=== PATIENT | female | born 1935 | race Caucasian/White ===

== ENCOUNTER 2016-08-24 08:45 | Inpatient (IN) | payer MEDICARE, OTHER ==
[2016-08-24 09:53] LABS: Hematocrit 36.5 % (37.0-47.0); Hemoglobin 11.6 gm/dL (12.5-16.0); Mean Cell Volume 88.4 fl (78-100); Mean Corpuscular Hemoglobin 28.1 pg (27-31); Mean Corpuscular Hgb Conc 31.8 g/dl (32-36); Mean Platelet Volume 9.6 fl (6.0-9.5); Platelet Count 313 K/mm3 (150-450); Red Blood Count 4.13 M/mm3 (4.2-5.4); Red Cell Distribution Width 12.7 % (11.5-14.0); White Blood Count 6.9 K/mm3 (4.0-10.5)
[2016-08-24 10:25] LABS: Albumin * 3.6 gm/dl (3.4-5.0); Anion Gap 13.8 mmol/L (6.8-13.8); Bilirubin, Total 0.6 mg/dL (0.0-1.1); Ca. Corrected For Albumin 8.9 mg/dL (8.4-10.2); Calcium * 8.9 mg/dL (7.9-10.9); Carbon Dioxide 26.3 mmol/L (24-32.6); Potassium 4.1 mmol/L (3.4-4.6); T4 Free * 1.07 ng/dL (0.76-1.46); TSH * 2.315 uIU/mL (0.358-3.74); Total Protein 7.6 gm/dL (6.2-8.2)
[2016-08-24] MEDS ORDERED: ACETAMINOPHEN 325 MG TABLET PO PRN (10:29)
[2016-08-24] MEDS: POTASSIUM CHLORIDE 40 MEQ in NORMAL SALINE 1,000 ML IV SCH (11:25)
[2016-08-24] MEDS: ENOXAPARIN SODIUM 40 MG/0.4 ML SYRG SC SCH (11:26)
--- NOTE | 2016-08-24 16:30 | HP ---
Chief Complaint - Chief Complaint Date of Service: 08/24/16 Time of Service: 00:45 Chief Complaint: Lightheadedness and passing out History of Present Illness: The patient complains of being lightheaded and passing out that has progressively gotten worse to the point that the patient states she is having multiple episodes daily. I originally saw the patient in the office for this issue on 05.09.2016. At that time, the patient reported that she had been lightheaded and dizzy since 2006 and that she has already had multiple tests done and was wondering if there was anything else we could do. She has gone through vestibular rehab without change in symptoms. She has seen ENT and ophthalmology without identification of etiology or improvement in symptoms. When describing these episodes, she states that approximately 20 seconds after she gets up from sitting she will have dizziness that will only last a few seconds before going away. She admits that it does not happen every time she stands and it was previously very intermittent but is now much more often and when she has an "epidose", she states it is quite bothersome. She denies any shortness of breath or chest pain. She admits to recently worsening vision that is blurry, fatigue, headaches, tremors and forgetfullness. She also admits to unintentional weight loss and her records show that she weighed 83.8kg less than one year ago on 08.31.2015 and she now weighs 74.8kg. Of note, patient has a history of ovarian cancer diagnosed around 2005 and she underwent surgery and states everything was taken care of with surgery and she has not followed with anyone regarding her cancer since she had surgery. Her most recent mammogram in April 2016 was fine. Her most recent colonoscopy in 2010 was also fine. She had a cardiac stress test in March 2012 which showed no signs of ischemia or infarct. Her recent 2D echo on 05.17.2016 was essentially unremarkable and showed EF 65-70%, mild LVH, LA mildly dilated, negative for septal defect. - Patient's Past Medical History Patient History - Medical: Diabetes Type 2, Depression, GERD, Osteoarthritis Patient History - Cardiac/Respiratory: No pertinent hx Patient History - Cancer: Chemotherapy history, Ovarian Patient History - Surgical Procedures: Cataracts, Colonoscopy, Hysterectomy, Other - oophorectomy LMP (females 10-50): Menopausal - Family History Brother Family History - Medical: Family History - Cardiac/Respiratory: Myocardial Infarction Father Family History - Medical: Mother Family History - Medical: , Diabetes Type 2 Insulin Dependent Sister Family History - Cardiac/Respiratory: Myocardial Infarction - Social History Living Situations: alone Does anyone smoke in the home?: No Smoking Status: Never smoker Have you smoked in the past 12 months: No Do you dip or chew tobacco: No Patient requests Smoking Cessation Consult: No Initiate information on Smoking Cessation: No Alcohol Use: none Drug Use: none Review Of Systems (GEN) - Review of Systems Generalized/Overall Review: Present: Fatigue, Weight loss. Absent: Chills, Fever EENTM: Present: Blurred Vision Respiratory: Present: No Symptoms Reported. Absent: Cough, Shortness of Breath Cardiac: Present: No Symptoms Reported, Syncope. Absent: Chest Pain, Edema, Palpitations Abdominal: Absent: Nausea, Vomiting, Constipation, Diarrhea, Melena, Bright blood from rectum Genitourinary: Present: No Symptoms Reported Musculoskeletal: Present: No Symptoms Reported Neurological: Present: Headache, Tremors, Other - Forgetful Skin: Present: No Symptoms Reported Endocrine: Present: No Symptoms Reported Allergies/Adverse Reactions: Allergies Allergy/AdvReac Type Severity Reaction Status Date / Time azithromycin [From Zithromax] Allergy Mild Hives Verified 08/24/16 10:43 erythromycin base AdvReac Mild NAUSEA, Verified 08/24/16 10:43 [Erythromycin Base] VOMITING Home Medications: HOME MEDICATIONS Aspirin [Aspirin Chewable] 81 mg PO DAILY 03/18/15 [Last Taken Unknown] Cyanocobalamin [Vitamin B-12] 1,000 mcg PO DAILY 03/18/15 [Last Taken Unknown] Docusate Sodium [Doc-Q-Lace] 100 mg PO DAILY 03/18/15 [Last Taken Unknown] Ibuprofen [Motrin] 200 mg PO Q6H PRN 08/24/16 [Last Taken Unknown] Multivitamin [One Daily Essential] 1 each PO DAILY 08/24/16 [Last Taken Unknown] Omeprazole [Prilosec] 20 mg PO DAILY 08/24/16 [Last Taken Unknown] Exam - Exam Vital Signs: Vital Signs - Last Taken Temp 36.4 C L 08/24/16 09:30 Pulse 72 08/24/16 14:06 Resp 20 08/24/16 09:30 BP 103/39 08/24/16 14:05 Pulse Ox 96 01/25/17 09:30 Constitutional: Present: Alert, Oriented x3, Cooperative, Well developed, Well nourished, No distress, Elderly ENT Exam: Present: normal ENT inspection, hearing grossly normal, pharynx normal , TMs normal, moist mucous membranes Eye Exam: bilateral eye: normal inspection, PERRL, EOMI, other - No nystagmus appreciated Neck: Present: non-tender, normal inspection Respiratory: Present: lungs clear, normal breath sounds, no respiratory distress , no accessory muscle use Cardiovascular/Chest: Present: regular rate, rhythm, no JVD, no murmur, other - Trace lower extremity edema bilaterally Peripheral Pulses: carotid (R): 2+, carotid (L): 2+ Abdomen: Present: Normal bowel sounds, soft, nontender, nondistended, no rebound tenderness Extremity: Present: normal inspection, pedal edema - trace Skin Exam: Present: normal color, warm/dry. Absent: skin rash Neurologic: Present: no motor/sensory deficits, alert, normal mood/affect, oriented x 3 Appearance: Present: appropriate appearance, appropriate insight, neat, no memory impairment Eye contact: Present: cooperative, good eye contact, normal speech Thoughts: Present: normal thought pattern, no apparent hallucination Diagnostic Studies: Abnormal Lab Results 08/24/16 08/24/16 Range/Units 09:51 09:51 RBC 4.13 L (4.2-5.4) M/mm3 Hgb 11.6 L (12.5-16.0) gm/dL Hct 36.5 L (37.0-47.0) % MCHC 31.8 L (32-36) g/dl MPV 9.6 H (6.0-9.5) fl Est GFR (Non-Af Amer) 52 L (60-130) mL/min Random Glucose 149 H (70-110) mg/dL ALT 18 L (19-67) U/L Laboratory Results WBC 6.9 K/mm3 (4.0-10.5) 08/24/16 09:51 RBC 4.13 M/mm3 (4.2-5.4) L 08/24/16 09:51 Hgb 11.6 gm/dL (12.5-16.0) L 08/24/16 09:51 Hct 36.5 % (37.0-47.0) L 08/24/16 09:51 MCV 88.4 fl (78-100) 08/24/16 09:51 MCH 28.1 pg (27-31) 08/24/16 09:51 MCHC 31.8 g/dl (32-36) L 08/24/16 09:51 RDW 12.7 % (11.5-14.0) 08/24/16 09:51 Plt Count 313 K/mm3 (150-450) 08/24/16 09:51 MPV 9.6 fl (6.0-9.5) H 08/24/16 09:51 Sodium 139 mmol/L (132-142) 08/24/16 09:51 Plasma Sodium 140 mmol/L (130-142) 08/24/16 09:51 Potassium 4.1 mmol/L (3.4-4.6) D 08/24/16 09:51 Chloride 103 mmol/L (97-106) 08/24/16 09:51 Carbon Dioxide 26.3 mmol/L (24-32.6) 08/24/16 09:51 Anion Gap 13.8 mmol/L (6.8-13.8) 08/24/16 09:51 BUN 13 mg/dL (3-23) 08/24/16 09:51 Creatinine 1.08 mg/dL (0.4-1.4) 08/24/16 09:51 Est GFR (Non-Af Amer) 52 mL/min (60-130) L 08/24/16 09:51 BUN/Creatinine Ratio 12.0 (9.0-21.6) 08/24/16 09:51 Random Glucose 149 mg/dL (70-110) H 08/24/16 09:51 Calcium 8.9 mg/dL (7.9-10.9) 08/24/16 09:51 Calcium Adj for Albumin 8.9 mg/dL (8.4-10.2) 08/24/16 09:51 Total Bilirubin 0.6 mg/dL (0.0-1.1) 08/24/16 09:51 AST 15 U/L (0-48) 08/24/16 09:51 ALT 18 U/L (19-67) L 08/24/16 09:51 Alkaline Phosphatase 52 U/L (50-170) 08/24/16 09:51 Total Protein 7.6 gm/dL (6.2-8.2) 08/24/16 09:51 Albumin 3.6 gm/dl (3.4-5.0) 08/24/16 09:51 TSH 2.315 uIU/mL (0.358-3.74) 08/24/16 09:51 Free T4 1.07 ng/dL (0.76-1.46) 08/24/16 09:51 Assessment/Plan - Narrative Narrative: IMPRESSION AND PLAN: Syncope -Monitor on telemetry -Orthostatic vitals q8h -IVF hydration with NS + 40mEq KCL @ 75cc/hr -Check cortisol level, TSH -Check MRI brain and carotid ultrasound -Given history of ovarian cancer and weight loss in combination with progressively worsening syncope and near syncope, order placed for CT chest, abdomen and pelvis both with and without contrast -PT evaluation and treatment -If work-up unrevealing, consider tilt table testing and/or cardiology consult Unintentional Weight Loss -Await CT results CHRONIC, STABLE MEDICAL CONDITIONS: Type 2 DM: Diet controlled. Recent A1c 6.6%. HLD: Diet controlled. GERD: Continue home PPI VTE Prophylaxis: Lovenox, SCDs Code Status: Full Code - Assessment/Plan (1) Syncopal episodes Problem: Acute (2) Syncope Problem: Acute (3) Orthostasis Problem: Acute (4) Orthostatic hypotension Problem: Acute (5) Weight loss Problem: Acute
[2016-08-25] MEDS ORDERED: DIATRIZOATE MEGLU/DIATRIZO SOD 30 ML BTL PO ONE (05:30)
[2016-08-25 06:33] LABS: Anion Gap 13.3 mmol/L (6.8-13.8); BUN/Creatinine Ratio 13.2 (9.0-21.6); Calcium * 8.2 mg/dL (7.9-10.9); Carbon Dioxide 26.2 mmol/L (24-32.6); Estimated Creat Clear 29.3; Magnesium 1.7 mg/dL (1.2-2.8); Potassium 4.5 mmol/L (3.4-4.6)
[2016-08-25] MEDS: PANTOPRAZOLE SODIUM 20 MG TABLET.DR PO SCH (07:01)
[2016-08-25] MEDS: DOCUSATE SODIUM 100 MG CAPSULE PO SCH (09:33)
[2016-08-25] MEDS: CYANOCOBALAMIN 1,000 MCG TABLET PO SCH (09:33)
[2016-08-25] MEDS: ASPIRIN 81 MG TAB.CHEW PO SCH (09:33)
[2016-08-25] MEDS: MULTIVITAMINS 1 CAP CAPSULE PO SCH (09:33)
[2016-08-25] MEDS: FLUDROCORTISONE ACETATE 0.1 MG TABLET PO SCH (11:09)
[2016-08-25] MEDS: ENOXAPARIN SODIUM 40 MG/0.4 ML SYRG SC SCH (11:09)
--- NOTE | 2016-08-25 15:11 | PN ---
Subjective - Date and Time Seen Date: 08/25/16 Time: 08:30 Subjective Narrative: Patient seen and examined this AM shortly after completing her CT scans. No acute issues overnight and she denies any new issues or concerns. Continues to have intermittent lightheadedness with standing. Objective - Review of Systems Generalized/Overall Review: Reports: Fatigue, Weight loss. Denies: Chills, Fever EENTM: Reports: Blurred Vision Respiratory: Reports: No Symptoms Reported. Denies: Shortness of Breath Cardiac: Reports: Syncope, Other - Lightheaded, orthostatic symptoms. Denies: Chest Pain, Edema, Palpitations Abdominal: Reports: No Symptoms Reported Genitourinary Symptoms: Reports: No Symptoms Reported Musculoskeletal Complaints: Reports: No Symptoms Reported Neurological: Reports: Headache, Tremors Skin: Reports: No Symptoms Reported Endocrine: Reports: No Symptoms Reported - Vitals Vitals: Last Vital Signs Temp 36.7 C 08/25/16 10:16 Pulse 78 08/25/16 10:16 Resp 20 08/25/16 10:16 BP 154/53 08/25/16 10:16 Pulse Ox 99 08/25/16 10:16 - Abnormal Lab Findings Abnormal Lab Findings: Abnormal Lab Results 08/25/16 Range/Units 06:05 Plasma Sodium 143 H (130-142) mmol/L Est GFR (Non-Af Amer) 53 L (60-130) mL/min Random Glucose 246 H D (70-110) mg/dL - Exam Constitutional: Present: Alert, Oriented x3, Cooperative, Well developed, Well nourished, No distress, Elderly ENT Exam: Present: normal ENT inspection, hearing grossly normal Respiratory: Present: lungs clear, normal breath sounds, no respiratory distress , no accessory muscle use Cardiovascular/Chest: Present: regular rate, rhythm, no JVD Abdomen: Present: Normal bowel sounds, soft, nontender, nondistended, no rebound tenderness Extremity: Present: normal inspection Skin Exam: Present: warm/dry. Absent: skin rash Neurologic: Present: no motor/sensory deficits, alert, normal mood/affect, oriented x 3 Appearance: Present: appropriate appearance, appropriate insight, neat, no memory impairment Eye contact: Present: cooperative, good eye contact, normal speech Thoughts: Present: normal thought pattern, no apparent hallucination Assessment/Plan Plan Narrative: IMPRESSION AND PLAN: Syncope -Orthostatic Hypotension. Work-up unrevealing thus far. Start fludrocortisone daily. Continue to monitor orthostatic vitals. -Admit Inpatient. Despite IVFs, patient remains orthostatic. -No events on telemetry. Discontinue tele today. -Continue Orthostatic vitals q8h -Continue IVF hydration with NS + 40mEq KCL @ 75cc/hr -Thyroid studies unremarkable -Cortisol level pending -CT chest/abdomen/pelvis, MRI brain and carotid ultrasound unremarkable -PT evaluation and treatment CHRONIC, STABLE MEDICAL CONDITIONS: Type 2 DM: Diet controlled. Recent A1c 6.6%. HLD: Diet controlled. GERD: Continue home PPI VTE Prophylaxis: Lovenox, SCDs Code Status: Full Code Disposition: Fludrocortisone started today. Continue to monitor orthostatic vitals. Possible discharge tomorrow (.) but most likely discharge home on Monday (08.27). - Problems/Diagnosis (1) Syncopal episodes Problem: Acute (2) Syncope Problem: Acute (3) Orthostasis Problem: Acute (4) Orthostatic hypotension Problem: Acute (5) Weight loss Problem: Acute
[2016-08-25] MEDS: POTASSIUM CHLORIDE 40 MEQ in NORMAL SALINE 1,000 ML IV SCH ×3 (16:44)
[2016-08-26] MEDS: POTASSIUM CHLORIDE 40 MEQ in NORMAL SALINE 1,000 ML IV SCH (05:56)
[2016-08-26] MEDS: PANTOPRAZOLE SODIUM 20 MG TABLET.DR PO SCH (07:12)
[2016-08-26] MEDS: DOCUSATE SODIUM 100 MG CAPSULE PO SCH (09:44)
[2016-08-26] MEDS: CYANOCOBALAMIN 1,000 MCG TABLET PO SCH (09:44)
[2016-08-26] MEDS: ASPIRIN 81 MG TAB.CHEW PO SCH (09:44)
[2016-08-26] MEDS: MULTIVITAMINS 1 CAP CAPSULE PO SCH (09:44)
[2016-08-26] MEDS: FLUDROCORTISONE ACETATE 0.1 MG TABLET PO SCH (09:44)
[2016-08-26] MEDS: ENOXAPARIN SODIUM 40 MG/0.4 ML SYRG SC SCH (12:53)
--- NOTE | 2016-08-26 13:19 | PN ---
Subjective - Date and Time Seen Date: 08/26/16 Time: 08:30 Subjective Narrative: Patient seen and examined this AM. No acute issues overnight and she denies any new issues or concerns. She was up this AM and had orthostatic vitals completed and she did not experience any lightheadedness. Objective - Review of Systems Generalized/Overall Review: Reports: Fatigue, Weight loss. Denies: Chills, Fever EENTM: Reports: Blurred Vision Respiratory: Reports: No Symptoms Reported. Denies: Shortness of Breath Cardiac: Reports: No Symptoms Reported. Denies: Chest Pain, Edema, Palpitations , Syncope Abdominal: Reports: No Symptoms Reported Genitourinary Symptoms: Reports: No Symptoms Reported Musculoskeletal Complaints: Reports: No Symptoms Reported Neurological: Reports: No Symptoms Reported Skin: Reports: No Symptoms Reported Endocrine: Reports: No Symptoms Reported - Vitals Vitals: Last Vital Signs Temp 36.8 C 08/26/16 10:26 Pulse 63 08/26/16 10:26 Resp 16 08/26/16 10:26 BP 160/90 08/26/16 10:26 Pulse Ox 99 08/26/16 10:26 - Exam Constitutional: Present: Alert, Oriented x3, Cooperative, Well developed, Well nourished, No distress, Elderly ENT Exam: Present: normal ENT inspection, moist mucous membranes Respiratory: Present: lungs clear, normal breath sounds, no respiratory distress , no accessory muscle use Cardiovascular/Chest: Present: regular rate, rhythm, no edema, no JVD Abdomen: Present: soft, nontender, nondistended, no rebound tenderness, other - Hypoactive BS Extremity: Present: normal inspection Skin Exam: Present: warm/dry. Absent: skin rash Neurologic: Present: no motor/sensory deficits, alert, normal mood/affect, oriented x 3 Appearance: Present: appropriate appearance, appropriate insight Eye contact: Present: cooperative, good eye contact, normal speech Thoughts: Present: normal thought pattern, no apparent hallucination Assessment/Plan Plan Narrative: IMPRESSION AND PLAN: Syncope -Orthostatic Hypotension. Work-up unrevealing thus far. Fludrocortisone 0.1mg daily started on 08/25/2016. Orthostatic vitals signs improved. Patient denies any episodes of lightheadedness since starting medication. Continue to monitor orthostatic vitals. -No events on telemetry -Continue Orthostatic vitals q8h -Discontinue IVFs today -Thyroid studies unremarkable -Cortisol level pending -CT chest/abdomen/pelvis, MRI brain and carotid ultrasound unremarkable -PT evaluation and treatment CHRONIC, STABLE MEDICAL CONDITIONS: Type 2 DM: Diet controlled. Recent A1c 6.6%. HLD: Diet controlled. GERD: Continue home PPI VTE Prophylaxis: Lovenox, SCDs Code Status: Full Code Disposition: Continue to monitor orthostatic vitals. Plan to discharge home tomorrow, 08/27/2016. Patient instructed to monitor BP at home while supine, sitting and standing and bring a log a BP readings to her follow-up appointment with me. I will plan to have the patient follow-up with me in clinic in 1 week after discharge. - Problems/Diagnosis (1) Syncopal episodes Problem: Acute (2) Syncope Problem: Acute (3) Orthostasis Problem: Acute (4) Orthostatic hypotension Problem: Acute (5) Weight loss Problem: Acute
--- NOTE | 2016-08-26 16:48 | PN ---
Progess Note - Interim Narrative: 08/26/16 16:47 Patient with multiple episodes this afternoon. Hold off on discharge plans for now. EEG ordered. Continue fludrocortisone. Patient likely will be here through the weekend with possible discharge home on Monday (08/29/2016).
[2016-08-27 05:55] LABS: Anion Gap 9.4 mmol/L (6.8-13.8); BUN/Creatinine Ratio 12.6 (9.0-21.6); Calcium * 8.6 mg/dL (7.9-10.9); Carbon Dioxide 27.6 mmol/L (24-32.6); Estimated Creat Clear 35.8
--- NOTE | 2016-08-27 06:12 | PN ---
<Stefany Norman - Last Filed: 08/27/16 06:21> Subjective - Date and Time Seen Date: 08/27/16 Time: 06:09 Subjective Narrative: Ms Nguyen had an uneventful night. Denies feeling dizzy with ambulation or whenever changing positions. No issues according to nursing. Objective - Vitals Vitals: Last Vital Signs Temp 35.8 C L 08/27/16 02:55 Pulse 75 08/27/16 02:55 Resp 20 08/27/16 02:55 BP 133/46 08/27/16 02:55 Pulse Ox 97 08/27/16 02:55 - Exam Constitutional: Present: Alert, Oriented x3, No distress, Elderly ENT Exam: Present: normal ENT inspection, hearing grossly normal. Absent: nasal congestion, nasal drainage Neck: Present: full range of motion, supple, normal inspection, trachea midline Breasts: Present: Exam deferred Respiratory: Present: lungs clear, no accessory muscle use Cardiovascular/Chest: Present: normal peripheral pulses, regular rate, rhythm, no murmur Abdomen: Present: Normal bowel sounds, soft, nontender /Rectal: Present: Exam deferred Extremity: Present: non-tender, normal inspection, no pedal edema Skin Exam: Present: warm/dry, no cyanosis Lymphatic: Present: no adenopathy Neurologic: Present: no motor/sensory deficits, alert, oriented x 3 Appearance: Present: appropriate appearance, appropriate insight Eye contact: Present: cooperative, good eye contact, normal speech Thoughts: Present: normal thought pattern, no apparent hallucination Assessment/Plan - Problems/Diagnosis (1) Syncopal episodes Problem: Acute Narrative: -Orthostatic Hypotension. Work-up unrevealing thus far. Fludrocortisone 0.1mg daily started on 08/25/2016. Orthostatic vitals signs improved. Patient denies any episodes of lightheadedness since starting medication. Continue to monitor orthostatic vitals. -No events on telemetry -Continue Orthostatic vitals q8h -Thyroid studies unremarkable -Cortisol level pending -CT chest/abdomen/pelvis, MRI brain and carotid ultrasound unremarkable - Continue PT evaluation and treatment (2) Orthostatic hypotension Problem: Acute Narrative: Continue fludrocortisone. Patient likely will be here through the weekend with possible discharge home on Monday (08/29/2016). (3) Diabetes Problem: Chronic QualifierTitle: Diabetes mellitus type: type 2 (4) GERD (gastroesophageal reflux disease) Problem: Chronic (5) HLD (hyperlipidemia) Problem: Chronic <Sukhwinder Mcmillan - Last Filed: 08/27/16 11:40> Objective - Vitals Vitals: Last Vital Signs Temp 36.7 C 08/27/16 11:20 Pulse 67 08/27/16 11:20 Resp 20 08/27/16 11:20 BP 140/80 08/27/16 11:20 Pulse Ox 98 08/27/16 11:20 - Abnormal Lab Findings Abnormal Lab Findings: Abnormal Lab Results 08/27/16 Range/Units 04:25 Random Glucose 121 H D (70-110) mg/dL Assessment/Plan Plan Narrative: I reviewed the chart and examined the patient. I personally directed [facility] of [facility] care for this patient. The patient feels perikier and somewhat better today. We will add salt tablets, lower extremity compression, and increase the florineg dose. We will follow labs. We will continue with seizure eval, but nurses report a 40-50 mm Hg drop in orthostatic BPs.
[2016-08-27] MEDS: PANTOPRAZOLE SODIUM 20 MG TABLET.DR PO SCH (07:00)
[2016-08-27] MEDS: ASPIRIN 81 MG TAB.CHEW PO SCH (08:00)
[2016-08-27] MEDS: MULTIVITAMINS 1 CAP CAPSULE PO SCH (08:01)
[2016-08-27] MEDS: CYANOCOBALAMIN 1,000 MCG TABLET PO SCH (08:01)
[2016-08-27] MEDS: DOCUSATE SODIUM 100 MG CAPSULE PO SCH (08:01)
[2016-08-27] MEDS: SODIUM CHLORIDE 1 GM TABLET PO SCH ×4 (08:19→20:27)
[2016-08-27] MEDS: FLUDROCORTISONE ACETATE 0.1 MG TABLET PO SCH (08:20)
[2016-08-27] MEDS: ENOXAPARIN SODIUM 40 MG/0.4 ML SYRG SC SCH (10:28)
[2016-08-28 05:57] LABS: Hemoglobin 10.3 gm/dL (12.5-16.0); Mean Cell Volume 88.6 fl (78-100); Mean Corpuscular Hemoglobin 28.5 pg (27-31); Mean Corpuscular Hgb Conc 32.2 g/dl (32-36); Mean Platelet Volume 9.9 fl (6.0-9.5); Neutrophil # 3.8 K/mm3 (1.3-6.0); Neutrophil % 55.2 % (42-75.0); Platelet Count 248 K/mm3 (150-450); Red Blood Count 3.61 M/mm3 (4.2-5.4); Red Cell Distribution Width 12.8 % (11.5-14.0)
[2016-08-28 06:36] LABS: Anion Gap 9.4 mmol/L (6.8-13.8); BUN/Creatinine Ratio 14.9 (9.0-21.6); Calcium * 8.2 mg/dL (7.9-10.9); Carbon Dioxide 28.5 mmol/L (24-32.6); Estimated Creat Clear 33.1; Magnesium 1.5 mg/dL (1.2-2.8); Potassium 3.9 mmol/L (3.4-4.6)
--- NOTE | 2016-08-28 07:06 | PN ---
<Stefany Norman - Last Filed: 08/28/16 07:15> Subjective - Date and Time Seen Date: 08/28/16 Time: 07:03 Subjective Narrative: Ms Nguyen is resting comfortably this morning. Denies feeling dizzy or lightheaded with ambulation. No acute events overnight according to nursing. Objective - Vitals Vitals: Last Vital Signs Temp 36.4 C L 08/28/16 04:19 Pulse 65 08/28/16 04:19 Resp 20 08/28/16 04:19 BP 164/80 08/28/16 04:19 Pulse Ox 97 08/28/16 04:19 - Abnormal Lab Findings Abnormal Lab Findings: Abnormal Lab Results 08/28/16 08/28/16 Range/Units 05:48 05:48 RBC 3.61 L (4.2-5.4) M/mm3 Hgb 10.3 L (12.5-16.0) gm/dL Hct 32.0 L (37.0-47.0) % MPV 9.9 H (6.0-9.5) fl Eosinophils % 3.7 H (0.0-3.0) % Chloride 107 H (97-106) mmol/L Random Glucose 127 H (70-110) mg/dL - Exam Constitutional: Present: Alert, Oriented x3, No distress ENT Exam: Present: normal ENT inspection, hearing grossly normal Neck: Present: full range of motion, supple, normal inspection Breasts: Present: Exam deferred Respiratory: Present: lungs clear, no accessory muscle use, No wheezing Cardiovascular/Chest: Present: regular rate, rhythm, no murmur Abdomen: Present: Normal bowel sounds, soft, nontender /Rectal: Present: Exam deferred Extremity: Present: normal inspection, no pedal edema Skin Exam: Present: warm/dry, no cyanosis Lymphatic: Present: no adenopathy Neurologic: Present: no motor/sensory deficits, alert, normal mood/affect, oriented x 3 Appearance: Present: appropriate appearance, appropriate insight Eye contact: Present: cooperative, good eye contact, normal speech Thoughts: Present: normal thought pattern, no apparent hallucination Assessment/Plan - Problems/Diagnosis (1) Syncopal episodes Problem: Acute Narrative: -Orthostatic Hypotension. Work-up unrevealing thus far. Fludrocortisone 0.1mg daily started on 08/25/2016. Still having significant changes in Orthostatic VS but no sycope or dizziness spells. Patient denies any episodes of lightheadedness since starting medication. Continue to monitor orthostatic vitals. -No events on telemetry -Continue Orthostatic vitals q8h -Thyroid studies unremarkable -Cortisol level pending -CT chest/abdomen/pelvis, MRI brain and carotid ultrasound unremarkable - Continue PT evaluation and treatment (2) Orthostatic hypotension Problem: Acute Narrative: Continue fludrocortisone. Patient likely will be here through the weekend with possible discharge home on Monday (08/29/2016). (3) Diabetes Problem: Chronic QualifierTitle: Diabetes mellitus type: type 2 (4) GERD (gastroesophageal reflux disease) Problem: Chronic (5) HLD (hyperlipidemia) Problem: Chronic <Sukhwinder Mcmillan - Last Filed: 08/28/16 12:11> Objective - Vitals Vitals: Last Vital Signs Temp 36.6 C 08/28/16 10:28 Pulse 67 08/28/16 10:28 Resp 20 08/28/16 10:28 BP 117/62 08/28/16 10:28 Pulse Ox 95 08/28/16 10:28 - Abnormal Lab Findings Abnormal Lab Findings: Abnormal Lab Results 08/28/16 08/28/16 Range/Units 05:48 05:48 RBC 3.61 L (4.2-5.4) M/mm3 Hgb 10.3 L (12.5-16.0) gm/dL Hct 32.0 L (37.0-47.0) % MPV 9.9 H (6.0-9.5) fl Eosinophils % 3.7 H (0.0-3.0) % Chloride 107 H (97-106) mmol/L Random Glucose 127 H (70-110) mg/dL Assessment/Plan Plan Narrative: Record reviewed and patient examined. I personally directed all of Stefany Norman' s treatment of this patient. Symptoms gone and BP improved, in fact, now on the high side. Will follow labs and adjust meds. EEG is yet to be completed.
[2016-08-28] MEDS: PANTOPRAZOLE SODIUM 20 MG TABLET.DR PO SCH (07:17)
[2016-08-28] MEDS: SODIUM CHLORIDE 1 GM TABLET PO SCH ×3 (08:34→16:06)
[2016-08-28] MEDS: DOCUSATE SODIUM 100 MG CAPSULE PO SCH (08:35)
[2016-08-28] MEDS: CYANOCOBALAMIN 1,000 MCG TABLET PO SCH (08:35)
[2016-08-28] MEDS: MULTIVITAMINS 1 CAP CAPSULE PO SCH (08:35)
[2016-08-28] MEDS: FLUDROCORTISONE ACETATE 0.1 MG TABLET PO SCH (08:35)
[2016-08-28] MEDS: ASPIRIN 81 MG TAB.CHEW PO SCH (08:35)
[2016-08-28] MEDS: ENOXAPARIN SODIUM 40 MG/0.4 ML SYRG SC SCH (12:10)
[2016-08-29 06:29] LABS: Hematocrit 31.7 % (37.0-47.0); Mean Cell Volume 88.8 fl (78-100); Mean Corpuscular Hgb Conc 31.5 g/dl (32-36); Mean Platelet Volume 10.2 fl (6.0-9.5); Neutrophil # 3.6 K/mm3 (1.3-6.0); Neutrophil % 50.8 % (42-75.0); Platelet Count 248 K/mm3 (150-450); Red Blood Count 3.57 M/mm3 (4.2-5.4); Red Cell Distribution Width 12.8 % (11.5-14.0); White Blood Count 7.2 K/mm3 (4.0-10.5)
[2016-08-29 06:40] LABS: Anion Gap 9.3 mmol/L (6.8-13.8); BUN/Creatinine Ratio 19.1 (9.0-21.6); Calcium * 8.1 mg/dL (7.9-10.9); Carbon Dioxide 29.3 mmol/L (24-32.6); Potassium 3.6 mmol/L (3.4-4.6)
[2016-08-29] MEDS: PANTOPRAZOLE SODIUM 20 MG TABLET.DR PO SCH (06:44)
[2016-08-29] MEDS: MULTIVITAMINS 1 CAP CAPSULE PO SCH (08:31)
[2016-08-29] MEDS: SODIUM CHLORIDE 1 GM TABLET PO SCH ×3 (08:31→16:23)
[2016-08-29] MEDS: CYANOCOBALAMIN 1,000 MCG TABLET PO SCH (08:31)
[2016-08-29] MEDS: ASPIRIN 81 MG TAB.CHEW PO SCH (08:31)
[2016-08-29] MEDS: FLUDROCORTISONE ACETATE 0.1 MG TABLET PO SCH (08:31)
[2016-08-29] MEDS: DOCUSATE SODIUM 100 MG CAPSULE PO SCH (08:31)
[2016-08-29] MEDS: ENOXAPARIN SODIUM 40 MG/0.4 ML SYRG SC SCH (10:27)
[2016-08-30] MEDS: PANTOPRAZOLE SODIUM 20 MG TABLET.DR PO SCH (06:20)
[2016-08-30] MEDS: MULTIVITAMINS 1 CAP CAPSULE PO SCH (09:15)
[2016-08-30] MEDS: DOCUSATE SODIUM 100 MG CAPSULE PO SCH (09:15)
[2016-08-30] MEDS: FLUDROCORTISONE ACETATE 0.1 MG TABLET PO SCH (09:15)
[2016-08-30] MEDS: SODIUM CHLORIDE 1 GM TABLET PO SCH ×3 (09:15→16:04)
[2016-08-30] MEDS: ASPIRIN 81 MG TAB.CHEW PO SCH (09:15)
[2016-08-30] MEDS: CYANOCOBALAMIN 1,000 MCG TABLET PO SCH (09:15)
[2016-08-30] MEDS: ENOXAPARIN SODIUM 40 MG/0.4 ML SYRG SC SCH (10:28)
--- NOTE | 2016-08-30 11:14 | PN ---
Subjective - Date and Time Seen Date: 08/29/16 Time: 09:00 Subjective Narrative: Patient seen and examined this AM. No acute issues overnight and she denies any new issues or concerns. She is scheduled to have her EEG completed today. Objective - Review of Systems Generalized/Overall Review: Reports: No Symptoms Reported EENTM: Reports: No Symptoms Reported Respiratory: Reports: No Symptoms Reported Cardiac: Reports: No Symptoms Reported Abdominal: Reports: No Symptoms Reported Genitourinary Symptoms: Reports: No Symptoms Reported Musculoskeletal Complaints: Reports: No Symptoms Reported Neurological: Reports: No Symptoms Reported Skin: Reports: No Symptoms Reported Endocrine: Reports: No Symptoms Reported - Vitals Vitals: Last Vital Signs Temp 36.4 C L 08/30/16 07:01 Pulse 75 08/30/16 07:01 Resp 18 08/30/16 07:01 BP 190/69 08/30/16 07:01 Pulse Ox 96 08/30/16 07:01 - Exam Constitutional: Present: Alert, Oriented x3, Cooperative, No distress, Elderly ENT Exam: Present: normal ENT inspection, moist mucous membranes Respiratory: Present: lungs clear, normal breath sounds, no respiratory distress , no accessory muscle use Cardiovascular/Chest: Present: regular rate, rhythm, no edema Abdomen: Present: Normal bowel sounds, soft, nontender, nondistended, no rebound tenderness Extremity: Present: normal inspection, no pedal edema Skin Exam: Present: normal color, warm/dry. Absent: skin rash Neurologic: Present: no motor/sensory deficits, alert, normal mood/affect, oriented x 3 Appearance: Present: appropriate appearance, appropriate insight Eye contact: Present: cooperative, good eye contact, normal speech Thoughts: Present: normal thought pattern, no apparent hallucination Assessment/Plan Plan Narrative: IMPRESSION AND PLAN: Syncope -Secondary to orthostatic hypotension. Fludrocortisone 0.1mg daily started on 08/25/2016. -No events on telemetry -Continue Orthostatic vitals q8h -Thyroid studies unremarkable -Cortisol level pending -CT chest/abdomen/pelvis, MRI brain and carotid ultrasound unremarkable -PT evaluation and treatment -EEG today -Compression stockings to bilateral LE CHRONIC, STABLE MEDICAL CONDITIONS: Type 2 DM: Diet controlled. Recent A1c 6.6%. HLD: Diet controlled. GERD: Continue home PPI VTE Prophylaxis: Lovenox Code Status: Full Code Disposition: EEG today. Await results. Continue current cares. - Problems/Diagnosis (1) Syncopal episodes Problem: Acute (2) Syncope Problem: Acute (3) Orthostasis Problem: Acute (4) Orthostatic hypotension Problem: Acute (5) Weight loss Problem: Acute
--- NOTE | 2016-08-30 11:23 | PN ---
Subjective - Date and Time Seen Date: 08/30/16 Time: 08:45 Subjective Narrative: Patient seen and examined this AM. No acute issues overnight and she denies any new issues or concerns. She has not had any pre-syncopal episodes in the past 24 hours. Objective - Review of Systems Generalized/Overall Review: Reports: No Symptoms Reported EENTM: Reports: No Symptoms Reported Respiratory: Reports: No Symptoms Reported Cardiac: Reports: No Symptoms Reported Abdominal: Reports: No Symptoms Reported Genitourinary Symptoms: Reports: No Symptoms Reported Musculoskeletal Complaints: Reports: No Symptoms Reported Neurological: Reports: No Symptoms Reported Skin: Reports: No Symptoms Reported Endocrine: Reports: No Symptoms Reported - Vitals Vitals: Last Vital Signs Temp 36.4 C L 08/30/16 07:01 Pulse 75 08/30/16 07:01 Resp 18 08/30/16 07:01 BP 190/69 08/30/16 07:01 Pulse Ox 96 08/30/16 07:01 - Exam Constitutional: Present: Alert, Oriented x3, Cooperative, No distress, Elderly ENT Exam: Present: normal ENT inspection, hearing grossly normal, moist mucous membranes Respiratory: Present: lungs clear, normal breath sounds, no respiratory distress , no accessory muscle use Cardiovascular/Chest: Present: regular rate, rhythm, no edema Abdomen: Present: Normal bowel sounds, soft, nontender, nondistended, no rebound tenderness Extremity: Present: normal inspection, no pedal edema Skin Exam: Present: normal color, warm/dry. Absent: skin rash Neurologic: Present: no motor/sensory deficits, alert, normal mood/affect, oriented x 3 Appearance: Present: appropriate appearance, appropriate insight Eye contact: Present: cooperative, good eye contact, normal speech Thoughts: Present: normal thought pattern, no apparent hallucination Assessment/Plan Plan Narrative: IMPRESSION AND PLAN: Syncope -Secondary to orthostatic hypotension. Fludrocortisone 0.1mg daily started on 08/25/2016. -Continue Orthostatic vitals q8h -Thyroid studies unremarkable -Cortisol level pending -CT chest/abdomen/pelvis, MRI brain and carotid ultrasound unremarkable -PT evaluation and treatment -EEG completed on 08.29.2016 unremarkable without evidence of seizure focus -Compression stockings to bilateral LE CHRONIC, STABLE MEDICAL CONDITIONS: Type 2 DM: Diet controlled. Recent A1c 6.6%. HLD: Diet controlled. GERD: Continue home PPI VTE Prophylaxis: Lovenox Code Status: Full Code Disposition: Plan to discharge home tomorrow if patient remains symptom and episode free today. - Problems/Diagnosis (1) Syncopal episodes Problem: Acute (2) Syncope Problem: Acute (3) Orthostasis Problem: Acute (4) Orthostatic hypotension Problem: Acute (5) Weight loss Problem: Acute
[2016-08-31] MEDS: PANTOPRAZOLE SODIUM 20 MG TABLET.DR PO SCH (06:21)
[2016-08-31 08:31] VITALS: BP 122/44
[2016-08-31] MEDS: ASPIRIN 81 MG TAB.CHEW PO SCH (08:59)
[2016-08-31] MEDS: DOCUSATE SODIUM 100 MG CAPSULE PO SCH (08:59)
[2016-08-31] MEDS: SODIUM CHLORIDE 1 GM TABLET PO SCH ×2 (08:59→12:25)
[2016-08-31] MEDS: FLUDROCORTISONE ACETATE 0.1 MG TABLET PO SCH (08:59)
[2016-08-31] MEDS: MULTIVITAMINS 1 CAP CAPSULE PO SCH (08:59)
[2016-08-31] MEDS: CYANOCOBALAMIN 1,000 MCG TABLET PO SCH (09:00)
--- NOTE | 2016-08-31 10:04 | DS ---
(1) Syncopal episodes Problem: Acute (2) Syncope Problem: Acute (3) Orthostasis Problem: Acute (4) Orthostatic hypotension Problem: Acute (5) Weight loss Problem: Acute Description of Stay: ADMISSION DATE: 08.24.2016 DISCHARGE DATE: 08.31.2016 ADMISSION HPI: The patient complains of being lightheaded and passing out that has progressively gotten worse to the point that the patient states she is having multiple episodes daily. I originally saw the patient in the office for this issue on 05.09.2016. At that time, the patient reported that she had been lightheaded and dizzy since 2006 and that she has already had multiple tests done and was wondering if there was anything else we could do. She has gone through vestibular rehab without change in symptoms. She has seen ENT and ophthalmology without identification of etiology or improvement in symptoms. When describing these episodes, she states that approximately 20 seconds after she gets up from sitting she will have dizziness that will only last a few seconds before going away. She admits that it does not happen every time she stands and it was previously very intermittent but is now much more often and when she has an "epidose", she states it is quite bothersome. She denies any shortness of breath or chest pain. She admits to recently worsening vision that is blurry, fatigue, headaches, tremors and forgetfullness. She also admits to unintentional weight loss and her records show that she weighed 83.8kg less than one year ago on 08.31.2015 and she now weighs 74.8kg. Of note, patient has a history of ovarian cancer diagnosed around 2005 and she underwent surgery and states everything was taken care of with surgery and she has not followed with anyone regarding her cancer since she had surgery. Her most recent mammogram in April 2016 was fine. Her most recent colonoscopy in 2010 was also fine. She had a cardiac stress test in March 2012 which showed no signs of ischemia or infarct. Her recent 2D echo on 05.17.2016 was essentially unremarkable and showed EF 65-70%, mild LVH, LA mildly dilated, negative for septal defect. PROBLEM BASED HOSPITAL COURSE: Syncope -Secondary to orthostatic hypotension. Fludrocortisone 0.1mg daily started on 08/25/2016. -Thyroid studies unremarkable -Cortisol level pending -CT chest/abdomen/pelvis, MRI brain and carotid ultrasound unremarkable -Patient was evaluated and treated by PT during her admission -EEG completed on 08.29.2016 unremarkable without evidence of seizure focus -Compression stockings to bilateral LE CHRONIC, STABLE MEDICAL CONDITIONS: Type 2 DM: Diet controlled. Recent A1c 6.6%. HLD: Diet controlled. GERD: Continue home PPI FOLLOW-UP APPOINTMENTS: PCP within 1 week NEW OR CHANGED MEDICATIONS: Florinef 0.1mg PO daily Sodium Chloride 1gm PO TID DISCONTINUED MEDICATIONS: None Procedures Performed: none Results and Findings: Laboratory Tests 08/24/16 08/24/16 08/24/16 09:51 09:51 09:51 WBC 6.9 Hgb 11.6 L MCV 88.4 Plt Count 313 Sodium Plasma Sodium Potassium Chloride Carbon Dioxide Anion Gap BUN Creatinine Est GFR (Non-Af Amer) BUN/Creatinine Ratio Random Glucose Calcium Magnesium Total Bilirubin 0.6 AST 15 ALT 18 L Alkaline Phosphatase 52 Total Protein 7.6 Albumin 3.6 TSH 2.315 Free T4 1.07 Free T3 2.9 Free Cortisol 1.00 H 08/25/16 08/28/16 08/28/16 06:05 05:48 05:48 WBC 7.0 Hgb 10.3 L MCV 88.6 Plt Count 248 Sodium Plasma Sodium Potassium Chloride Carbon Dioxide Anion Gap BUN Creatinine Est GFR (Non-Af Amer) BUN/Creatinine Ratio Random Glucose Calcium Magnesium 1.7 1.5 Total Bilirubin AST ALT Alkaline Phosphatase Total Protein Albumin TSH Free T4 Free T3 Free Cortisol 08/29/16 08/29/16 06:22 06:22 WBC 7.2 Hgb 10.0 L MCV 88.8 Plt Count 248 Sodium 142 Plasma Sodium 142 Potassium 3.6 Chloride 107 H Carbon Dioxide 29.3 Anion Gap 9.3 BUN 17 Creatinine 0.89 Est GFR (Non-Af Amer) 65 BUN/Creatinine Ratio 19.1 Random Glucose 116 H Calcium 8.1 Magnesium Total Bilirubin AST ALT Alkaline Phosphatase Total Protein Albumin TSH Free T4 Free T3 Free Cortisol Discharge Disposition: Home self care Disposition: Home self-care Condition: Stable Discharge Activity: Activity as tolerated Discharge Diet: General/regular food Referrals: Kathi Carlosn DO [Primary Care Provider] - Problem Oriented Discharge Instructions to Patient/Family: Hypotension, Easy-to -Read Additional Patient Instructions (free text): Follow-up with PCP, Dr. Carlson, on Monday or Goldie next week. follow up on 09-06 @ 2:30 pm. Prescriptions (Any new or edited meds): Fludrocortisone Acetate [Florinef] 0.1 mg PO DAILY #30 tablet Sodium Chloride 1 gm PO TID #90 tablet Complete Home Medications List: Complete Home Medication List: Aspirin [Aspirin Chewable] 81 mg PO DAILY 03/18/15 Cyanocobalamin [Vitamin B-12] 1,000 mcg PO DAILY 03/18/15 Docusate Sodium [Doc-Q-Lace] 100 mg PO DAILY 03/18/15 Ibuprofen [Motrin] 200 mg PO Q6H PRN 08/24/16 Multivitamin [One Daily Essential] 1 each PO DAILY 08/24/16 Omeprazole [Prilosec] 20 mg PO DAILY 08/24/16 Fludrocortisone Acetate [Florinef] 0.1 mg PO DAILY #30 tablet 08/31/16 Sodium Chloride 1 gm PO TID #90 tablet 08/31/16
[2016-08-31] MEDS: ENOXAPARIN SODIUM 40 MG/0.4 ML SYRG SC SCH (10:27)
== END 2016-08-31 13:00 | disposition home or self-care (01) | DRG 312 ==
LOC: MS 08:45 → OBSVTOIN 08-25 08:45
PROVIDERS: ADMIT Internal Medicine; ATTEND Internal Medicine
DX: I95.1 Orthostatic hypotension (principal); R63.4 Abnormal weight loss; Z68.33 Body mass index [BMI] 33.0-33.9, adult; E11.9 Type 2 diabetes mellitus without complications; K21.9 Gastro-esophageal reflux disease without esophagitis; Z79.82 Long term (current) use of aspirin; Z85.43 Personal history of malignant neoplasm of ovary
CPT/HCPCS: 36415; 70553; 71260; 74178; 80048; 80053; 82530; 83735; 84439; 84443; 84481; 85025; 85027; 93880; 95812; 97110; 97112; 97116; 97162; 97530; G0378; G0379

== ENCOUNTER 2016-10-12 08:51 | Inpatient (IN) | payer MEDICARE, OTHER ==
--- OUTSIDE RECORDS SUMMARY | 2016-10-12 09:24 | XMS REPORT | Continuity of Care Document ---
:1935 Author Organization [facility] ([facility]) Address [address] [place] [address] Phone [phone] Care Team Providers Name Role Phone Harry Andrew Primary Care Provider Unavailable Source Comments This disclosure is being made pursuant to the Care Everywhere program, applicable federal and state laws, and may not contain all informaitonavailable regarding this patient.[facility] ([facility]) Active Allergies and Adverse Reactions Allergen Noted Date Severity Reactions Comments Azithromycin 02/06/2013 Urticaria (Hives),Rash Erythromycin 02/06/2013 Nausea & Vomiting Current Medications Prescription Sig. Disp. Refills Start Date End Date Status aspirin 81 mg tablet take 81 mg by Active mouth daily. docusate (STOOL SOFTENER) take 100 mg by Active 100 mg capsule mouth 2 times daily. OMEPRAZOLE MAGNESIUM take by mouth. Active (PRILOSEC OTC PO) glimepiride (AMARYL) 1 mg Take 1 mg by mouth Active tablet Every morning. atorvastatin (LIPITOR) 10 Take 10 mg by Active mg tablet mouth every evening. ACETAMINOPHEN (TYLENOL Take 650 mg by Active PO) mouth 2 times daily. TRAMADOL 50 mg tablet 08/14/2013 Active oxyCODONE-acetaminophen Take 1 Tab by 30 Tab 0 08/29/2013 Active 5-325 mg per tablet mouth every 6 hours as needed for Pain. Indications: PAIN nabumetone 750 mg tablet Take 750 mg by Active mouth 2 times daily. ALPRAZolam 0.25 mg tablet Take 0.25 mg by Active mouth at bedtime as needed. estrogens, conjugated Insert 3 times a 30 g 11 10/29/2015 Active (PREMARIN) 0.625 mg/gram week for one week, vaginal cream then 2 times a week for one week, then once weekly for a month. 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 Tumor Board recommendations were for six cycles of Taxol and carboplatin. Six cycles were completed on 05/05/06. 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 Weight 81.8 kg (180 lb 5.4 oz) 10/29/2015 3:09 PM CDT Body Mass Index 36.4 10/29/2015 3:09 PM CDT Oxygen Saturation 97% 10/29/2015 3:09 PM CDT Plan of Care Date Type Specialty Providers Description 10/27/2016 Appointment Heart and Vascular Carolyne Solis MD Chief Comp: Patient [address] [place] [address] Visit [phone] (Fax) Health Maintenance Due Date Last Done Comments Hepatitis B Vaccine (1 of 3 - Primary 1935 Series) Tdap Vaccine 1948 Lipid Disorder Screening 1953 Td Vaccine 1953 Zoster Vaccine 1997 Osteoporosis Screening (DXA Bone Density) 2002 Pneumococcal Vaccine (1 of 2 - PCV13) 2002 Mammogram 01/13/2011 01/13/2010, 05/07/1998 Influenza Vaccine: Seasonal (#1) 02/29/2016 05/05/2006 Colonoscopy 01/14/2020 01/13/2010 Results from Last 3 Months Not on file
[2016-10-12] MEDS: LISINOPRIL 10 MG TABLET PO SCH (10:59)
[2016-10-12] MEDS: hydrALAZINE HCL 20 MG/ML VIAL IV PRN (12:13)
[2016-10-12] MEDS: ENOXAPARIN SODIUM 40 MG/0.4 ML SYRG SC SCH (14:48)
--- NOTE | 2016-10-12 15:25 | HP ---
Chief Complaint - Chief Complaint Date of Service: 10/12/16 Time of Service: 15:28 Chief Complaint: Lightheaded, elevated BP History of Present Illness: Patient was here at [facility] for physical therapy and when she walked in to the rehab area and went up to the check-in counter, she felt lightheaded, dizzy and like she was going to pass out. Patient'ss BP was checked in physical therapy and was 214/100 1st reading, 184/94 2nd reading, and 184/97 3rd reading. My RN, Racheal, went down to physical therapy and transferred patient by wheelchair up to the Internal Medicine clinic to be evaluated. My RN rechecked patient's BP in office which was 192/106mmHg with a pulse of 80bpm. Patient reports she hasn' t taken her meds this morning but admits she hasn't been feeling well for a couple of days. She has been lightheaded, unable to focus, vertigo, and headache. Patient admitted from clinic for observation for hypertensive urgency and near syncope. Patient does have a long standing history of similar episodes. Please see previous hospital notes for details. - Patient's Past Medical History Patient History - Medical: Diabetes Type 2, Depression, GERD, Osteoarthritis Patient History - Cardiac/Respiratory: Hyperlipidemia Patient History - Cancer: Chemotherapy history, Ovarian Patient History - Surgical Procedures: Cataracts, Colonoscopy, Hysterectomy, Other Patient History - Other: Immunosuppresive Tx >3mo - Family History Brother Family History - Medical: Family History - Cardiac/Respiratory: Myocardial Infarction Father Family History - Medical: Mother Family History - Medical: , Diabetes Type 2 Insulin Dependent Sister Family History - Cardiac/Respiratory: Myocardial Infarction - Social History Living Situations: alone Abuse History: No History of abuse Psych History: Hx of Depression Does anyone smoke in the home?: No Smoking Status: Never smoker Have you smoked in the past 12 months: No Do you dip or chew tobacco: No Alcohol Use: none Drug Use: none Review Of Systems (GEN) - Review of Systems Generalized/Overall Review: Present: Weakness, Fatigue EENTM: Present: No Symptoms Reported Respiratory: Present: No Symptoms Reported Cardiac: Present: Syncope - Near syncope, Other - Lightheaded, dizzy, orthostatic symptoms. Absent: Chest Pain Abdominal: Present: No Symptoms Reported Genitourinary: Present: No Symptoms Reported Musculoskeletal: Present: No Symptoms Reported Neurological: Present: Headache, Anxiety, Depressed, Tremors, Other - Forgetful , lack of focus/decreased concentration. Absent: Seizure Skin: Present: No Symptoms Reported Endocrine: Present: No Symptoms Reported Misc: All systems neg except as marked Allergies/Adverse Reactions: Allergies Allergy/AdvReac Type Severity Reaction Status Date / Time azithromycin [From Zithromax] Allergy Mild Hives Verified 08/24/16 10:43 erythromycin base AdvReac Mild NAUSEA, Verified 08/24/16 10:43 [Erythromycin Base] VOMITING Home Medications: HOME MEDICATIONS Aspirin [Aspirin Chewable] 81 mg PO DAILY 03/18/15 [Last Taken Unknown] Cyanocobalamin [Vitamin B-12] 1,000 mcg PO DAILY 03/18/15 [Last Taken Unknown] Docusate Sodium [Doc-Q-Lace] 100 mg PO DAILY 03/18/15 [Last Taken Unknown] Ibuprofen [Motrin] 200 mg PO Q6H PRN 08/24/16 [Last Taken Unknown] Multivitamin [One Daily Essential] 1 each PO DAILY 08/24/16 [Last Taken Unknown] Omeprazole [Prilosec] 20 mg PO DAILY 08/24/16 [Last Taken Unknown] Fludrocortisone Acetate [Florinef] 0.2 mg PO DAILY 10/12/16 [Last Taken Unknown] Sodium Chloride 1 gm PO BID 10/12/16 [Last Taken Unknown] Exam - Exam Vital Signs: Vital Signs - Last Taken Temp 36.8 C 10/12/16 09:30 Pulse 64 10/12/16 12:13 Resp 18 10/12/16 09:30 BP 236/74 10/12/16 12:13 Pulse Ox 96 10/12/16 09:30 Constitutional: Present: Alert, Oriented x3, Cooperative, No distress, Elderly ENT Exam: Present: hearing grossly normal, moist mucous membranes Eye Exam: bilateral eye: normal inspection, PERRL, EOMI Neck: Present: non-tender, normal inspection Respiratory: Present: lungs clear, normal breath sounds, no respiratory distress , no accessory muscle use Cardiovascular/Chest: Present: regular rate, rhythm, no JVD, no murmur, edema - Trace Abdomen: Present: Normal bowel sounds, soft, nontender, nondistended, no rebound tenderness Extremity: Present: normal inspection, no calf tenderness, pedal edema - trace Skin Exam: Present: warm/dry Neurologic: Present: no motor/sensory deficits, alert, normal mood/affect, oriented x 3 Appearance: Present: appropriate appearance, appropriate insight, neat Eye contact: Present: cooperative, good eye contact, normal speech Thoughts: Present: normal thought pattern, no apparent hallucination Assessment/Plan - Narrative Narrative: IMPRESSION AND PLAN: Hypertensive Urgency -Decrease fludrocortisone to 0.1mg daily -Discontinue sodium chloride -Start Lisinopril 10mg daily -Hydralazine IV PRN SBP>180 or DBP>100mmHg Pre-Syncope -Orthostatic vitals q8h while awake -Patient scheduled to see cardiology as an outpatient CHRONIC, STABLE MEDICAL CONDITIONS: Type 2 DM: Diet controlled. Recent A1c 6.6%. HLD: Diet controlled. GERD: Continue home PPI VTE Prophylaxis: Lovenox, compression stockings Code Status: Full Code Disposition: Monitor BP closely over the next 24 hours with tentative plan to discharge patient home tomorrow if BP is improved. - Assessment/Plan (1) Hypertensive urgency Problem: Acute (2) Pre-syncope Problem: Acute
[2016-10-12 15:43] LABS: Hematocrit 35.4 % (37.0-47.0); Hemoglobin 11.1 gm/dL (12.5-16.0); Mean Cell Volume 85.3 fl (78-100); Mean Corpuscular Hemoglobin 26.7 pg (27-31); Mean Corpuscular Hgb Conc 31.4 g/dl (32-36); Mean Platelet Volume 9.8 fl (6.0-9.5); Platelet Count 293 K/mm3 (150-450); Red Blood Count 4.15 M/mm3 (4.2-5.4); Red Cell Distribution Width 13.3 % (11.5-14.0); White Blood Count 10.1 K/mm3 (4.0-10.5)
[2016-10-12 15:48] LABS: Anion Gap 12.8 mmol/L (6.8-13.8); BUN/Creatinine Ratio 13.3 (9.0-21.6); Calcium * 7.7 mg/dL (7.9-10.9); Carbon Dioxide 28.6 mmol/L (24-32.6); Estimated Creat Clear 34.6
[2016-10-12 16:02] LABS: Potassium 2.4 mmol/L (3.4-4.6)
[2016-10-12] MEDS ORDERED: POTASSIUM CHLORIDE 20 MEQ TABLET.SA PO STA (16:15)
--- NOTE | 2016-10-12 16:42 | PN ---
Progess Note - Interim Narrative: 10/12/16 16:41 Severe hypokalemia noted on bloodwork. Potassium replacement ordered. Recheck potassium level at 2100 tonight and recheck BMP in AM.
[2016-10-12] MEDS: ACETAMINOPHEN 325 MG TABLET PO PRN ×2 (16:52→20:29)
[2016-10-12] MEDS: ASPIRIN 81 MG TAB.CHEW PO SCH (16:53)
[2016-10-12] MEDS: ESCITALOPRAM OXALATE 10 MG TAB PO SCH (17:02)
[2016-10-12] MEDS: POTASSIUM CHLORIDE 20 MEQ TABLET.SA PO SCH (20:25)
[2016-10-13 06:31] LABS: Anion Gap 12.3 mmol/L (6.8-13.8); BUN/Creatinine Ratio 16.3 (9.0-21.6); Calcium * 7.8 mg/dL (7.9-10.9); Carbon Dioxide 28.7 mmol/L (24-32.6); Estimated Creat Clear 33.8
[2016-10-13] MEDS: PANTOPRAZOLE SODIUM 20 MG TABLET.DR PO SCH (06:42)
[2016-10-13] MEDS: DOCUSATE SODIUM 100 MG CAPSULE PO SCH (08:21)
[2016-10-13] MEDS: ASPIRIN 81 MG TAB.CHEW PO SCH (08:21)
[2016-10-13] MEDS: FLUDROCORTISONE ACETATE 0.1 MG TABLET PO SCH (08:21)
[2016-10-13] MEDS: POTASSIUM CHLORIDE 20 MEQ TABLET.SA PO SCH ×2 (08:22→17:36)
[2016-10-13] MEDS: CYANOCOBALAMIN 1,000 MCG TABLET PO SCH (08:22)
[2016-10-13] MEDS: ESCITALOPRAM OXALATE 10 MG TAB PO SCH (08:22)
[2016-10-13] MEDS: MULTIVITAMINS 1 CAP CAPSULE PO SCH (08:22)
[2016-10-13] MEDS: LISINOPRIL 10 MG TABLET PO SCH (08:22)
[2016-10-13] MEDS: ENOXAPARIN SODIUM 40 MG/0.4 ML SYRG SC SCH (13:50)
--- NOTE | 2016-10-13 16:39 | PN ---
Subjective - Date and Time Seen Date: 10/13/16 Time: 16:36 Subjective Narrative: Patient seen and examined multiple times today. She denies any pre-syncopal episodes yet today. No new issues or concerns. Does not want to take anti- depressant. Objective - Review of Systems Generalized/Overall Review: Reports: Weakness, Fatigue EENTM: Reports: No Symptoms Reported Respiratory: Reports: No Symptoms Reported Cardiac: Reports: No Symptoms Reported Abdominal: Reports: No Symptoms Reported Genitourinary Symptoms: Reports: No Symptoms Reported Musculoskeletal Complaints: Reports: No Symptoms Reported Neurological: Reports: No Symptoms Reported Skin: Reports: No Symptoms Reported Endocrine: Reports: No Symptoms Reported Misc: All systems neg except as marked - Vitals Vitals: Last Vital Signs Temp 36.3 C L 10/13/16 15:10 Pulse 83 10/13/16 15:10 Resp 20 10/13/16 15:10 BP 156/56 10/13/16 15:10 Pulse Ox 95 10/13/16 15:10 - Abnormal Lab Findings Abnormal Lab Findings: Abnormal Lab Results 10/12/16 10/13/16 Range/Units 21:10 06:17 Sodium 143 H (132-142) mmol/L Plasma Sodium 144 H (130-142) mmol/L Potassium 2.6 L 3.0 L (3.4-4.6) mmol/L Random Glucose 133 H (70-110) mg/dL Calcium 7.8 L (7.9-10.9) mg/dL - Exam Constitutional: Present: Alert, Oriented x3, Cooperative, No distress, Elderly ENT Exam: Present: normal ENT inspection, moist mucous membranes Respiratory: Present: lungs clear, normal breath sounds, no respiratory distress , no accessory muscle use Cardiovascular/Chest: Present: regular rate, rhythm, no JVD, no murmur, edema - Trace Abdomen: Present: Normal bowel sounds, soft, nontender, nondistended Extremity: Present: normal inspection, no calf tenderness Skin Exam: Present: normal color, warm/dry Neurologic: Present: no motor/sensory deficits, alert, normal mood/affect, oriented x 3 Appearance: Present: appropriate appearance, appropriate insight, neat Eye contact: Present: cooperative, good eye contact, normal speech Thoughts: Present: normal thought pattern, no apparent hallucination Assessment/Plan Plan Narrative: IMPRESSION AND PLAN: Hypertensive Urgency -Decrease fludrocortisone to 0.1mg daily -Discontinue sodium chloride -Start Lisinopril 10mg daily -Hydralazine IV PRN SBP>180 or DBP>100mmHg -BP as well as orthostatic vitals improved on current medication regimen. Continue current meds and monitor overnight and if vitals remain stable, I will plan to discharge the patient home tomorrow. Pre-Syncope -Orthostatic vitals q8h while awake -Patient scheduled to see cardiology as an outpatient CHRONIC, STABLE MEDICAL CONDITIONS: Type 2 DM: Diet controlled. Recent A1c 6.6%. HLD: Diet controlled. GERD: Continue home PPI VTE Prophylaxis: Lovenox, compression stockings Code Status: Full Code Disposition: Continue to monitor BP closely over the next 24 hours with tentative plan to discharge patient home tomorrow (10.14) if BP is improved. - Problems/Diagnosis (1) Hypertensive urgency Problem: Acute (2) Pre-syncope Problem: Acute
[2016-10-13] MEDS: ACETAMINOPHEN 325 MG TABLET PO PRN (18:33)
[2016-10-14 06:20] LABS: Anion Gap 14.3 mmol/L (6.8-13.8); BUN/Creatinine Ratio 17.5 (9.0-21.6); Calcium * 7.9 mg/dL (7.9-10.9); Carbon Dioxide 26.5 mmol/L (24-32.6); Estimated Creat Clear 32.1; Potassium 3.8 mmol/L (3.4-4.6)
[2016-10-14] MEDS: PANTOPRAZOLE SODIUM 20 MG TABLET.DR PO SCH (06:35)
[2016-10-14] MEDS: ACETAMINOPHEN 325 MG TABLET PO PRN (08:47)
[2016-10-14] MEDS: ASPIRIN 81 MG TAB.CHEW PO SCH (08:48)
[2016-10-14] MEDS: FLUDROCORTISONE ACETATE 0.1 MG TABLET PO SCH (08:48)
[2016-10-14] MEDS: MULTIVITAMINS 1 CAP CAPSULE PO SCH (08:48)
[2016-10-14] MEDS: POTASSIUM CHLORIDE 20 MEQ TABLET.SA PO SCH ×2 (08:48→09:00)
[2016-10-14] MEDS: LISINOPRIL 10 MG TABLET PO SCH ×2 (08:48→20:46)
[2016-10-14] MEDS: CYANOCOBALAMIN 1,000 MCG TABLET PO SCH (08:48)
[2016-10-14] MEDS: DOCUSATE SODIUM 100 MG CAPSULE PO SCH (08:50)
--- NOTE | 2016-10-14 10:08 | PN ---
Subjective - Date and Time Seen Date: 10/14/16 Time: 09:53 Subjective Narrative: Mrs. Nguyen continues to have labile BP. This morning, SBP was >200 mHg on exam. She becomes severely orthostatic. She complains of bitemporal headaches and impaired vision. She is lightheaded. No N/V. Appetite is good. No chest pain or shortness of breath today. Objective Objective Narrative: Mrs. Nguyen complains of lightheadedness, "unfocused" vision, and bitemporal headaches. - Vitals Vitals: Last Vital Signs Temp 36.6 C 10/14/16 06:58 Pulse 75 10/14/16 08:48 Resp 18 10/14/16 06:58 BP 132/66 10/14/16 08:48 Pulse Ox 96 10/14/16 06:58 - Abnormal Lab Findings Abnormal Lab Findings: Abnormal Lab Results 10/14/16 Range/Units 05:50 Sodium 144 H (132-142) mmol/L Plasma Sodium 144 H (130-142) mmol/L Chloride 107 H (97-106) mmol/L Anion Gap 14.3 H (6.8-13.8) mmol/L Est GFR (Non-Af Amer) 59 L (60-130) mL/min Random Glucose 125 H (70-110) mg/dL - EKG/Xray Findings EKG: NSR - Exam Constitutional: Present: Alert, Oriented x3, Cooperative, No distress ENT Exam: Present: hearing grossly normal Neck: Present: non-tender, full range of motion, normal inspection Respiratory: Present: chest non-tender, lungs clear, normal breath sounds Cardiovascular/Chest: Present: normal peripheral pulses, regular rate, rhythm, no chest tenderness, no edema Abdomen: Present: Normal bowel sounds, soft, nontender Extremity: Present: normal range of motion, non-tender, normal inspection, no pedal edema Skin Exam: Present: normal color, warm/dry Lymphatic: Present: no adenopathy Appearance: Present: appropriate appearance, appropriate insight, neat Eye contact: Present: cooperative, good eye contact Thoughts: Present: normal thought pattern Assessment/Plan - Problems/Diagnosis (1) Hypertensive urgency Problem: Acute Narrative: Blood pressure continues to be labile, and Mrs. Nguyen is symptomatic with lightheadedness, visual disturbance and headache. Continue lisinopril 10 mg po daily. Differential diagnoses include renal artery stenosis. Consider pheochromocytoma although she is not tachycardic. Check 24 hour urine for metanephrines and normetanephrines. (2) Orthostatic hypotension Problem: Acute
[2016-10-14] MEDS: ENOXAPARIN SODIUM 40 MG/0.4 ML SYRG SC SCH (14:59)
[2016-10-15 07:15] LABS: Anion Gap 12.6 mmol/L (6.8-13.8); BUN/Creatinine Ratio 16.3 (9.0-21.6); Calcium * 7.8 mg/dL (7.9-10.9); Carbon Dioxide 28.1 mmol/L (24-32.6); Estimated Creat Clear 36.2; Potassium 3.7 mmol/L (3.4-4.6)
[2016-10-15] MEDS: PANTOPRAZOLE SODIUM 20 MG TABLET.DR PO SCH (08:22)
[2016-10-15] MEDS: DOCUSATE SODIUM 100 MG CAPSULE PO SCH (08:23)
[2016-10-15] MEDS: CYANOCOBALAMIN 1,000 MCG TABLET PO SCH (08:23)
[2016-10-15] MEDS: LISINOPRIL 10 MG TABLET PO SCH ×2 (08:23→20:58)
[2016-10-15] MEDS: FLUDROCORTISONE ACETATE 0.1 MG TABLET PO SCH (08:23)
[2016-10-15] MEDS: ASPIRIN 81 MG TAB.CHEW PO SCH (08:23)
[2016-10-15] MEDS: MULTIVITAMINS 1 CAP CAPSULE PO SCH (08:23)
[2016-10-15] MEDS: POTASSIUM CHLORIDE 20 MEQ TABLET.SA PO SCH (08:23)
[2016-10-15] MEDS: ENOXAPARIN SODIUM 40 MG/0.4 ML SYRG SC SCH (14:02)
[2016-10-15] MEDS: ACETAMINOPHEN 325 MG TABLET PO PRN (15:13)
[2016-10-16 06:32] LABS: Anion Gap 13.8 mmol/L (6.8-13.8); BUN/Creatinine Ratio 17.8 (9.0-21.6); Carbon Dioxide 27.7 mmol/L (24-32.6); Estimated Creat Clear 34.6; Potassium 3.5 mmol/L (3.4-4.6)
[2016-10-16] MEDS: PANTOPRAZOLE SODIUM 20 MG TABLET.DR PO SCH (09:37)
[2016-10-16] MEDS: FLUDROCORTISONE ACETATE 0.1 MG TABLET PO SCH (09:37)
[2016-10-16] MEDS: MULTIVITAMINS 1 CAP CAPSULE PO SCH (09:37)
[2016-10-16] MEDS: LISINOPRIL 10 MG TABLET PO SCH ×2 (09:38→20:34)
[2016-10-16] MEDS: ASPIRIN 81 MG TAB.CHEW PO SCH (09:39)
[2016-10-16] MEDS: CYANOCOBALAMIN 1,000 MCG TABLET PO SCH (09:39)
[2016-10-16] MEDS: POTASSIUM CHLORIDE 20 MEQ TABLET.SA PO SCH (09:39)
[2016-10-16] MEDS: DOCUSATE SODIUM 100 MG CAPSULE PO SCH (09:39)
[2016-10-16] MEDS: ENOXAPARIN SODIUM 40 MG/0.4 ML SYRG SC SCH (14:37)
[2016-10-16] MEDS: hydrALAZINE HCL 20 MG/ML VIAL IV PRN (15:10)
[2016-10-17 06:09] LABS: Anion Gap 13.6 mmol/L (6.8-13.8); BUN/Creatinine Ratio 17.9 (9.0-21.6); Calcium * 7.9 mg/dL (7.9-10.9); Carbon Dioxide 26.1 mmol/L (24-32.6); Estimated Creat Clear 32.7; Potassium 3.7 mmol/L (3.4-4.6)
[2016-10-17] MEDS: PANTOPRAZOLE SODIUM 20 MG TABLET.DR PO SCH (07:27)
[2016-10-17] MEDS: FLUDROCORTISONE ACETATE 0.1 MG TABLET PO SCH ×2 (08:52→20:07)
[2016-10-17] MEDS: ASPIRIN 81 MG TAB.CHEW PO SCH (08:53)
[2016-10-17] MEDS: DOCUSATE SODIUM 100 MG CAPSULE PO SCH (08:53)
[2016-10-17] MEDS: CYANOCOBALAMIN 1,000 MCG TABLET PO SCH (08:53)
[2016-10-17] MEDS: LISINOPRIL 10 MG TABLET PO SCH ×2 (08:53→20:21)
[2016-10-17] MEDS: MULTIVITAMINS 1 CAP CAPSULE PO SCH (08:53)
[2016-10-17] MEDS: POTASSIUM CHLORIDE 20 MEQ TABLET.SA PO SCH (08:53)
[2016-10-17] MEDS: hydrALAZINE HCL 20 MG/ML VIAL IV PRN (10:12)
--- NOTE | 2016-10-17 10:28 | PN ---
Subjective - Date and Time Seen Date: 10/15/16 Time: 11:45 Subjective Narrative: Patient seen and examined at beside. She denies any new issues or concerns. She had an episode of lightheadedness which occurred shortly after getting out of bed. She did not fall and there was no LOC. Objective - Review of Systems Generalized/Overall Review: Reports: Weakness, Fatigue EENTM: Reports: No Symptoms Reported Respiratory: Reports: No Symptoms Reported Cardiac: Reports: Other - Orthostatic symptoms Abdominal: Reports: No Symptoms Reported Genitourinary Symptoms: Reports: No Symptoms Reported Musculoskeletal Complaints: Reports: No Symptoms Reported Neurological: Reports: No Symptoms Reported Skin: Reports: No Symptoms Reported Endocrine: Reports: No Symptoms Reported Misc: All systems neg except as marked - Vitals Vitals: Last Vital Signs Temp 36.6 C 10/17/16 08:23 Pulse 74 10/17/16 08:53 Resp 18 10/17/16 08:23 BP 182/94 10/17/16 08:53 Pulse Ox 98 10/17/16 08:23 - Abnormal Lab Findings Abnormal Lab Findings: Abnormal Lab Results 10/17/16 Range/Units 05:45 Sodium 143 H (132-142) mmol/L Plasma Sodium 143 H (130-142) mmol/L Chloride 107 H (97-106) mmol/L Random Glucose 128 H (70-110) mg/dL - Exam Constitutional: Present: Alert, Oriented x3, Cooperative, No distress, Elderly ENT Exam: Present: hearing grossly normal, moist mucous membranes Respiratory: Present: lungs clear, normal breath sounds, no respiratory distress , no accessory muscle use Cardiovascular/Chest: Present: regular rate, rhythm, no JVD, edema - Trace Abdomen: Present: Normal bowel sounds, soft, nontender, nondistended Extremity: Present: normal inspection, no calf tenderness, pedal edema - trace Skin Exam: Present: normal color, warm/dry Neurologic: Present: no motor/sensory deficits, alert, normal mood/affect, oriented x 3 Appearance: Present: appropriate appearance, appropriate insight, neat Eye contact: Present: cooperative, good eye contact, normal speech Thoughts: Present: normal thought pattern, no apparent hallucination Assessment/Plan Plan Narrative: IMPRESSION AND PLAN: Hypertensive Urgency -Continue decreased dose of fludrocortisone 0.1mg daily -Increase Lisinopril to 10mg PO BID -Hydralazine IV PRN SBP>180 or DBP>100mmHg -Patient continues to have elevated supine BP readings with marked orthostatic hypotension upon standing. Continue to collect 24 hour urine. Pre-Syncope -Orthostatic vitals q8h while awake -Patient scheduled to see cardiology as an outpatient -Vestibular rehab by PT on Monday (10.17) CHRONIC, STABLE MEDICAL CONDITIONS: Type 2 DM: Diet controlled. Recent A1c 6.6%. HLD: Diet controlled. GERD: Continue home PPI VTE Prophylaxis: Lovenox, compression stockings Code Status: Full Code - Problems/Diagnosis (1) Hypertensive urgency Problem: Acute (2) Pre-syncope Problem: Acute
--- NOTE | 2016-10-17 10:37 | PN ---
Subjective - Date and Time Seen Date: 10/16/16 Time: 11:00 Subjective Narrative: Patient seen and examined at [facility]. She admits to an episode of lightheadedness during the night when she got up to go to the bathroom. She completed her 24 hour urine collection yesterday. Overall, she does admit that she feels better than when she first was admitted-her headache has resolved and she is no longer having issues with focusing and the number of pre-syncopal episodes has decreased. Objective - Review of Systems Generalized/Overall Review: Reports: Fatigue EENTM: Reports: No Symptoms Reported Respiratory: Reports: No Symptoms Reported Cardiac: Reports: Other - Orthostatic symptoms of lightheadedness Abdominal: Reports: No Symptoms Reported Genitourinary Symptoms: Reports: No Symptoms Reported Musculoskeletal Complaints: Reports: No Symptoms Reported Neurological: Reports: No Symptoms Reported Skin: Reports: No Symptoms Reported Endocrine: Reports: No Symptoms Reported Misc: All systems neg except as marked - Vitals Vitals: Last Vital Signs Temp 36.6 C 10/17/16 08:23 Pulse 74 10/17/16 08:53 Resp 18 10/17/16 08:23 BP 182/94 10/17/16 08:53 Pulse Ox 98 10/17/16 08:23 - Abnormal Lab Findings Abnormal Lab Findings: Abnormal Lab Results 10/17/16 Range/Units 05:45 Sodium 143 H (132-142) mmol/L Plasma Sodium 143 H (130-142) mmol/L Chloride 107 H (97-106) mmol/L Random Glucose 128 H (70-110) mg/dL - Exam Constitutional: Present: Alert, Oriented x3, Cooperative, No distress, Elderly ENT Exam: Present: hearing grossly normal, moist mucous membranes Respiratory: Present: lungs clear, normal breath sounds, no respiratory distress , no accessory muscle use Cardiovascular/Chest: Present: regular rate, rhythm, edema - trace Abdomen: Present: soft, nontender, nondistended Extremity: Present: normal inspection, no calf tenderness Skin Exam: Present: warm/dry Neurologic: Present: no motor/sensory deficits, alert, normal mood/affect, oriented x 3 Appearance: Present: appropriate appearance, appropriate insight, neat Eye contact: Present: cooperative, good eye contact, normal speech Thoughts: Present: normal thought pattern, no apparent hallucination Assessment/Plan Plan Narrative: IMPRESSION AND PLAN: Hypertensive Urgency -Change dose of fludrocortisone to 0.05mg BID -Continue Lisinopril 10mg PO BID -Hydralazine IV PRN SBP>180 or DBP>100mmHg -Patient continues to have elevated supine BP readings with marked orthostatic hypotension upon standing. 24 hour urine collection completed yesterday. Await results of urine metanephrines. Pre-Syncope -Orthostatic vitals q8h while awake -Patient scheduled to see cardiology as an outpatient -Vestibular rehab by PT tomorrow CHRONIC, STABLE MEDICAL CONDITIONS: Type 2 DM: Diet controlled. Recent A1c 6.6%. HLD: Diet controlled. GERD: Continue home PPI VTE Prophylaxis: Lovenox, compression stockings Code Status: Full Code - Problems/Diagnosis (1) Hypertensive urgency Problem: Acute (2) Pre-syncope Problem: Acute
--- NOTE | 2016-10-17 10:44 | PN ---
Subjective - Date and Time Seen Date: 10/17/16 Time: 10:40 Subjective Narrative: Patient seen and examined at beside. She has not had any episodes of lightheadedness this AM and states that she is feeling pretty well. Objective - Review of Systems Generalized/Overall Review: Reports: Fatigue EENTM: Reports: No Symptoms Reported Respiratory: Reports: No Symptoms Reported Cardiac: Reports: No Symptoms Reported Abdominal: Reports: No Symptoms Reported Genitourinary Symptoms: Reports: No Symptoms Reported Musculoskeletal Complaints: Reports: No Symptoms Reported Neurological: Reports: No Symptoms Reported Skin: Reports: No Symptoms Reported Endocrine: Reports: No Symptoms Reported Misc: All systems neg except as marked - Vitals Vitals: Last Vital Signs Temp 36.7 C 10/17/16 10:39 Pulse 81 10/17/16 10:39 Resp 18 10/17/16 10:39 BP 194/63 10/17/16 10:39 Pulse Ox 94 10/17/16 10:39 - Abnormal Lab Findings Abnormal Lab Findings: Abnormal Lab Results 10/17/16 Range/Units 05:45 Sodium 143 H (132-142) mmol/L Plasma Sodium 143 H (130-142) mmol/L Chloride 107 H (97-106) mmol/L Random Glucose 128 H (70-110) mg/dL - Exam Constitutional: Present: Alert, Oriented x3, Cooperative, No distress, Elderly ENT Exam: Present: hearing grossly normal, moist mucous membranes Respiratory: Present: lungs clear, normal breath sounds, no respiratory distress , no accessory muscle use Cardiovascular/Chest: Present: regular rate, rhythm, edema - trace Abdomen: Present: Normal bowel sounds, soft, nontender, nondistended Extremity: Present: normal inspection, no calf tenderness Skin Exam: Present: warm/dry Neurologic: Present: no motor/sensory deficits, alert, normal mood/affect, oriented x 3 Appearance: Present: appropriate appearance, appropriate insight, neat Eye contact: Present: cooperative, good eye contact, normal speech Thoughts: Present: normal thought pattern, no apparent hallucination Assessment/Plan Plan Narrative: IMPRESSION AND PLAN: Hypertensive Urgency -Continue adjusted dose of fludrocortisone 0.05mg BID -Continue Lisinopril 10mg PO BID -Hydralazine IV PRN SBP>180 or DBP>100mmHg -Patient continues to have elevated supine BP readings with marked orthostatic hypotension upon standing. -I will consult Dr. Solis with cardiology to see the patient tomorrow to see if she has other recommendations for further work-up and/or medications. Pre-Syncope -Orthostatic vitals q8h while awake -Cardiology to see patient tomorrow in the hospital -Vestibular rehab by PT tomorrow CHRONIC, STABLE MEDICAL CONDITIONS: Type 2 DM: Diet controlled. Recent A1c 6.6%. HLD: Diet controlled. GERD: Continue home PPI VTE Prophylaxis: Lovenox, compression stockings Code Status: Full Code Disposition: Await cardiology consult tomorrow. Hopefully patient can be discharged home within the next 1-2 days. - Problems/Diagnosis (1) Hypertensive urgency Problem: Acute (2) Pre-syncope Problem: Acute
[2016-10-17] MEDS: ENOXAPARIN SODIUM 40 MG/0.4 ML SYRG SC SCH (12:50)
[2016-10-18] MEDS ORDERED: hydrALAZINE HCL 20 MG/ML VIAL IV ONE (03:00)
[2016-10-18] MEDS: PANTOPRAZOLE SODIUM 20 MG TABLET.DR PO SCH (07:21)
[2016-10-18] MEDS: MULTIVITAMINS 1 CAP CAPSULE PO SCH (09:24)
[2016-10-18] MEDS: DOCUSATE SODIUM 100 MG CAPSULE PO SCH (09:24)
[2016-10-18] MEDS: ASPIRIN 81 MG TAB.CHEW PO SCH (09:24)
[2016-10-18] MEDS: POTASSIUM CHLORIDE 20 MEQ TABLET.SA PO SCH (09:24)
[2016-10-18] MEDS: CYANOCOBALAMIN 1,000 MCG TABLET PO SCH (09:24)
[2016-10-18] MEDS: FLUDROCORTISONE ACETATE 0.1 MG TABLET PO SCH (09:24)
[2016-10-18] MEDS: LISINOPRIL 10 MG TABLET PO SCH ×2 (09:25→20:32)
[2016-10-18] MEDS: ENOXAPARIN SODIUM 40 MG/0.4 ML SYRG SC SCH (12:36)
--- NOTE | 2016-10-18 16:28 | PN ---
Subjective - Date and Time Seen Date: 10/18/16 Time: 10:35 Subjective Narrative: 81 year old female admitted with pre-syncope and hypertensive urgency. dx with orthostatic hypotension. overnight bp drops to 77/45 upon standing. currently on florinef 0.05 mg po bid and lisinoprio 10 mg po bid with iv hydralazine as needed. currently collecting a 24 hour urine for urine metham. currently wearing knee high kimberly hose, on a low salt diet. cardiology to see patient today. still c/o dizziness at times when standing - correlates to times of significant hypotension. Objective - Review of Systems Generalized/Overall Review: Reports: Weakness EENTM: Reports: No Symptoms Reported Respiratory: Reports: No Symptoms Reported Cardiac: Reports: No Symptoms Reported Abdominal: Reports: No Symptoms Reported Genitourinary Symptoms: Reports: No Symptoms Reported Musculoskeletal Complaints: Reports: No Symptoms Reported Neurological: Reports: No Symptoms Reported Skin: Reports: No Symptoms Reported Endocrine: Reports: No Symptoms Reported Misc: All systems neg except as marked - Vitals Vitals: Last Vital Signs Temp 36.6 C 10/18/16 10:24 Pulse 72 10/18/16 10:24 Resp 18 10/18/16 10:24 BP 180/67 10/18/16 10:24 Pulse Ox 98 10/18/16 10:24 Selected Entries 10/17/16 10/18/16 10/18/16 20:22 02:39 02:59 Temperature Pulse Rate 86 63 63 Respiratory Rate Respiratory Depth Blood Pressure 77/45 89/53 170/51 Blood Pressure Mean Blood Pressure Standing Standing Supine Position O2 Sat by Pulse Oximetry Oxygen Delivery Method 10/18/16 10/18/16 10:23 10:24 Temperature 36.6 C Pulse Rate 79 72 Respiratory 18 Rate Respiratory Normal Depth Blood Pressure 96/49 180/67 Blood Pressure 104 Mean Blood Pressure Standing Supine Position O2 Sat by Pulse 98 Oximetry Oxygen Delivery Room Air Method - Exam Constitutional: Present: Alert, Oriented x3, Cooperative, No distress, Elderly ENT Exam: Present: hearing grossly normal Neck: Present: full range of motion, supple Breasts: Present: Exam deferred Respiratory: Present: chest non-tender, lungs clear, normal breath sounds Cardiovascular/Chest: Present: normal peripheral pulses, regular rate, rhythm, no chest tenderness, no edema, no gallop, no murmur Abdomen: Present: Normal bowel sounds, soft, nontender, nondistended, no rebound tenderness /Rectal: Present: Exam deferred Extremity: Present: normal range of motion, non-tender, normal inspection, no calf tenderness Skin Exam: Present: normal color, warm/dry, no cyanosis Neurologic: Present: alert, oriented x 3 Assessment/Plan Plan Narrative: Cardiology consult reviewed. stop florinef. continue lisinopril, hold for sbp < 130. take bp standing only. continue vestibular rehab by PT. change diet to consistent carb with liberal salt as desired. check UPEP and SPEP. thigh high kimberly hose ordered and reason for change explained to pt. may need ACTH stimulation test outpatient. watch standing bp. likely home in the next 1-2 days if standing sbp stabilizes and pt is without standing dizziness. VTE: lovenox, compression stockings code status: full code - Problems/Diagnosis (1) Hypertensive urgency Problem: Acute (2) Pre-syncope Problem: Acute (3) Orthostatic hypotension Problem: Acute
[2016-10-19] MEDS: PANTOPRAZOLE SODIUM 20 MG TABLET.DR PO SCH (07:03)
[2016-10-19] MEDS: POTASSIUM CHLORIDE 20 MEQ TABLET.SA PO SCH (09:57)
[2016-10-19] MEDS: DOCUSATE SODIUM 100 MG CAPSULE PO SCH (09:57)
[2016-10-19] MEDS: CYANOCOBALAMIN 1,000 MCG TABLET PO SCH (09:57)
[2016-10-19] MEDS: ASPIRIN 81 MG TAB.CHEW PO SCH (09:57)
[2016-10-19] MEDS: MULTIVITAMINS 1 CAP CAPSULE PO SCH (09:57)
[2016-10-19] MEDS: LISINOPRIL 10 MG TABLET PO SCH ×2 (10:02)
[2016-10-19] MEDS ORDERED: NORMAL SALINE 1,000 ML IV ONE (10:29)
--- NOTE | 2016-10-19 11:51 | PN ---
Subjective - Date and Time Seen Date: 10/19/16 Time: 08:45 Subjective Narrative: 81 year old female admitted with pre-syncope and hypertensive urgency. dx with orthostatic hypotension. overnight bp drops to 77/45 upon standing. currently on florinef 0.05 mg po bid and lisinoprio 10 mg po bid with iv hydralazine as needed. currently collecting a 24 hour urine for urine metham. currently wearing knee high kimberly hose, on a low salt diet. cardiology to see patient today. still c/o dizziness at times when standing - correlates to times of significant hypotension. on 10/19/16, florinef was d/c yesterday. this am, standing sbp was 85 and pt dizzy. not ready for discharge. Objective - Review of Systems Generalized/Overall Review: Reports: Weakness EENTM: Reports: No Symptoms Reported Respiratory: Reports: No Symptoms Reported Cardiac: Reports: No Symptoms Reported Abdominal: Reports: No Symptoms Reported Genitourinary Symptoms: Reports: No Symptoms Reported Musculoskeletal Complaints: Reports: No Symptoms Reported Neurological: Reports: Other - dizziness Skin: Reports: No Symptoms Reported Endocrine: Reports: No Symptoms Reported Misc: All systems neg except as marked - Vitals Vitals: Last Vital Signs Temp 36.4 C L 10/19/16 07:22 Pulse 78 10/19/16 10:02 Resp 20 10/19/16 07:22 BP 87/48 10/19/16 10:02 Pulse Ox 97 10/19/16 07:22 - Exam Constitutional: Present: Alert, Oriented x3, Cooperative, No distress ENT Exam: Present: hearing grossly normal Neck: Present: full range of motion, supple Breasts: Present: Exam deferred Respiratory: Present: chest non-tender, lungs clear, normal breath sounds, no respiratory distress, no accessory muscle use Cardiovascular/Chest: Present: normal peripheral pulses, regular rate, rhythm, no murmur Abdomen: Present: Normal bowel sounds, soft, nontender, nondistended /Rectal: Present: Exam deferred Extremity: Present: normal range of motion, non-tender, normal inspection Skin Exam: Present: normal color, warm/dry, no cyanosis Neurologic: Present: alert, oriented x 3 Assessment/Plan Plan Narrative: bp dropped this am with standing. d/c pm dose of lisinopril. will give a little iv fluid as pt's intake has not been the best. continue thigh high kimberly hose. mobilize pt. monitor blood pressures. reassess in the am. - Problems/Diagnosis (1) Hypertensive urgency Problem: Acute (2) Pre-syncope Problem: Acute (3) Orthostatic hypotension Problem: Acute
[2016-10-19] MEDS: ENOXAPARIN SODIUM 40 MG/0.4 ML SYRG SC SCH (13:28)
[2016-10-19] MEDS: ACETAMINOPHEN 325 MG TABLET PO PRN (14:04)
[2016-10-20] MEDS: PANTOPRAZOLE SODIUM 20 MG TABLET.DR PO SCH (07:48)
[2016-10-20 07:56] VITALS: BP 130/53
--- NOTE | 2016-10-20 09:01 | DS ---
(1) Hypertensive urgency Problem: Resolved (2) Pre-syncope Problem: Resolved (3) Orthostatic hypotension Problem: Chronic Description of Stay: Patient was here at [facility] for physical therapy and when she walked in to the rehab area and went up to the check-in counter, she felt lightheaded, dizzy and like she was going to pass out. Patient'ss BP was checked in physical therapy and was 214/100 1st reading, 184/94 2nd reading, and 184/97 3rd reading. My RN, Racheal, went down to physical therapy and transferred patient by wheelchair up to the Internal Medicine clinic to be evaluated. My RN rechecked patient's BP in office which was 192/106mmHg with a pulse of 80bpm. Patient reports she hasn' t taken her meds this morning but admits she hasn't been feeling well for a couple of days. She has been lightheaded, unable to focus, vertigo, and headache. Patient admitted from clinic for observation for hypertensive urgency and near syncope. Patient does have a long standing history of similar episodes. Pt continued to have severe orthostatic hypotension during admission. cardiology was consulted who gave several recommendations (see their note) including thigh high mary hose, liberal salt diet, and only treating standing blood pressures. pt's medications were adjusted and on the day of discharge pt was able to ambulate without dizziness. Patient discharged in stable condition. Procedures Performed: none Discharge Disposition: Home self care Disposition: Home self-care Condition: Stable Discharge Activity: Activity as tolerated Discharge Diet: Consistent carbs, Other - liberal salt diet Referrals: Kathi Carlson DO [Primary Care Provider] - Consultation Done:: Dr Solis with cardiology Problem Oriented Discharge Instructions to Patient/Family: Orthostatic Hypotension Additional Patient Instructions (free text): Follow up with PT outpatient on 10/25 at 10:45am. Wear thigh high MARY hose daily. Take blood pressure standing up each morning. Only take am dose of lisinopril if systolic blood pressure (top number) is 130 or higher. Follow a consistent carb diet with liberal salt. Follow up with Dr. Carlson on October 31 at 9:30. Prescriptions (Any new or edited meds): Potassium Chloride [K-Dur] 20 meq PO DAILY #30 tablet.sa Complete Home Medications List: Complete Home Medication List: Aspirin [Aspirin Chewable] 81 mg PO DAILY 03/18/15 Cyanocobalamin [Vitamin B-12] 1,000 mcg PO DAILY 03/18/15 Docusate Sodium [Doc-Q-Lace] 100 mg PO DAILY 03/18/15 Multivitamin [One Daily Essential] 1 each PO DAILY 08/24/16 Omeprazole [Prilosec] 20 mg PO DAILY 08/24/16 Potassium Chloride [K-Dur] 20 meq PO DAILY #30 tablet.sa 10/20/16 Escitalopram Oxalate [Lexapro] 10 mg PO DAILY 11/01/16 Fludrocortisone Acetate 0.1 mg PO DAILY 11/01/16 Sodium Chloride 1 gm PO TID 11/01/16 Amb Orders for Discharge: Basic Metabolic Panel Time Frame: 1 Week, Location: Determined By Patient
[2016-10-20] MEDS: LISINOPRIL 10 MG TABLET PO SCH (09:45)
[2016-10-20] MEDS: POTASSIUM CHLORIDE 20 MEQ TABLET.SA PO SCH (09:45)
[2016-10-20] MEDS: ASPIRIN 81 MG TAB.CHEW PO SCH (09:45)
[2016-10-20] MEDS: MULTIVITAMINS 1 CAP CAPSULE PO SCH (09:45)
[2016-10-20] MEDS: DOCUSATE SODIUM 100 MG CAPSULE PO SCH (09:45)
[2016-10-20] MEDS: CYANOCOBALAMIN 1,000 MCG TABLET PO SCH (09:46)
[2016-10-20 21:34] LABS: Ab Band 1 DNR g/dL (NONE DETECTED); Ab Band 2 DNR g/dL (NONE DETECTED); Ab Band 3 DNR g/dL (NONE DETECTED); Alpha 1 Globulins 0.3 g/dL (0.2-0.3); Alpha 2 Globulins 0.7 g/dL (0.5-0.9); Beta 1 Globulins 0.4 g/dL (0.4-0.6); Gamma Globulins 0.8 g/dL (0.8-1.7); SEP Albumin 3.2 g/dL (3.8-4.8)
[2016-10-21 14:54] LABS: Total Volume 1750 mL
[2016-10-21 15:05] LABS: Metanephrines Total 24 Hr 222 mcg/24 h (224-832)
[2016-10-21 17:52] LABS: Abnormal Protein Band 1 DNR mg/dL (NONE DETECTED); Abnormal Protein Band 2 DNR mg/dL (NONE DETECTED); Abnormal Protein Band 3 DNR mg/dL (NONE DETECTED); Alpha-1-Globulins 0 %; Alpha-2-Globulins 0 %; Protein/Creatinine Ratio 96 mg/g creat (21-161)
[2016-10-21 21:33] LABS: Protein Total, Random Urine 10 mg/dL (5-24)
== END 2016-10-20 11:00 | disposition home or self-care (01) | DRG 305 ==
LOC: MS 08:51 → INTOOBSV 10-14 08:51 → OBSVTOIN 10-14 08:51
PROVIDERS: ADMIT Internal Medicine; ATTEND Internal Medicine
DX: I16.0 Hypertensive urgency (principal); I95.1 Orthostatic hypotension; E11.9 Type 2 diabetes mellitus without complications; E78.5 Hyperlipidemia, unspecified; Z85.43 Personal history of malignant neoplasm of ovary; Z79.82 Long term (current) use of aspirin
CPT/HCPCS: 36415; 80048; 83835; 84132; 84165; 84166; 85027; 97162; G0378; G0379

== ENCOUNTER 2016-11-01 15:17 | Inpatient (IN) | payer MEDICARE, OTHER ==
--- OUTSIDE RECORDS SUMMARY | 2016-11-01 15:23 | XMS REPORT | Continuity of Care Document ---
:1935 Author Organization [facility] ([facility]) Address [address] [place] [address] Phone [phone] Care Team Providers Name Role Phone Kathi Carlson Primary Care Provider [phone] Source Comments This disclosure is being made pursuant to the Care Everywhere program, applicable federal and state laws, and may not contain all informaitonavailable regarding this patient.[facility] ([facility]) Active Allergies and Adverse Reactions Allergen Noted Date Severity Reactions Comments Azithromycin 02/06/2013 Urticaria (Hives),Rash Erythromycin 02/06/2013 Nausea & Vomiting Current Medications Prescription Sig. Disp. Refills Start Date End Date Status aspirin 81 mg tablet take 81 mg by Active mouth daily. docusate (STOOL take 100 mg by Active SOFTENER) 100 mg mouth 2 times capsule daily. OMEPRAZOLE MAGNESIUM take by Active (PRILOSEC OTC PO) mouth. atorvastatin (LIPITOR) Take 10 mg by Active 10 mg tablet mouth every evening. TRAMADOL 50 mg tablet 08/14/2013 Active ALPRAZolam 0.25 mg Take 0.25 mg Active tablet by mouth at bedtime as needed. lisinopril 10 mg Take 10 mg by Active tablet mouth 2 times daily. fludrocortisone 0.1 mg Take 1 tablet 11 10/18/2016 Active tablet (0.1 mg total) by mouth daily. glimepiride (AMARYL) 1 Take 1 mg by 10/18/2016 Discontinued mg tablet mouth Every morning. ACETAMINOPHEN (TYLENOL Take 650 mg by 10/18/2016 Discontinued PO) mouth 2 times daily. oxyCODONE-acetaminophe Take 1 Tab by 30 Tab 0 08/29/2013 10/18/2016 Discontinued n 5-325 mg per tablet mouth every 6 hours as needed for Pain. Indications: PAIN nabumetone 750 mg Take 750 mg by 10/18/2016 Discontinued tablet mouth 2 times daily. estrogens, conjugated Insert 3 times 30 g 11 10/29/2015 10/18/2016 Discontinued (PREMARIN) 0.625 a week for one mg/gram vaginal cream week, then 2 times a week for one week, then once weekly for a month. 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 Tumor Board recommendations were for six cycles of Taxol and carboplatin. Six cycles were completed on 05/05/06. Most Recent Encounters Date Type Specialty Providers Description 10/27/2016 Office Visit Heart and Vascular Carolyne Solis MD Chief Comp: Patient Reported Reason For Visit 10/18/2016 Office Visit [facility] V[facility] Carolyne Solis MD Dx: Orthostatic hypotension (Primary Dx) Immunizations Name Dates Previously Given Next Due Influenza, unspecified 05/05/2006 Pneumococcal, unspecified 08/04/2006 Social History Tobacco Use Types Packs/Day Years Used Date Never Smoker Smokeless Tobacco: Never Used Alcohol Use Drinks/Week oz/Week Comments Yes rarely Last Filed Vital Signs Vital Sign Reading Time Taken Blood Pressure 140/60 10/18/2016 11:19 AM CDT Pulse 80 10/18/2016 11:19 AM CDT Temperature 36.4 C (97.5 F) 10/29/2015 3:09 PM CDT Respiratory Rate 16 09/23/2015 10:15 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
--- NOTE | 2016-11-01 15:36 | HP ---
Chief Complaint - Chief Complaint Date of Service: 11/01/16 Time of Service: 15:32 Chief Complaint: Multiple syncopal episodes History of Present Illness: The patient called my office today to let us know that she had 3 episodes today where she completely passed out; 1 episode at the bank and 2 more episodes at home. The patient was brought to my office by her granddaughter and she will be directly admitted to inpatient. The patient has a long standing history of orthostatic hypotension with pre-syncope and has been hospitalized recently for adjustment in medications. During her last admission, fludrocortisone was discontinued. However, her symptoms have only gotten worse since this medication was stopped. She has had worsening orthostatic hypotension with a drop in SBP over 100 mmHg when going from supine to standing. The patient will be admitted inpatient for further evaluation and medication adjustment for her severely uncontrolled orthostatic hypotension. - Patient's Past Medical History Patient History - Medical: Diabetes Type 2, Depression, GERD, Osteoarthritis Patient History - Cardiac/Respiratory: Hyperlipidemia Patient History - Cancer: Chemotherapy history, Ovarian Patient History - Surgical Procedures: Cataracts, Colonoscopy, Hysterectomy, Other Patient History - Other: Immunosuppresive Tx >3mo - Family History Brother Family History - Medical: Family History - Cardiac/Respiratory: Myocardial Infarction Father Family History - Medical: Mother Family History - Medical: , Diabetes Type 2 Insulin Dependent Sister Family History - Cardiac/Respiratory: Myocardial Infarction - Social History Living Situations: alone Abuse History: No History of abuse Psych History: Hx of Depression Does anyone smoke in the home?: No Smoking Status: Never smoker Have you smoked in the past 12 months: No Do you dip or chew tobacco: No Patient requests Smoking Cessation Consult: No Initiate information on Smoking Cessation: No Alcohol Use: none Drug Use: none Review Of Systems (GEN) - Review of Systems Generalized/Overall Review: Present: Weakness. Absent: Chills, Fever EENTM: Present: No Symptoms Reported Respiratory: Present: No Symptoms Reported Cardiac: Present: Syncope. Absent: Chest Pain, Palpitations Abdominal: Present: No Symptoms Reported Genitourinary: Present: No Symptoms Reported Musculoskeletal: Present: No Symptoms Reported Neurological: Present: No Symptoms Reported Skin: Present: No Symptoms Reported Endocrine: Present: No Symptoms Reported Misc: All systems neg except as marked Allergies/Adverse Reactions: Allergies Allergy/AdvReac Type Severity Reaction Status Date / Time azithromycin [From Zithromax] Allergy Mild Hives Verified 08/24/16 10:43 citalopram Allergy Verified 10/26/16 13:10 erythromycin base AdvReac Mild NAUSEA, Verified 08/24/16 10:43 [Erythromycin Base] VOMITING Home Medications: HOME MEDICATIONS Aspirin [Aspirin Chewable] 81 mg PO DAILY 03/18/15 [Last Taken 11/01/16] Cyanocobalamin [Vitamin B-12] 1,000 mcg PO DAILY 03/18/15 [Last Taken 11/01/16] Docusate Sodium [Doc-Q-Lace] 100 mg PO DAILY 03/18/15 [Last Taken 11/01/16] Multivitamin [One Daily Essential] 1 each PO DAILY 08/24/16 [Last Taken 11/01/16 ] Omeprazole [Prilosec] 20 mg PO DAILY 08/24/16 [Last Taken 11/01/16] Potassium Chloride [K-Dur] 20 meq PO DAILY #30 tablet.sa 10/20/16 [Last Taken ] Escitalopram Oxalate [Lexapro] 10 mg PO DAILY 11/01/16 [Last Taken 11/01/16] Fludrocortisone Acetate 0.1 mg PO DAILY 11/01/16 [Last Taken 11/01/16] Sodium Chloride 1 gm PO TID 11/01/16 [Last Taken 11/01/16] Exam - Exam Vital Signs: Vital Signs - Last Taken Temp 36.6 C 10/20/16 07:54 Pulse Resp BP 111/64 10/25/16 16:47 Pulse Ox Constitutional: Present: Alert, Oriented x3, Cooperative, Well developed, Well nourished, No distress, Elderly ENT Exam: Present: normal ENT inspection, hearing grossly normal, moist mucous membranes Eye Exam: bilateral eye: normal inspection, PERRL, EOMI Neck: Present: non-tender, supple, normal inspection, trachea midline Respiratory: Present: lungs clear, normal breath sounds, no respiratory distress , no accessory muscle use Cardiovascular/Chest: Present: regular rate, rhythm, no JVD, no murmur, edema - Trace edema in bilateral LEs Abdomen: Present: Normal bowel sounds, soft, nontender, nondistended Extremity: Present: normal range of motion, non-tender, normal inspection, other - Trace edema Skin Exam: Present: warm/dry, no cyanosis Neurologic: Present: no motor/sensory deficits, alert, normal mood/affect, oriented x 3 Appearance: Present: appropriate appearance, appropriate insight, neat, no memory impairment Eye contact: Present: cooperative, good eye contact, normal speech Thoughts: Present: normal thought pattern, no apparent hallucination Assessment/Plan - Narrative Narrative: IMPRESSION & PLAN: Syncope secondary to severely uncontrolled orthostatic hypotension -Admit to Med-Surg, Inpatient Status -Monitor vitals q4h while awake. Complete orthostatic vital signs with each vital check. -Fludrocortisone restarted on 11.01.2016. Continue with 0.1mg daily. -Sodium chloride also restarted on 11.01.2016. Continue 1 gram PO TID -Compression stockings -Plan for Cosyntropin stim test tomorrow CHRONIC, STABLE MEDICAL CONDITIONS: Type 2 DM: Diet controlled. Last A1c 6.6%. HLD: Diet controlled. GERD: Stable, well controlled on home omeprazole. VTE Prophylaxis: Lovenox, compression stockings Code Status: Full Code - Assessment/Plan (1) Syncope Problem: Acute (2) Orthostatic hypotension Problem: Resolved
[2016-11-01] MEDS: ENOXAPARIN SODIUM 40 MG/0.4 ML SYRG SC SCH (16:12)
[2016-11-01] MEDS: SODIUM CHLORIDE 1 GM TABLET PO SCH (16:13)
[2016-11-02 06:00] LABS: Hematocrit 33.5 % (37.0-47.0); Hemoglobin 10.4 gm/dL (12.5-16.0); Mean Cell Volume 85.9 fl (78-100); Mean Corpuscular Hemoglobin 26.7 pg (27-31); Mean Platelet Volume 10.4 fl (6.0-9.5); Neutrophil # 3.9 K/mm3 (1.3-6.0); Neutrophil % 54.4 % (42-75.0); Platelet Count 275 K/mm3 (150-450); Red Cell Distribution Width 13.6 % (11.5-14.0); White Blood Count 7.2 K/mm3 (4.0-10.5)
[2016-11-02 06:14] LABS: Anion Gap 11.8 mmol/L (6.8-13.8); BUN/Creatinine Ratio 16.7 (9.0-21.6); Calcium * 8.6 mg/dL (7.9-10.9); Carbon Dioxide 27.5 mmol/L (24-32.6); Estimated Creat Clear 32.4; Potassium 4.3 mmol/L (3.4-4.6)
[2016-11-02] MEDS: PANTOPRAZOLE SODIUM 20 MG TABLET.DR PO SCH (07:09)
[2016-11-02] MEDS: DOCUSATE SODIUM 100 MG CAPSULE PO SCH (08:20)
[2016-11-02] MEDS: FLUDROCORTISONE ACETATE 0.1 MG TABLET PO SCH (08:20)
[2016-11-02] MEDS: ESCITALOPRAM OXALATE 10 MG TAB PO SCH (08:21)
[2016-11-02] MEDS: POTASSIUM CHLORIDE 20 MEQ TABLET.SA PO SCH (08:21)
[2016-11-02] MEDS: SODIUM CHLORIDE 1 GM TABLET PO SCH ×3 (08:22→16:39)
[2016-11-02] MEDS: MULTIVITAMINS 1 CAP CAPSULE PO SCH (08:22)
[2016-11-02] MEDS: CYANOCOBALAMIN 1,000 MCG TABLET PO SCH (08:22)
[2016-11-02] MEDS: ASPIRIN 81 MG TAB.CHEW PO SCH (08:25)
[2016-11-02] MEDS ORDERED: COSYNTROPIN 0.25 MG VIAL IV ONE (09:15)
--- NOTE | 2016-11-02 09:45 | PN ---
Subjective - Date and Time Seen Date: 11/02/16 Time: 09:41 Subjective Narrative: Patient seen and examined at bedside this AM. No acute issues overnight. She admits to having 1 "episode" shortly after getting admitted but has not had any since that time. The patient denies any new issues or concerns. Objective - Review of Systems Generalized/Overall Review: Reports: Weakness EENTM: Reports: No Symptoms Reported Respiratory: Reports: No Symptoms Reported Cardiac: Denies: Chest Pain, Palpitations Abdominal: Reports: No Symptoms Reported Genitourinary Symptoms: Reports: No Symptoms Reported Musculoskeletal Complaints: Reports: No Symptoms Reported Neurological: Reports: No Symptoms Reported Skin: Reports: No Symptoms Reported Endocrine: Reports: No Symptoms Reported Misc: All systems neg except as marked - Vitals Vitals: Last Vital Signs Temp 36.6 C 11/02/16 08:07 Pulse 78 11/02/16 08:07 Resp 16 11/02/16 08:07 BP 183/67 11/02/16 08:07 Pulse Ox 96 11/02/16 08:07 - Abnormal Lab Findings Abnormal Lab Findings: Abnormal Lab Results 11/02/16 11/02/16 Range/Units 05:47 05:47 RBC 3.90 L (4.2-5.4) M/mm3 Hgb 10.4 L (12.5-16.0) gm/dL Hct 33.5 L (37.0-47.0) % MCH 26.7 L (27-31) pg MCHC 31.0 L (32-36) g/dl MPV 10.4 H (6.0-9.5) fl Random Glucose 118 H (70-110) mg/dL - Exam Constitutional: Present: Alert, Oriented x3, Cooperative, Well nourished, No distress, Elderly ENT Exam: Present: normal ENT inspection, moist mucous membranes Respiratory: Present: lungs clear, normal breath sounds, no respiratory distress , no accessory muscle use Cardiovascular/Chest: Present: regular rate, rhythm, no JVD, no murmur, edema - Trace edema in bilateral LEs Abdomen: Present: Normal bowel sounds, soft, nontender, nondistended Extremity: Present: normal range of motion, normal inspection Skin Exam: Present: warm/dry, no cyanosis Neurologic: Present: no motor/sensory deficits, alert, normal mood/affect, oriented x 3 Appearance: Present: appropriate appearance, appropriate insight Eye contact: Present: cooperative, good eye contact, normal speech Thoughts: Present: normal thought pattern, no apparent hallucination Assessment/Plan Plan Narrative: IMPRESSION & PLAN: Syncope secondary to severely uncontrolled orthostatic hypotension -Monitor vitals q4h while awake. Complete orthostatic vital signs with each vital check. -Continue Fludrocortisone 0.1mg daily -Continue sodium chloride 1 gram PO TID -Compression stockings -Cosyntropin stim test order for today CHRONIC, STABLE MEDICAL CONDITIONS: Type 2 DM: Diet controlled. Last A1c 6.6%. HLD: Diet controlled. GERD: Stable, well controlled on home omeprazole. VTE Prophylaxis: Lovenox, compression stockings Code Status: Full Code - Problems/Diagnosis (1) Syncope Problem: Acute (2) Orthostatic hypotension Problem: Chronic Narrative: Acute worsening
[2016-11-02] MEDS: ENOXAPARIN SODIUM 40 MG/0.4 ML SYRG SC SCH (14:41)
[2016-11-03] MEDS: PANTOPRAZOLE SODIUM 20 MG TABLET.DR PO SCH (06:40)
--- NOTE | 2016-11-03 07:02 | PN ---
Subjective - Date and Time Seen Date: 11/03/16 Time: 07:01 Subjective Narrative: Patient seen and examined at bedside this AM. She admits to having 1 episode yesterday of lightheadedness. The patient denies any new issues or concerns. Orthostatic vitals still markedly abnormal with a drop in SBP >100mmHg when going from supine to standing. Objective - Review of Systems Generalized/Overall Review: Reports: Fatigue EENTM: Reports: No Symptoms Reported Respiratory: Reports: No Symptoms Reported Cardiac: Reports: Syncope Abdominal: Reports: No Symptoms Reported Genitourinary Symptoms: Reports: No Symptoms Reported Musculoskeletal Complaints: Reports: No Symptoms Reported Neurological: Reports: No Symptoms Reported Skin: Reports: No Symptoms Reported Endocrine: Reports: No Symptoms Reported Misc: All systems neg except as marked - Vitals Vitals: Last Vital Signs Temp 36.9 C 11/03/16 03:01 Pulse 62 11/03/16 03:01 Resp 18 11/03/16 03:01 BP 240/80 11/03/16 03:01 Pulse Ox 93 11/03/16 03:01 - Exam Constitutional: Present: Alert, Cooperative, Well developed, Well nourished, No distress, Elderly ENT Exam: Present: hearing grossly normal, moist mucous membranes Respiratory: Present: lungs clear, normal breath sounds, no respiratory distress , no accessory muscle use Cardiovascular/Chest: Present: regular rate, rhythm, no JVD, no murmur, edema - Trace Abdomen: Present: Normal bowel sounds, soft, nontender, nondistended Extremity: Present: normal range of motion, non-tender, normal inspection, pedal edema - Trace Skin Exam: Present: warm/dry, no cyanosis Neurologic: Present: no motor/sensory deficits, alert, normal mood/affect, oriented x 3 Appearance: Present: appropriate appearance, appropriate insight Eye contact: Present: cooperative, good eye contact, normal speech Thoughts: Present: normal thought pattern, no apparent hallucination Assessment/Plan Plan Narrative: IMPRESSION & PLAN: Syncope secondary to severely uncontrolled orthostatic hypotension -Monitor vitals q4h while awake. Complete orthostatic vital signs with each vital check. Orthostatic vitals still markedly abnormal with a drop in SBP > 100mmHg when going from supine to standing. -Continue Fludrocortisone 0.1mg daily -Continue sodium chloride 1 gram PO TID -Compression stockings -Cosyntropin stim test to be completed today. CHRONIC, STABLE MEDICAL CONDITIONS: Type 2 DM: Diet controlled. Last A1c 6.6%. HLD: Diet controlled. GERD: Stable, well controlled on home omeprazole. VTE Prophylaxis: Lovenox, compression stockings Code Status: Full Code - Problems/Diagnosis (1) Syncope Problem: Acute (2) Orthostatic hypotension Problem: Chronic
[2016-11-03] MEDS: ASPIRIN 81 MG TAB.CHEW PO SCH (09:56)
[2016-11-03] MEDS: FLUDROCORTISONE ACETATE 0.1 MG TABLET PO SCH (09:56)
[2016-11-03] MEDS: DOCUSATE SODIUM 100 MG CAPSULE PO SCH (09:56)
[2016-11-03] MEDS: POTASSIUM CHLORIDE 20 MEQ TABLET.SA PO SCH (09:57)
[2016-11-03] MEDS: ESCITALOPRAM OXALATE 10 MG TAB PO SCH (09:57)
[2016-11-03] MEDS: MULTIVITAMINS 1 CAP CAPSULE PO SCH (09:57)
[2016-11-03] MEDS: CYANOCOBALAMIN 1,000 MCG TABLET PO SCH (09:57)
[2016-11-03] MEDS: SODIUM CHLORIDE 1 GM TABLET PO SCH ×3 (09:58→16:02)
[2016-11-03] MEDS: ENOXAPARIN SODIUM 40 MG/0.4 ML SYRG SC SCH (14:29)
[2016-11-04] MEDS: PANTOPRAZOLE SODIUM 20 MG TABLET.DR PO SCH (06:11)
[2016-11-04] MEDS: ASPIRIN 81 MG TAB.CHEW PO SCH (08:29)
[2016-11-04] MEDS: DOCUSATE SODIUM 100 MG CAPSULE PO SCH (08:29)
[2016-11-04] MEDS: MULTIVITAMINS 1 CAP CAPSULE PO SCH (08:30)
[2016-11-04] MEDS: ESCITALOPRAM OXALATE 10 MG TAB PO SCH (08:30)
[2016-11-04] MEDS: SODIUM CHLORIDE 1 GM TABLET PO SCH ×3 (08:30→16:06)
[2016-11-04] MEDS: CYANOCOBALAMIN 1,000 MCG TABLET PO SCH (08:30)
[2016-11-04] MEDS: POTASSIUM CHLORIDE 20 MEQ TABLET.SA PO SCH (08:30)
[2016-11-04] MEDS ORDERED: FLUDROCORTISONE ACETATE 0.1 MG TABLET PO SCH (09:00)
[2016-11-04] MEDS: MIDODRINE HCL 2.5 MG TABLET PO SCH ×3 (09:52→16:05)
--- NOTE | 2016-11-04 10:26 | PN ---
Subjective - Date and Time Seen Date: 11/04/16 Time: 10:23 Subjective Narrative: Patient seen and examined at bedside this AM. She admits to having 1 episode since I last saw her. She states she was coming back from the bathroom and felt her face get really hot and she states her [employer] told her that her face became really pale so she quickly got her to the bed to sit down. Objective - Review of Systems Generalized/Overall Review: Reports: Fatigue EENTM: Reports: No Symptoms Reported Respiratory: Reports: No Symptoms Reported Cardiac: Reports: No Symptoms Reported Abdominal: Reports: No Symptoms Reported Genitourinary Symptoms: Reports: No Symptoms Reported Musculoskeletal Complaints: Reports: No Symptoms Reported Neurological: Reports: No Symptoms Reported Skin: Reports: No Symptoms Reported Endocrine: Reports: No Symptoms Reported Misc: All systems neg except as marked - Vitals Vitals: Last Vital Signs Temp 36.6 C 11/04/16 08:03 Pulse 74 11/04/16 08:04 Resp 20 11/04/16 08:03 BP 184/62 11/04/16 08:03 Pulse Ox 95 11/04/16 08:03 - Abnormal Lab Findings Abnormal Lab Findings: Abnormal Lab Results 11/02/16 11/02/16 Range/Units 11:08 11:40 Cortisol 31.4 H 40.6 H mcg/dL - Exam Constitutional: Present: Alert, Oriented x3, Cooperative, Well developed, Well nourished, No distress, Elderly ENT Exam: Present: normal ENT inspection, hearing grossly normal, moist mucous membranes Respiratory: Present: lungs clear, normal breath sounds, no respiratory distress , no accessory muscle use Cardiovascular/Chest: Present: regular rate, rhythm, edema - Trace edema in bilateral LEs Abdomen: Present: Normal bowel sounds, soft, nontender, nondistended Extremity: Present: normal range of motion, normal inspection Skin Exam: Present: warm/dry, no cyanosis Neurologic: Present: no motor/sensory deficits, alert, normal mood/affect, oriented x 3 Eye contact: Present: cooperative, good eye contact, normal speech Thoughts: Present: normal thought pattern, no apparent hallucination Assessment/Plan Plan Narrative: IMPRESSION & PLAN: Syncope secondary to severely uncontrolled orthostatic hypotension -Monitor vitals q4h while awake. Complete orthostatic vital signs with each vital check. Orthostatic vitals still markedly abnormal with a drop in SBP by nearly 100mmHg when going from supine to standing. -Disontinue Fludrocortisone. Start Midodrine 5mg TID (given at 0700, 1000 and 1300 daily). -Continue sodium chloride 1 gram PO TID -Compression stockings -Cosyntropin stim test unremarkable with no evidence for adrenal insufficiency CHRONIC, STABLE MEDICAL CONDITIONS: Type 2 DM: Diet controlled. Last A1c 6.6%. HLD: Diet controlled. GERD: Stable, well controlled on home omeprazole. VTE Prophylaxis: Lovenox, compression stockings Code Status: Full Code Disposition: Patient continues to have severely uncontrolled orthostatic hypotension. Medication changes made today and we will monitor for improvement. Patient unsafe to be discharged at this time given her high risk for syncope. We will monitor the patient over the weekend and hopefully we will see improvement in her symptoms as well as her orthostatic vitals on Midodrine. Earliest potential discharge will be next week. - Problems/Diagnosis (1) Syncope Problem: Acute (2) Orthostatic hypotension Problem: Chronic
[2016-11-04] MEDS: ENOXAPARIN SODIUM 40 MG/0.4 ML SYRG SC SCH (16:05)
[2016-11-05 05:18] LABS: Anion Gap 10.8 mmol/L (6.8-13.8); BUN/Creatinine Ratio 13.5 (9.0-21.6); Calcium * 8.3 mg/dL (7.9-10.9); Carbon Dioxide 28.4 mmol/L (24-32.6); Estimated Creat Clear 32.4; Potassium 4.2 mmol/L (3.4-4.6)
[2016-11-05] MEDS: PANTOPRAZOLE SODIUM 20 MG TABLET.DR PO SCH (07:20)
[2016-11-05] MEDS: POTASSIUM CHLORIDE 20 MEQ TABLET.SA PO SCH (08:19)
[2016-11-05] MEDS: MULTIVITAMINS 1 CAP CAPSULE PO SCH (08:19)
[2016-11-05] MEDS: CYANOCOBALAMIN 1,000 MCG TABLET PO SCH (08:19)
[2016-11-05] MEDS: DOCUSATE SODIUM 100 MG CAPSULE PO SCH (08:19)
[2016-11-05] MEDS: SODIUM CHLORIDE 1 GM TABLET PO SCH ×3 (08:19→17:33)
[2016-11-05] MEDS: ESCITALOPRAM OXALATE 10 MG TAB PO SCH (08:19)
[2016-11-05] MEDS: ASPIRIN 81 MG TAB.CHEW PO SCH (08:19)
[2016-11-05] MEDS: MIDODRINE HCL 2.5 MG TABLET PO SCH ×3 (08:20→17:33)
--- NOTE | 2016-11-05 09:27 | PN ---
Subjective - Date and Time Seen Date: 11/05/16 Time: 09:23 Subjective Narrative: Patient seen and examined at bedside this AM. She admits to having a couple more episode yesterday late morning/early afternoon but has not had any since that time and she states that she is actually feeling pretty good and admits to a slight improvement in her energy level. Patient has noticed intermittent goosebumps that come randomly out of nowhere and are usually isolated to her left upper extremity. I discussed with the patient that this is a known side effect of Midodrine. She also admits to some posterior right sided neck pain and she states that she thinks she must have slept wrong. On exam, she has increased tone/spasm of right sided cervical paraspinal muscle. Objective - Review of Systems Generalized/Overall Review: Reports: Fatigue EENTM: Reports: No Symptoms Reported Respiratory: Reports: No Symptoms Reported Cardiac: Reports: No Symptoms Reported Abdominal: Reports: No Symptoms Reported Genitourinary Symptoms: Reports: No Symptoms Reported Musculoskeletal Complaints: Reports: Neck Pain Neurological: Reports: No Symptoms Reported Skin: Reports: No Symptoms Reported Endocrine: Reports: No Symptoms Reported Misc: All systems neg except as marked - Vitals Vitals: Last Vital Signs Temp 36.5 C 11/05/16 06:54 Pulse 64 11/05/16 06:55 Resp 20 11/05/16 06:54 BP 180/84 11/05/16 06:54 Pulse Ox 96 11/05/16 06:54 - Abnormal Lab Findings Abnormal Lab Findings: Abnormal Lab Results 11/05/16 Range/Units 04:58 Random Glucose 128 H (70-110) mg/dL - Exam Constitutional: Present: Alert, Oriented x3, Cooperative, Well developed, Well nourished, No distress, Elderly ENT Exam: Present: normal ENT inspection, hearing grossly normal, moist mucous membranes Neck: Present: full range of motion, normal inspection, other - Increased tone/ spasm of right sided cervical paraspinal muscle with mild TTP present Respiratory: Present: lungs clear, normal breath sounds, no respiratory distress , no accessory muscle use Cardiovascular/Chest: Present: regular rate, rhythm, no JVD, no murmur, edema - Trace Abdomen: Present: Normal bowel sounds, soft, nontender, nondistended Extremity: Present: normal range of motion, non-tender, normal inspection, pedal edema - Trace Skin Exam: Present: warm/dry, no cyanosis Neurologic: Present: no motor/sensory deficits, alert, normal mood/affect, oriented x 3 Appearance: Present: appropriate appearance, appropriate insight Eye contact: Present: cooperative, good eye contact, normal speech Thoughts: Present: normal thought pattern, no apparent hallucination Assessment/Plan Plan Narrative: IMPRESSION & PLAN: Syncope secondary to severely uncontrolled orthostatic hypotension -Monitor vitals q4h while awake. Complete orthostatic vital signs with each vital check. Orthostatic vitals still markedly abnormal but appear to be improving; drop in SBP ~80mmHg from supine to standing. -Continue Midodrine 5mg TID (given at 0700, 1000 and 1300 daily). -Continue sodium chloride 1 gram PO TID -Compression stockings -Cosyntropin stim test unremarkable with no evidence for adrenal insufficiency CHRONIC, STABLE MEDICAL CONDITIONS: Type 2 DM: Diet controlled. Last A1c 6.6%. HLD: Diet controlled. GERD: Stable, well controlled on home omeprazole. VTE Prophylaxis: Lovenox, compression stockings Code Status: Full Code Disposition: Patient continues to have severely uncontrolled orthostatic hypotension. Medication changes made 11.04.2016 and we will continue monitor for improvement. Patient unsafe to be discharged at this time given her high risk for syncope. We will monitor the patient over the weekend and hopefully we will see improvement in her symptoms as well as her orthostatic vitals on Midodrine. Earliest potential discharge will be next week. - Problems/Diagnosis (1) Syncope Problem: Acute (2) Orthostatic hypotension Problem: Chronic
[2016-11-05] MEDS: ACETAMINOPHEN 325 MG TABLET PO PRN (09:59)
[2016-11-05] MEDS: ENOXAPARIN SODIUM 40 MG/0.4 ML SYRG SC SCH (14:51)
[2016-11-06] MEDS: POTASSIUM CHLORIDE 20 MEQ TABLET.SA PO SCH (09:03)
[2016-11-06] MEDS: PANTOPRAZOLE SODIUM 20 MG TABLET.DR PO SCH (09:03)
[2016-11-06] MEDS: ASPIRIN 81 MG TAB.CHEW PO SCH (09:03)
[2016-11-06] MEDS: DOCUSATE SODIUM 100 MG CAPSULE PO SCH (09:03)
[2016-11-06] MEDS: MULTIVITAMINS 1 CAP CAPSULE PO SCH (09:04)
[2016-11-06] MEDS: MIDODRINE HCL 2.5 MG TABLET PO SCH ×3 (09:04→16:31)
[2016-11-06] MEDS: SODIUM CHLORIDE 1 GM TABLET PO SCH ×3 (09:04→16:31)
[2016-11-06] MEDS: ESCITALOPRAM OXALATE 10 MG TAB PO SCH (09:04)
[2016-11-06] MEDS: CYANOCOBALAMIN 1,000 MCG TABLET PO SCH (09:04)
--- NOTE | 2016-11-06 11:20 | PN ---
Subjective - Date and Time Seen Date: 11/06/16 Time: 11:14 Subjective Narrative: Patient seen and examined at bedside this AM. She admits to having one episode yesterday around 1330; dizziness shortly after standing that only lasted a few seconds and she states the episode was much less severe than her usual episodes. She has not had any episodes of dizziness/lightheadedness since that time and overall, she states she is feeling much better. Patient reports intermittent goosebumps that come randomly out of nowhere and are usually isolated to a single extremity. I discussed with the patient that this is a known side effect of Midodrine. Neck discomfort patient complained of yesterday morning has entirely resolved using K pad and PRN Tylenol. She also states she had a BM yesterday. Objective - Review of Systems Generalized/Overall Review: Reports: No Symptoms Reported EENTM: Reports: No Symptoms Reported Respiratory: Reports: No Symptoms Reported Cardiac: Reports: No Symptoms Reported Abdominal: Reports: No Symptoms Reported Genitourinary Symptoms: Reports: No Symptoms Reported Musculoskeletal Complaints: Reports: No Symptoms Reported Neurological: Reports: No Symptoms Reported Skin: Reports: No Symptoms Reported Endocrine: Reports: No Symptoms Reported Misc: All systems neg except as marked - Vitals Vitals: Last Vital Signs Temp 37 C 11/06/16 10:36 Pulse 71 11/06/16 10:37 Resp 20 11/06/16 10:36 BP 141/42 11/06/16 10:36 Pulse Ox 98 11/06/16 10:36 - Exam Constitutional: Present: Alert, Oriented x3, Cooperative, Well developed, Well nourished, No distress, Elderly ENT Exam: Present: hearing grossly normal, moist mucous membranes Respiratory: Present: lungs clear, normal breath sounds, no respiratory distress , no accessory muscle use Cardiovascular/Chest: Present: regular rate, rhythm, no JVD, no murmur, edema - trace Abdomen: Present: Normal bowel sounds, soft, nontender, nondistended Extremity: Present: normal range of motion, normal inspection, pedal edema - trace Skin Exam: Present: warm/dry, no cyanosis Neurologic: Present: no motor/sensory deficits, alert, normal mood/affect, oriented x 3 Appearance: Present: appropriate appearance, appropriate insight Eye contact: Present: cooperative, good eye contact, normal speech Thoughts: Present: normal thought pattern, no apparent hallucination Assessment/Plan Plan Narrative: IMPRESSION & PLAN: Syncope secondary to severely uncontrolled orthostatic hypotension -Monitor vitals q4h while awake. Complete orthostatic vital signs with each vital check. Orthostatic vitals improving. -Continue Midodrine 5mg TID (given at 0700, 1000 and 1300 daily). -Continue sodium chloride 1 gram PO TID -Compression stockings -Cosyntropin stim test unremarkable with no evidence for adrenal insufficiency CHRONIC, STABLE MEDICAL CONDITIONS: Type 2 DM: Diet controlled. Last A1c 6.6%. HLD: Diet controlled. GERD: Stable, well controlled on home omeprazole. VTE Prophylaxis: Lovenox, compression stockings Code Status: Full Code Disposition: Patient continues to have uncontrolled orthostatic hypotension; however, both her vitals and her symptoms are improving since starting Midodrine. Patient unsafe to be discharged at this time given her high risk for syncope. We will monitor the patient over the weekend and hopefully we will continue to see improvement in her symptoms as well as her orthostatic vitals. Earliest potential discharge will be next week. - Problems/Diagnosis (1) Syncope Problem: Acute (2) Orthostatic hypotension Problem: Chronic
[2016-11-06] MEDS: ENOXAPARIN SODIUM 40 MG/0.4 ML SYRG SC SCH (15:24)
[2016-11-07] MEDS: PANTOPRAZOLE SODIUM 20 MG TABLET.DR PO SCH (06:35)
[2016-11-07] MEDS: ASPIRIN 81 MG TAB.CHEW PO SCH (08:43)
[2016-11-07] MEDS: SODIUM CHLORIDE 1 GM TABLET PO SCH ×3 (08:43→17:03)
[2016-11-07] MEDS: MIDODRINE HCL 2.5 MG TABLET PO SCH ×3 (08:43→17:04)
[2016-11-07] MEDS: CYANOCOBALAMIN 1,000 MCG TABLET PO SCH (08:43)
[2016-11-07] MEDS: POTASSIUM CHLORIDE 20 MEQ TABLET.SA PO SCH (08:44)
[2016-11-07] MEDS: DOCUSATE SODIUM 100 MG CAPSULE PO SCH (08:44)
[2016-11-07] MEDS: ESCITALOPRAM OXALATE 10 MG TAB PO SCH (08:44)
[2016-11-07] MEDS: MULTIVITAMINS 1 CAP CAPSULE PO SCH (08:44)
[2016-11-07] MEDS: ENOXAPARIN SODIUM 40 MG/0.4 ML SYRG SC SCH (15:19)
--- NOTE | 2016-11-07 17:38 | PN ---
<Talisha Johnston - Last Filed: 11/07/16 17:38> Subjective - Date and Time Seen Date: 11/07/16 Time: 17:15 Objective - Vitals Vitals: Last Vital Signs Temp 36.7 C 11/07/16 14:30 Pulse 84 11/07/16 14:30 Resp 18 11/07/16 14:30 BP 186/52 11/07/16 14:30 Pulse Ox 96 11/07/16 14:30 <Natividad Carlsona - Last Filed: 11/08/16 13:00> Subjective Subjective Narrative: Patient seen and examined at bedside. Patient states she is feeling much better and denies any episodes of dizziness/lightheadedness since I saw her yesterday. Objective - Review of Systems Generalized/Overall Review: Reports: No Symptoms Reported EENTM: Reports: No Symptoms Reported Respiratory: Reports: No Symptoms Reported Cardiac: Reports: No Symptoms Reported Abdominal: Reports: No Symptoms Reported Genitourinary Symptoms: Reports: No Symptoms Reported Musculoskeletal Complaints: Reports: No Symptoms Reported Neurological: Reports: No Symptoms Reported Skin: Reports: No Symptoms Reported Endocrine: Reports: No Symptoms Reported Misc: All systems neg except as marked - Vitals Vitals: Last Vital Signs Temp 36.8 C 11/08/16 06:53 Pulse 66 11/08/16 09:41 Resp 18 11/08/16 06:53 BP 188/61 11/08/16 06:53 Pulse Ox 96 11/08/16 06:53 - Exam Constitutional: Present: Alert, Oriented x3, Cooperative, Well developed, Well nourished, No distress, Elderly ENT Exam: Present: hearing grossly normal, moist mucous membranes Respiratory: Present: lungs clear, normal breath sounds, no respiratory distress , no accessory muscle use Cardiovascular/Chest: Present: regular rate, rhythm, no JVD, no murmur, edema - trace Abdomen: Present: Normal bowel sounds, soft, nontender, nondistended Extremity: Present: normal range of motion, non-tender, normal inspection, pedal edema - trace Skin Exam: Present: warm/dry, no cyanosis Neurologic: Present: no motor/sensory deficits, alert, normal mood/affect, oriented x 3 Appearance: Present: appropriate appearance, appropriate insight Eye contact: Present: cooperative, good eye contact, normal speech Thoughts: Present: normal thought pattern, no apparent hallucination Assessment/Plan Plan Narrative: IMPRESSION & PLAN: Syncope secondary to severely uncontrolled orthostatic hypotension -Monitor vitals q4h while awake. Complete orthostatic vital signs with each vital check. Orthostatic vitals improving. -Continue Midodrine 5mg TID (given at 0700, 1000 and 1300 daily). -Continue sodium chloride 1 gram PO TID -Compression stockings -Cosyntropin stim test unremarkable with no evidence for adrenal insufficiency CHRONIC, STABLE MEDICAL CONDITIONS: Type 2 DM: Diet controlled. Last A1c 6.6%. HLD: Diet controlled. GERD: Stable, well controlled on home omeprazole. VTE Prophylaxis: Lovenox, compression stockings Code Status: Full Code Disposition: Overall clinical condition improving. No pre-syncopal episodes or symptoms over the past 24 hours. If patient remains symptom for the next 24 hours, we will plan to discharge the patient home on Monday (11.09.2016) morning. - Problems/Diagnosis (1) Syncope Problem: Acute (2) Orthostatic hypotension Problem: Chronic
[2016-11-08] MEDS: PANTOPRAZOLE SODIUM 20 MG TABLET.DR PO SCH (06:40)
[2016-11-08] MEDS: ASPIRIN 81 MG TAB.CHEW PO SCH (08:43)
[2016-11-08] MEDS: CYANOCOBALAMIN 1,000 MCG TABLET PO SCH (08:45)
[2016-11-08] MEDS: SODIUM CHLORIDE 1 GM TABLET PO SCH ×3 (08:46→16:32)
[2016-11-08] MEDS: DOCUSATE SODIUM 100 MG CAPSULE PO SCH (08:48)
[2016-11-08] MEDS: ESCITALOPRAM OXALATE 10 MG TAB PO SCH (08:52)
[2016-11-08] MEDS: MULTIVITAMINS 1 CAP CAPSULE PO SCH (09:06)
[2016-11-08] MEDS: POTASSIUM CHLORIDE 20 MEQ TABLET.SA PO SCH (09:06)
[2016-11-08] MEDS: MIDODRINE HCL 2.5 MG TABLET PO SCH ×3 (09:07→16:32)
[2016-11-08] MEDS: ACETAMINOPHEN 325 MG TABLET PO PRN (11:20)
--- NOTE | 2016-11-08 13:06 | PN ---
Subjective - Date and Time Seen Date: 11/08/16 Time: 13:01 Subjective Narrative: Patient seen and examined at bedside. Patient denies any episodes of dizziness/ lightheadedness since I saw her yesterday. Objective - Review of Systems Generalized/Overall Review: Reports: No Symptoms Reported EENTM: Reports: No Symptoms Reported Respiratory: Reports: No Symptoms Reported Cardiac: Reports: No Symptoms Reported Abdominal: Reports: No Symptoms Reported Genitourinary Symptoms: Reports: No Symptoms Reported Musculoskeletal Complaints: Reports: No Symptoms Reported Neurological: Reports: No Symptoms Reported Skin: Reports: No Symptoms Reported Endocrine: Reports: No Symptoms Reported Misc: All systems neg except as marked - Vitals Vitals: Last Vital Signs Temp 36.8 C 11/08/16 06:53 Pulse 66 11/08/16 09:41 Resp 18 11/08/16 06:53 BP 188/61 11/08/16 06:53 Pulse Ox 96 11/08/16 06:53 - Exam Constitutional: Present: Alert, Oriented x3, Cooperative, Well developed, Well nourished, No distress, Elderly ENT Exam: Present: hearing grossly normal, moist mucous membranes Respiratory: Present: lungs clear, normal breath sounds, no respiratory distress , no accessory muscle use Cardiovascular/Chest: Present: regular rate, rhythm, no JVD, no murmur, edema - TRACE Abdomen: Present: Normal bowel sounds, soft, nontender, nondistended Extremity: Present: normal range of motion, non-tender, normal inspection, pedal edema - trace Skin Exam: Present: warm/dry, no cyanosis Neurologic: Present: no motor/sensory deficits, alert, normal mood/affect, oriented x 3 Appearance: Present: appropriate appearance, appropriate insight Eye contact: Present: cooperative, good eye contact, normal speech Thoughts: Present: normal thought pattern, no apparent hallucination Assessment/Plan Plan Narrative: IMPRESSION & PLAN: Syncope secondary to severely uncontrolled orthostatic hypotension -Monitor vitals q4h WHILE AWAKE. Complete orthostatic vital signs with each vital check but not until at least 10-15 minutes after she has received her first dose of Midodrine each morning. -Continue Midodrine 5mg TID (given at 0700, 1000 and 1300 daily). -Continue sodium chloride 1 gram PO TID -Compression stockings -Cosyntropin stim test unremarkable with no evidence for adrenal insufficiency CHRONIC, STABLE MEDICAL CONDITIONS: Type 2 DM: Diet controlled. Last A1c 6.6%. HLD: Diet controlled. GERD: Stable, well controlled on home omeprazole. VTE Prophylaxis: Lovenox, compression stockings Code Status: Full Code Disposition: Overall clinical condition improving. No pre-syncopal episodes or symptoms over the past ~36 hours. If patient remains symptom free for rest of the day/night, we will plan to discharge the patient home on Monday ( 11.09.2016) morning. - Problems/Diagnosis (1) Syncope Problem: Acute (2) Orthostatic hypotension Problem: Chronic
[2016-11-08] MEDS: ENOXAPARIN SODIUM 40 MG/0.4 ML SYRG SC SCH (14:29)
[2016-11-09] MEDS: PANTOPRAZOLE SODIUM 20 MG TABLET.DR PO SCH (06:57)
[2016-11-09] MEDS: DOCUSATE SODIUM 100 MG CAPSULE PO SCH (09:13)
[2016-11-09] MEDS: MULTIVITAMINS 1 CAP CAPSULE PO SCH (09:13)
[2016-11-09] MEDS: MIDODRINE HCL 2.5 MG TABLET PO SCH ×4 (09:13→17:10)
[2016-11-09] MEDS: ASPIRIN 81 MG TAB.CHEW PO SCH (09:13)
[2016-11-09] MEDS: SODIUM CHLORIDE 1 GM TABLET PO SCH ×3 (09:13→17:11)
[2016-11-09] MEDS: POTASSIUM CHLORIDE 20 MEQ TABLET.SA PO SCH (09:14)
[2016-11-09] MEDS: CYANOCOBALAMIN 1,000 MCG TABLET PO SCH (09:14)
[2016-11-09] MEDS: ESCITALOPRAM OXALATE 10 MG TAB PO SCH (09:14)
--- NOTE | 2016-11-09 12:36 | PN ---
Subjective - Date and Time Seen Date: 11/09/16 Time: 09:30 Subjective Narrative: Patient seen and examined at bedside. Patient denies any episodes of dizziness/ lightheadedness since I saw her yesterday; however, nursing staff noticed that she became shaky while taking orthostatic vitals around 1900 yesterday evening. Patient admits she didn't feel good at that time but states she wasn't lightheaded. Objective - Review of Systems Generalized/Overall Review: Reports: Fatigue EENTM: Reports: No Symptoms Reported Respiratory: Reports: No Symptoms Reported Cardiac: Reports: No Symptoms Reported Abdominal: Reports: No Symptoms Reported Genitourinary Symptoms: Reports: No Symptoms Reported Musculoskeletal Complaints: Reports: No Symptoms Reported Neurological: Reports: No Symptoms Reported Skin: Reports: No Symptoms Reported Endocrine: Reports: No Symptoms Reported Misc: All systems neg except as marked - Vitals Vitals: Last Vital Signs Temp 36.6 C 11/09/16 11:00 Pulse 60 11/09/16 11:00 Resp 18 11/09/16 11:00 BP 220/75 11/09/16 07:24 Pulse Ox 96 11/09/16 11:00 - Exam Constitutional: Present: Alert, Oriented x3, Cooperative, Well developed, Well nourished, No distress, Elderly ENT Exam: Present: hearing grossly normal, moist mucous membranes Respiratory: Present: lungs clear, normal breath sounds, no respiratory distress , no accessory muscle use Cardiovascular/Chest: Present: regular rate, rhythm, no JVD, no murmur, edema - trace Abdomen: Present: Normal bowel sounds, soft, nontender, nondistended Extremity: Present: normal range of motion, normal inspection, pedal edema - trace Skin Exam: Present: warm/dry, no cyanosis Neurologic: Present: no motor/sensory deficits, alert, normal mood/affect, oriented x 3 Appearance: Present: appropriate appearance, appropriate insight, neat, no memory impairment Eye contact: Present: cooperative, good eye contact, normal speech Thoughts: Present: normal thought pattern, no apparent hallucination Assessment/Plan Plan Narrative: IMPRESSION & PLAN: Syncope secondary to uncontrolled orthostatic hypotension -Monitor vitals q4h WHILE AWAKE. Complete orthostatic vital signs with each vital check but not until at least 10-15 minutes after she has received her first dose of Midodrine each morning. -Increase Midodrine to 10mg TID -Continue sodium chloride 1 gram PO TID -Compression stockings -Cosyntropin stim test unremarkable with no evidence for adrenal insufficiency CHRONIC, STABLE MEDICAL CONDITIONS: Type 2 DM: Diet controlled. Last A1c 6.6%. HLD: Diet controlled. GERD: Stable, well controlled on home omeprazole. VTE Prophylaxis: Lovenox, compression stockings Code Status: Full Code Disposition: Midodrine increased today. Continue to monitor clinical course. Possible discharge home in the next 1-2 days. - Problems/Diagnosis (1) Syncope Problem: Acute (2) Orthostatic hypotension Problem: Chronic
[2016-11-09] MEDS ORDERED: MIDODRINE HCL 2.5 MG TABLET PO ONE (13:30)
[2016-11-09] MEDS: ENOXAPARIN SODIUM 40 MG/0.4 ML SYRG SC SCH (14:51)
[2016-11-10] MEDS: PANTOPRAZOLE SODIUM 20 MG TABLET.DR PO SCH (07:37)
[2016-11-10] MEDS: CYANOCOBALAMIN 1,000 MCG TABLET PO SCH (09:54)
[2016-11-10] MEDS: DOCUSATE SODIUM 100 MG CAPSULE PO SCH (09:54)
[2016-11-10] MEDS: ASPIRIN 81 MG TAB.CHEW PO SCH (09:54)
[2016-11-10] MEDS: SODIUM CHLORIDE 1 GM TABLET PO SCH (09:54)
[2016-11-10] MEDS: POTASSIUM CHLORIDE 20 MEQ TABLET.SA PO SCH (09:55)
[2016-11-10] MEDS: ESCITALOPRAM OXALATE 10 MG TAB PO SCH (09:55)
[2016-11-10] MEDS: MULTIVITAMINS 1 CAP CAPSULE PO SCH (09:55)
[2016-11-10] MEDS: MIDODRINE HCL 2.5 MG TABLET PO SCH ×3 (09:55→17:41)
--- NOTE | 2016-11-10 11:19 | PN ---
Subjective - Date and Time Seen Date: 11/10/16 Time: 11:16 Subjective Narrative: Patient seen and examined at bedside. Patient had episode of pre-syncope this AM and she admits to having dizziness/lightheadedness at that time. However, she had not received her AM dose of Midodrine and it appears she was not given her first dose of Midodrine today until 1000. Objective - Review of Systems Generalized/Overall Review: Reports: Fatigue EENTM: Reports: No Symptoms Reported Respiratory: Reports: No Symptoms Reported Cardiac: Reports: Other - Dizziness/lightheadedness with standing Abdominal: Reports: No Symptoms Reported Genitourinary Symptoms: Reports: No Symptoms Reported Musculoskeletal Complaints: Reports: No Symptoms Reported Neurological: Reports: No Symptoms Reported Skin: Reports: No Symptoms Reported Endocrine: Reports: No Symptoms Reported Misc: All systems neg except as marked - Vitals Vitals: Last Vital Signs Temp 36.6 C 11/10/16 10:32 Pulse 70 11/10/16 10:34 Resp 20 11/10/16 10:32 BP 196/66 11/10/16 10:32 Pulse Ox 96 11/10/16 10:32 - Exam Constitutional: Present: Alert, Oriented x3, Cooperative, Well developed, Well nourished, No distress, Elderly ENT Exam: Present: normal ENT inspection, hearing grossly normal, moist mucous membranes Respiratory: Present: lungs clear, normal breath sounds, no respiratory distress , no accessory muscle use Cardiovascular/Chest: Present: regular rate, rhythm, no JVD, no murmur, edema - trace Abdomen: Present: Normal bowel sounds, soft, nontender, nondistended Extremity: Present: normal range of motion, non-tender, normal inspection, pedal edema - trace Skin Exam: Present: warm/dry, no cyanosis Neurologic: Present: no motor/sensory deficits, alert, normal mood/affect, oriented x 3 Appearance: Present: appropriate appearance, appropriate insight, neat, no memory impairment Eye contact: Present: cooperative, good eye contact, normal speech Thoughts: Present: normal thought pattern, no apparent hallucination Assessment/Plan Plan Narrative: IMPRESSION & PLAN: Syncope secondary to uncontrolled orthostatic hypotension -Monitor vitals q4h WHILE AWAKE. Complete orthostatic vital signs with each vital check but not until at least 10-15 minutes after she has received her first dose of Midodrine each morning. Patient had episode of pre-syncope this AM and she admits to having dizziness/lightheadedness at that time. However, she had not received her AM dose of Midodrine and it appears she was not given her first dose of Midodrine today until 1000, which is unacceptable. I, again, rewrote the order for the Midodrine emphasizing that it must be given at 0700, 1100 and 1500 daily and it needs to be given as close to these exact times as possible. -Continue Midodrine 10mg TID (increased from 5mg TID on 11.09.2016) -Discontinue sodium chloride 1 gram PO TID and monitor BP with Midodrine only -Compression stockings -Cosyntropin stim test unremarkable with no evidence for adrenal insufficiency CHRONIC, STABLE MEDICAL CONDITIONS: Type 2 DM: Diet controlled. Last A1c 6.6%. HLD: Diet controlled. GERD: Stable, well controlled on home omeprazole. VTE Prophylaxis: Lovenox, compression stockings Code Status: Full Code Disposition: Midodrine timing adjustments made as above. Hopefully discharge home over the weekend or early next week but this will only be possible if Midodrine is actually given at the time intervals as ordered and she definitely cannot wait until 10AM to receive her first dose for the day. - Problems/Diagnosis (1) Syncope Problem: Acute (2) Orthostatic hypotension Problem: Chronic
[2016-11-10] MEDS: ENOXAPARIN SODIUM 40 MG/0.4 ML SYRG SC SCH (15:31)
[2016-11-11 06:28] LABS: Anion Gap 13.2 mmol/L (6.8-13.8); BUN/Creatinine Ratio 14.6 (9.0-21.6); Calcium * 8.5 mg/dL (7.9-10.9); Carbon Dioxide 28.1 mmol/L (24-32.6); Estimated Creat Clear 30.2; Potassium 4.3 mmol/L (3.4-4.6)
[2016-11-11] MEDS ORDERED: MIDODRINE HCL 2.5 MG TABLET PO SCH (07:00)
[2016-11-11] MEDS: MIDODRINE HCL 2.5 MG TABLET PO SCH ×3 (07:02→15:17)
[2016-11-11] MEDS: PANTOPRAZOLE SODIUM 20 MG TABLET.DR PO SCH (07:03)
[2016-11-11] MEDS: POTASSIUM CHLORIDE 20 MEQ TABLET.SA PO SCH (09:21)
[2016-11-11] MEDS: ESCITALOPRAM OXALATE 10 MG TAB PO SCH (09:21)
[2016-11-11] MEDS: MULTIVITAMINS 1 CAP CAPSULE PO SCH (09:21)
[2016-11-11] MEDS: CYANOCOBALAMIN 1,000 MCG TABLET PO SCH (09:21)
[2016-11-11] MEDS: DOCUSATE SODIUM 100 MG CAPSULE PO SCH (09:21)
[2016-11-11] MEDS: ASPIRIN 81 MG TAB.CHEW PO SCH (09:21)
--- NOTE | 2016-11-11 14:45 | PN ---
Subjective - Date and Time Seen Date: 11/11/16 Time: 14:42 Subjective Narrative: Patient seen and examined at bedside. Patient had an episode of pre-syncope this AM around 0630 and she admits to having dizziness/lightheadedness at that time. However, she had not received her AM dose of Midodrine yet. Objective - Review of Systems Generalized/Overall Review: Reports: Weakness, Fatigue EENTM: Reports: No Symptoms Reported Respiratory: Reports: No Symptoms Reported Cardiac: Reports: No Symptoms Reported Abdominal: Reports: No Symptoms Reported Genitourinary Symptoms: Reports: No Symptoms Reported Musculoskeletal Complaints: Reports: No Symptoms Reported Neurological: Reports: No Symptoms Reported Skin: Reports: No Symptoms Reported Endocrine: Reports: No Symptoms Reported Misc: All systems neg except as marked - Vitals Vitals: Last Vital Signs Temp 36.4 C L 11/11/16 11:36 Pulse 71 11/11/16 11:36 Resp 20 11/11/16 11:36 BP 128/52 11/11/16 11:36 Pulse Ox 95 11/11/16 11:36 - Abnormal Lab Findings Abnormal Lab Findings: Abnormal Lab Results 11/11/16 Range/Units 06:07 Est GFR (Non-Af Amer) 55 L (60-130) mL/min Random Glucose 118 H (70-110) mg/dL - Exam Constitutional: Present: Alert, Oriented x3, Cooperative, Well developed, Well nourished, No distress, Elderly ENT Exam: Present: hearing grossly normal, moist mucous membranes Respiratory: Present: lungs clear, normal breath sounds, no respiratory distress , no accessory muscle use Cardiovascular/Chest: Present: regular rate, rhythm, no JVD, no murmur, edema - trace Abdomen: Present: Normal bowel sounds, soft, nontender, nondistended Extremity: Present: non-tender, normal inspection, pedal edema - trace Skin Exam: Present: warm/dry, no cyanosis Neurologic: Present: no motor/sensory deficits, alert, normal mood/affect, oriented x 3 Appearance: Present: appropriate appearance, appropriate insight, neat, no memory impairment Eye contact: Present: cooperative, good eye contact, normal speech Thoughts: Present: normal thought pattern, no apparent hallucination Assessment/Plan Plan Narrative: IMPRESSION & PLAN: Syncope secondary to uncontrolled orthostatic hypotension -Monitor vitals q4h WHILE AWAKE. Complete orthostatic vital signs with each vital check but not until at least 10-15 minutes after she has received her first dose of Midodrine each morning. Patient had episode of pre-syncope this AM and she admits to having dizziness/lightheadedness at that time. However, she had not received her AM dose of Midodrine yet. I, again, discussed the importance of the dosing of Midodrine emphasizing that it must be given at 0700 , 1100 and 1500 daily and it needs to be given as close to these exact times as possible. -Continue Midodrine 10mg TID (increased from 5mg TID on 11.09.2016) -Discontinue sodium chloride 1 gram PO TID and monitor BP with Midodrine only -Compression stockings -Cosyntropin stim test unremarkable with no evidence for adrenal insufficiency CHRONIC, STABLE MEDICAL CONDITIONS: Type 2 DM: Diet controlled. Last A1c 6.6%. HLD: Diet controlled. GERD: Stable, well controlled on home omeprazole. VTE Prophylaxis: Lovenox, compression stockings Code Status: Full Code Disposition: Patient will remain inpatient over the weekend while we continue to make medication adjustments to try and improve her orthostatic vitals and orthostatic symptoms. - Problems/Diagnosis (1) Syncope Problem: Acute (2) Orthostatic hypotension Problem: Chronic
[2016-11-11] MEDS: ENOXAPARIN SODIUM 40 MG/0.4 ML SYRG SC SCH (15:20)
[2016-11-11] MEDS: SODIUM CHLORIDE 1 GM TABLET PO SCH (16:57)
[2016-11-12] MEDS: MIDODRINE HCL 2.5 MG TABLET PO SCH ×3 (07:22→15:08)
[2016-11-12] MEDS: PANTOPRAZOLE SODIUM 20 MG TABLET.DR PO SCH (07:24)
[2016-11-12] MEDS: ASPIRIN 81 MG TAB.CHEW PO SCH (08:58)
[2016-11-12] MEDS: ESCITALOPRAM OXALATE 10 MG TAB PO SCH (08:59)
[2016-11-12] MEDS: DOCUSATE SODIUM 100 MG CAPSULE PO SCH (08:59)
[2016-11-12] MEDS: MULTIVITAMINS 1 CAP CAPSULE PO SCH (08:59)
[2016-11-12] MEDS: SODIUM CHLORIDE 1 GM TABLET PO SCH ×3 (08:59→17:52)
[2016-11-12] MEDS: POTASSIUM CHLORIDE 20 MEQ TABLET.SA PO SCH (08:59)
[2016-11-12] MEDS: CYANOCOBALAMIN 1,000 MCG TABLET PO SCH (08:59)
--- NOTE | 2016-11-12 12:08 | PN ---
Subjective - Date and Time Seen Date: 11/12/16 Time: 12:05 Subjective Narrative: Patient seen and examined at bedside this AM. Patient denies any episodes since I saw her yesterday evening. Patient states overall that she is feeling well and denies any new issues or concerns. Objective - Review of Systems Generalized/Overall Review: Reports: No Symptoms Reported EENTM: Reports: No Symptoms Reported Respiratory: Reports: No Symptoms Reported Cardiac: Reports: No Symptoms Reported Abdominal: Reports: No Symptoms Reported Genitourinary Symptoms: Reports: No Symptoms Reported Musculoskeletal Complaints: Reports: No Symptoms Reported Neurological: Reports: No Symptoms Reported Skin: Reports: No Symptoms Reported Endocrine: Reports: No Symptoms Reported Misc: All systems neg except as marked - Vitals Vitals: Last Vital Signs Temp 36.7 C 11/12/16 11:43 Pulse 68 11/12/16 11:52 Resp 20 11/12/16 11:43 BP 189/82 11/12/16 11:43 Pulse Ox 97 11/12/16 11:43 - Exam Constitutional: Present: Alert, Oriented x3, Cooperative, Well developed, Well nourished, No distress, Elderly ENT Exam: Present: hearing grossly normal, moist mucous membranes Respiratory: Present: lungs clear, normal breath sounds, no respiratory distress , no accessory muscle use Cardiovascular/Chest: Present: regular rate, rhythm, no JVD, no murmur, edema - trace Abdomen: Present: Normal bowel sounds, soft, nontender, nondistended Extremity: Present: normal inspection, pedal edema - trace Skin Exam: Present: warm/dry, no cyanosis Neurologic: Present: no motor/sensory deficits, alert, normal mood/affect, oriented x 3 Appearance: Present: appropriate appearance, appropriate insight, neat, no memory impairment Eye contact: Present: cooperative, good eye contact, normal speech Thoughts: Present: normal thought pattern, no apparent hallucination Assessment/Plan Plan Narrative: IMPRESSION & PLAN: Syncope secondary to uncontrolled orthostatic hypotension -Monitor vitals q4h WHILE AWAKE. Complete orthostatic vital signs with each vital check but not until at least 10-15 minutes after she has received her first dose of Midodrine each morning. -Continue Midodrine 10mg TID (increased from 5mg TID on 11.09.2016) -Continue sodium chloride 1 gram PO TID -Compression stockings -Cosyntropin stim test unremarkable with no evidence for adrenal insufficiency CHRONIC, STABLE MEDICAL CONDITIONS: Type 2 DM: Diet controlled. Last A1c 6.6%. HLD: Diet controlled. GERD: Stable, well controlled on home omeprazole. VTE Prophylaxis: Lovenox, compression stockings Code Status: Full Code Disposition: Planning for discharge home on Monday (11.14.2016) as long as patient does not have any further orthostatic symptoms over the weekend. - Problems/Diagnosis (1) Syncope Problem: Acute (2) Orthostatic hypotension Problem: Chronic
[2016-11-12] MEDS: ENOXAPARIN SODIUM 40 MG/0.4 ML SYRG SC SCH (15:10)
[2016-11-13] MEDS: PANTOPRAZOLE SODIUM 20 MG TABLET.DR PO SCH (07:05)
[2016-11-13] MEDS: MIDODRINE HCL 2.5 MG TABLET PO SCH ×3 (07:05→15:09)
[2016-11-13] MEDS: ASPIRIN 81 MG TAB.CHEW PO SCH (08:37)
[2016-11-13] MEDS: POTASSIUM CHLORIDE 20 MEQ TABLET.SA PO SCH (08:38)
[2016-11-13] MEDS: DOCUSATE SODIUM 100 MG CAPSULE PO SCH (08:38)
[2016-11-13] MEDS: SODIUM CHLORIDE 1 GM TABLET PO SCH ×3 (08:38→17:20)
[2016-11-13] MEDS: CYANOCOBALAMIN 1,000 MCG TABLET PO SCH (08:38)
[2016-11-13] MEDS: MULTIVITAMINS 1 CAP CAPSULE PO SCH (08:38)
--- NOTE | 2016-11-13 09:38 | PN ---
Subjective - Date and Time Seen Date: 11/13/16 Time: 09:35 Subjective Narrative: Patient seen and examined at bedside this AM. Patient denies any episodes over the past 24 hours. Patient states overall that she is feeling very well and denies any new issues or concerns. Objective - Review of Systems Generalized/Overall Review: Reports: No Symptoms Reported EENTM: Reports: No Symptoms Reported Respiratory: Reports: No Symptoms Reported Cardiac: Reports: No Symptoms Reported Abdominal: Reports: No Symptoms Reported Genitourinary Symptoms: Reports: No Symptoms Reported Musculoskeletal Complaints: Reports: No Symptoms Reported Neurological: Reports: No Symptoms Reported Skin: Reports: No Symptoms Reported Endocrine: Reports: No Symptoms Reported Misc: All systems neg except as marked - Vitals Vitals: Last Vital Signs Temp 36.4 C L 11/13/16 07:28 Pulse 68 11/13/16 07:37 Resp 16 11/13/16 07:28 BP 150/68 11/13/16 07:28 Pulse Ox 95 11/13/16 07:28 - Exam Constitutional: Present: Alert, Oriented x3, Cooperative, Well developed, Well nourished, No distress, Elderly ENT Exam: Present: hearing grossly normal, moist mucous membranes Respiratory: Present: lungs clear, normal breath sounds, no respiratory distress , no accessory muscle use Cardiovascular/Chest: Present: regular rate, rhythm, no JVD, no murmur, edema - trace Abdomen: Present: Normal bowel sounds, soft, nontender, nondistended Extremity: Present: normal range of motion, non-tender, normal inspection, no calf tenderness, lower extremity edema - trace Skin Exam: Present: warm/dry, no cyanosis Neurologic: Present: no motor/sensory deficits, alert, normal mood/affect, oriented x 3 Appearance: Present: appropriate appearance, appropriate insight, neat, no memory impairment Eye contact: Present: cooperative, good eye contact, normal speech Thoughts: Present: normal thought pattern, no apparent hallucination Assessment/Plan Plan Narrative: IMPRESSION & PLAN: Syncope secondary to uncontrolled orthostatic hypotension -Monitor vitals q4h WHILE AWAKE. Complete orthostatic vital signs with each vital check but not until at least 10-15 minutes after she has received her first dose of Midodrine each morning. -Continue Midodrine 10mg TID (increased from 5mg TID on 11.09.2016) -Continue sodium chloride 1 gram PO TID -Compression stockings -Cosyntropin stim test unremarkable with no evidence for adrenal insufficiency CHRONIC, STABLE MEDICAL CONDITIONS: Type 2 DM: Diet controlled. Last A1c 6.6%. HLD: Diet controlled. GERD: Stable, well controlled on home omeprazole. VTE Prophylaxis: Lovenox, compression stockings Code Status: Full Code Disposition: Plan is for patient to discharge home on Monday (11.14.2016) as long as patient does not have any further orthostatic symptoms over the rest of the weekend. - Problems/Diagnosis (1) Syncope Problem: Acute (2) Orthostatic hypotension Problem: Chronic
[2016-11-13] MEDS: ENOXAPARIN SODIUM 40 MG/0.4 ML SYRG SC SCH (15:11)
[2016-11-14] MEDS: MIDODRINE HCL 2.5 MG TABLET PO SCH ×3 (07:15→17:00)
[2016-11-14] MEDS: PANTOPRAZOLE SODIUM 20 MG TABLET.DR PO SCH (07:31)
[2016-11-14] MEDS: POTASSIUM CHLORIDE 20 MEQ TABLET.SA PO SCH (09:16)
[2016-11-14] MEDS: ASPIRIN 81 MG TAB.CHEW PO SCH (09:16)
[2016-11-14] MEDS: DOCUSATE SODIUM 100 MG CAPSULE PO SCH (09:16)
[2016-11-14] MEDS: MULTIVITAMINS 1 CAP CAPSULE PO SCH (09:16)
[2016-11-14] MEDS: CYANOCOBALAMIN 1,000 MCG TABLET PO SCH (09:17)
[2016-11-14] MEDS: SODIUM CHLORIDE 1 GM TABLET PO SCH ×3 (09:17→17:00)
[2016-11-14] MEDS: FLUDROCORTISONE ACETATE 0.1 MG TABLET PO SCH (11:20)
--- NOTE | 2016-11-14 11:37 | PN ---
Subjective - Date and Time Seen Date: 11/14/16 Time: 07:30 Subjective Narrative: Patient seen and examined at bedside this AM. Patient had a syncopal episode around 1100PM last night. Otherwise, this AM she is feeling well. Objective - Review of Systems Generalized/Overall Review: Reports: Fatigue EENTM: Reports: No Symptoms Reported Respiratory: Reports: No Symptoms Reported Cardiac: Reports: Syncope Abdominal: Reports: No Symptoms Reported Genitourinary Symptoms: Reports: No Symptoms Reported Musculoskeletal Complaints: Reports: No Symptoms Reported Neurological: Reports: No Symptoms Reported Skin: Reports: No Symptoms Reported Endocrine: Reports: No Symptoms Reported Misc: All systems neg except as marked - Vitals Vitals: Last Vital Signs Temp 36.7 C 11/14/16 08:03 Pulse 77 11/14/16 08:06 Resp 16 11/14/16 08:03 BP 178/48 11/14/16 08:03 Pulse Ox 97 11/14/16 08:03 - Exam Constitutional: Present: Alert, Oriented x3, Cooperative, Well developed, Well nourished, No distress, Elderly ENT Exam: Present: hearing grossly normal, moist mucous membranes Respiratory: Present: lungs clear, normal breath sounds, no respiratory distress , no accessory muscle use Cardiovascular/Chest: Present: regular rate, rhythm, edema - trace Abdomen: Present: soft, nontender, nondistended Extremity: Present: non-tender, normal inspection, lower extremity edema - trace Skin Exam: Present: warm/dry, no cyanosis Neurologic: Present: no motor/sensory deficits, alert, normal mood/affect, oriented x 3 Appearance: Present: appropriate appearance, appropriate insight, neat, no memory impairment Eye contact: Present: cooperative, good eye contact, normal speech Thoughts: Present: normal thought pattern, no apparent hallucination Assessment/Plan Plan Narrative: IMPRESSION & PLAN: Syncope secondary to uncontrolled orthostatic hypotension -Monitor vitals q4h WHILE AWAKE. Complete orthostatic vital signs with each vital check but not until at least 10-15 minutes after she has received her first dose of Midodrine each morning. -Medications adjusted today as patient continues to have pre-syncopal/ syncopal episodes. -Change Midodrine to 5mg QID. Patient to receive a 5mg dose at 0800, 1100, 1400, 1700 daily. -Start Florinef 0.05mg PO daily -Continue sodium chloride 1 gram PO TID -Compression stockings -Cosyntropin stim test unremarkable with no evidence for adrenal insufficiency CHRONIC, STABLE MEDICAL CONDITIONS: Type 2 DM: Diet controlled. Last A1c 6.6%. HLD: Diet controlled. GERD: Stable, well controlled on home omeprazole. VTE Prophylaxis: Lovenox, compression stockings Code Status: Full Code Disposition: Patient with another syncopal episodes overnight. Patient unsafe to discharge home today. Medication adjustments made today. Continue to monitor patient and hopefully she will be medically stable for discharge in the next 1- 2 days. - Problems/Diagnosis (1) Syncope Problem: Acute (2) Orthostatic hypotension Problem: Chronic
[2016-11-14] MEDS: ENOXAPARIN SODIUM 40 MG/0.4 ML SYRG SC SCH (14:59)
[2016-11-15 06:09] LABS: Anion Gap 11.7 mmol/L (6.8-13.8); BUN/Creatinine Ratio 13.5 (9.0-21.6); Calcium * 8.6 mg/dL (7.9-10.9); Carbon Dioxide 28.5 mmol/L (24-32.6); Potassium 4.2 mmol/L (3.4-4.6)
[2016-11-15] MEDS: PANTOPRAZOLE SODIUM 20 MG TABLET.DR PO SCH (07:10)
[2016-11-15] MEDS: MIDODRINE HCL 2.5 MG TABLET PO SCH ×4 (07:12→16:35)
[2016-11-15] MEDS: ASPIRIN 81 MG TAB.CHEW PO SCH (08:24)
[2016-11-15] MEDS: POTASSIUM CHLORIDE 20 MEQ TABLET.SA PO SCH (08:25)
[2016-11-15] MEDS: SODIUM CHLORIDE 1 GM TABLET PO SCH ×3 (08:25→16:35)
[2016-11-15] MEDS: CYANOCOBALAMIN 1,000 MCG TABLET PO SCH (08:25)
[2016-11-15] MEDS: MULTIVITAMINS 1 CAP CAPSULE PO SCH (08:26)
[2016-11-15] MEDS: DOCUSATE SODIUM 100 MG CAPSULE PO SCH (08:26)
[2016-11-15] MEDS: FLUDROCORTISONE ACETATE 0.1 MG TABLET PO SCH (08:39)
--- NOTE | 2016-11-15 13:03 | PN ---
Subjective - Date and Time Seen Date: 11/15/16 Time: 13:00 Subjective Narrative: Patient seen and examined at bedside. Patient denies any episodes overnight. She states that she is actually feeling very well today and she denies any new issues or concerns. Objective - Review of Systems Generalized/Overall Review: Reports: No Symptoms Reported EENTM: Reports: No Symptoms Reported Respiratory: Reports: No Symptoms Reported Cardiac: Reports: No Symptoms Reported Abdominal: Reports: No Symptoms Reported Genitourinary Symptoms: Reports: No Symptoms Reported Musculoskeletal Complaints: Reports: No Symptoms Reported Neurological: Reports: No Symptoms Reported Skin: Reports: No Symptoms Reported Endocrine: Reports: No Symptoms Reported Misc: All systems neg except as marked - Vitals Vitals: Last Vital Signs Temp 36.7 C 11/15/16 11:36 Pulse 70 11/15/16 11:36 Resp 18 11/15/16 11:36 BP 155/87 11/15/16 11:36 Pulse Ox 96 11/15/16 11:36 - Abnormal Lab Findings Abnormal Lab Findings: Abnormal Lab Results 11/15/16 Range/Units 05:15 Random Glucose 117 H (70-110) mg/dL - Exam Constitutional: Present: Alert, Oriented x3, Cooperative, Well developed, Well nourished, No distress, Elderly ENT Exam: Present: hearing grossly normal, moist mucous membranes Respiratory: Present: lungs clear, normal breath sounds, no respiratory distress , no accessory muscle use Cardiovascular/Chest: Present: regular rate, rhythm, no JVD, no murmur Abdomen: Present: soft, nontender, nondistended Skin Exam: Present: warm/dry, no cyanosis Neurologic: Present: no motor/sensory deficits, alert, normal mood/affect, oriented x 3 Appearance: Present: appropriate appearance, appropriate insight, neat, no memory impairment Eye contact: Present: cooperative, good eye contact, normal speech Thoughts: Present: normal thought pattern, no apparent hallucination Assessment/Plan Plan Narrative: IMPRESSION & PLAN: Syncope secondary to uncontrolled orthostatic hypotension -Monitor vitals q4h WHILE AWAKE. Complete orthostatic vital signs with each vital check but not until at least 10-15 minutes after she has received her first dose of Midodrine each morning. -Medications adjusted yesterday. -Continue Midodrine 5mg QID. Patient to receive a 5mg dose at 0800, 1100, 1400, 1700 daily. -Continue Florinef 0.05mg PO daily -Continue sodium chloride 1 gram PO TID -Compression stockings -Cosyntropin stim test unremarkable with no evidence for adrenal insufficiency CHRONIC, STABLE MEDICAL CONDITIONS: Type 2 DM: Diet controlled. Last A1c 6.6%. HLD: Diet controlled. GERD: Stable, well controlled on home omeprazole. VTE Prophylaxis: Lovenox, compression stockings Code Status: Full Code Disposition: Plan is to discharge patient home in the AM as long as she does not have any syncopal events over the next ~24 hours. - Problems/Diagnosis (1) Syncope Problem: Acute (2) Orthostatic hypotension Problem: Chronic
[2016-11-15] MEDS: ENOXAPARIN SODIUM 40 MG/0.4 ML SYRG SC SCH (16:35)
[2016-11-16] MEDS: PANTOPRAZOLE SODIUM 20 MG TABLET.DR PO SCH (06:36)
[2016-11-16] MEDS: MIDODRINE HCL 2.5 MG TABLET PO SCH ×4 (08:12→17:00)
[2016-11-16] MEDS: POTASSIUM CHLORIDE 20 MEQ TABLET.SA PO SCH (08:14)
[2016-11-16] MEDS: SODIUM CHLORIDE 1 GM TABLET PO SCH ×3 (08:14→18:01)
[2016-11-16] MEDS: MULTIVITAMINS 1 CAP CAPSULE PO SCH (08:15)
[2016-11-16] MEDS: ASPIRIN 81 MG TAB.CHEW PO SCH (08:16)
[2016-11-16] MEDS: DOCUSATE SODIUM 100 MG CAPSULE PO SCH (08:17)
[2016-11-16] MEDS: FLUDROCORTISONE ACETATE 0.1 MG TABLET PO SCH (08:18)
[2016-11-16] MEDS: CYANOCOBALAMIN 1,000 MCG TABLET PO SCH (08:19)
--- NOTE | 2016-11-16 09:48 | PN ---
Subjective - Date and Time Seen Date: 11/16/16 Time: 09:47 Subjective Narrative: Patient seen and examined at bedside. Patient denies any episodes overnight. She states that she is actually feeling very well today and she denies any new issues or concerns. Objective - Review of Systems Generalized/Overall Review: Reports: Weakness, Fatigue EENTM: Reports: No Symptoms Reported Respiratory: Reports: No Symptoms Reported Cardiac: Reports: No Symptoms Reported Abdominal: Reports: No Symptoms Reported Genitourinary Symptoms: Reports: No Symptoms Reported Musculoskeletal Complaints: Reports: No Symptoms Reported Neurological: Reports: No Symptoms Reported Skin: Reports: No Symptoms Reported Endocrine: Reports: No Symptoms Reported Misc: All systems neg except as marked - Vitals Vitals: Last Vital Signs Temp 36.5 C 11/16/16 08:50 Pulse 66 11/16/16 08:50 Resp 12 11/16/16 08:50 BP 188/54 11/16/16 08:50 Pulse Ox 97 11/16/16 08:50 - Exam Constitutional: Present: Alert, Oriented x3, Cooperative, Well developed, Well nourished, No distress, Elderly ENT Exam: Present: hearing grossly normal, moist mucous membranes Respiratory: Present: lungs clear, normal breath sounds, no respiratory distress , no accessory muscle use Cardiovascular/Chest: Present: regular rate, rhythm, no murmur, edema - trace Abdomen: Present: soft, nontender, nondistended Extremity: Present: normal range of motion, non-tender, normal inspection, no calf tenderness, lower extremity edema - trace Skin Exam: Present: warm/dry, no cyanosis Neurologic: Present: no motor/sensory deficits, alert, normal mood/affect, oriented x 3 Appearance: Present: appropriate appearance, appropriate insight, neat, no memory impairment Eye contact: Present: cooperative, good eye contact, normal speech Thoughts: Present: normal thought pattern, no apparent hallucination Assessment/Plan Plan Narrative: IMPRESSION & PLAN: Syncope secondary to uncontrolled orthostatic hypotension -Monitor vitals q4h WHILE AWAKE. Complete orthostatic vital signs with each vital check but not until at least 10-15 minutes after she has received her first dose of Midodrine each morning. -Medications adjusted yesterday. -Continue Midodrine 5mg QID. Patient to receive a 5mg dose at 0800, 1100, 1400, 1700 daily. -Continue Florinef 0.05mg PO daily -Continue sodium chloride 1 gram PO TID -Compression stockings -Cosyntropin stim test unremarkable with no evidence for adrenal insufficiency CHRONIC, STABLE MEDICAL CONDITIONS: Type 2 DM: Diet controlled. Last A1c 6.6%. HLD: Diet controlled. GERD: Stable, well controlled on home omeprazole. VTE Prophylaxis: Lovenox, compression stockings Code Status: Full Code Disposition: Plan is to discharge patient home in the AM as long as she does not have any syncopal events over the next ~24 hours. - Problems/Diagnosis (1) Syncope Problem: Acute (2) Orthostatic hypotension Problem: Chronic
[2016-11-16] MEDS: ENOXAPARIN SODIUM 40 MG/0.4 ML SYRG SC SCH (15:32)
[2016-11-17] MEDS: PANTOPRAZOLE SODIUM 20 MG TABLET.DR PO SCH (06:57)
[2016-11-17] MEDS: MIDODRINE HCL 2.5 MG TABLET PO SCH ×4 (07:49→17:07)
[2016-11-17] MEDS: DOCUSATE SODIUM 100 MG CAPSULE PO SCH (08:31)
[2016-11-17] MEDS: CYANOCOBALAMIN 1,000 MCG TABLET PO SCH (08:32)
[2016-11-17] MEDS: MULTIVITAMINS 1 CAP CAPSULE PO SCH (08:32)
[2016-11-17] MEDS: POTASSIUM CHLORIDE 20 MEQ TABLET.SA PO SCH (08:32)
[2016-11-17] MEDS: ASPIRIN 81 MG TAB.CHEW PO SCH (08:33)
[2016-11-17] MEDS: FLUDROCORTISONE ACETATE 0.1 MG TABLET PO SCH (08:34)
[2016-11-17] MEDS: SODIUM CHLORIDE 1 GM TABLET PO SCH ×3 (08:34→17:07)
--- NOTE | 2016-11-17 14:28 | PN ---
Subjective - Date and Time Seen Date: 11/17/16 Time: 14:17 Subjective Narrative: patient feels better, almost ready to go home. having dizziness only for a few seconds while ambulating. Objective - Review of Systems Generalized/Overall Review: Denies: Weakness, Chills, Fever Respiratory: Denies: Shortness of Breath Cardiac: Denies: Edema - Vitals Vitals: Vital Signs Temp 36.6 C 11/17/16 10:14 Pulse 66 11/17/16 10:14 Resp 16 11/17/16 10:14 BP 230/66 11/17/16 10:14 Pulse Ox 97 11/17/16 10:14 - Exam Constitutional: Present: Elderly, Obese - in no NAD ENT Exam: Present: hearing grossly normal, moist mucous membranes Respiratory: Present: lungs clear, normal breath sounds Cardiovascular/Chest: Present: regular rate, rhythm Abdomen: Present: Normal bowel sounds, soft, nontender, nondistended Skin Exam: Present: normal color, warm/dry Assessment/Plan Plan Narrative: Syncope secondary to uncontrolled orthostatic hypotension Patient doing well on Midodrine 5mg QID. Patient receives 5mg 0800, 1100, 1400, 1700 daily and Florinef 0.05mg PO daily Compression stockings Adrenal insufficiency ruled out by negative cosyntropin test. UPEP and SPEP negative. CHRONIC, STABLE MEDICAL CONDITIONS: GERD: Stable, well controlled on home omeprazole. Type 2 DM: Diet controlled. Last A1c 6.6%. HLD: Diet controlled. Obesity: BMI - 31.0. VTE Prophylaxis: Lovenox, compression stockings Code Status: Full Code Disposition: possible D/C in AM. - Problems/Diagnosis (1) Syncope Problem: Acute (2) Orthostatic hypotension Problem: Chronic
[2016-11-17] MEDS: ENOXAPARIN SODIUM 40 MG/0.4 ML SYRG SC SCH (16:23)
[2016-11-18] MEDS: MIDODRINE HCL 2.5 MG TABLET PO SCH ×2 (07:13→10:28)
[2016-11-18] MEDS: PANTOPRAZOLE SODIUM 20 MG TABLET.DR PO SCH (07:13)
[2016-11-18] MEDS: SODIUM CHLORIDE 1 GM TABLET PO SCH (08:13)
[2016-11-18] MEDS: MULTIVITAMINS 1 CAP CAPSULE PO SCH (08:13)
[2016-11-18] MEDS: POTASSIUM CHLORIDE 20 MEQ TABLET.SA PO SCH (08:13)
[2016-11-18] MEDS: DOCUSATE SODIUM 100 MG CAPSULE PO SCH (08:13)
[2016-11-18] MEDS: FLUDROCORTISONE ACETATE 0.1 MG TABLET PO SCH (08:13)
[2016-11-18] MEDS: ASPIRIN 81 MG TAB.CHEW PO SCH (08:13)
[2016-11-18] MEDS: CYANOCOBALAMIN 1,000 MCG TABLET PO SCH (08:13)
[2016-11-18 08:20] VITALS: BP 131/44
--- NOTE | 2016-11-18 10:01 | DS ---
(1) Syncopal episodes Problem: Acute (2) Diabetes Problem: Chronic Qualifiers: Diabetes mellitus type: type 2 (3) GERD (gastroesophageal reflux disease) Problem: Chronic (4) HLD (hyperlipidemia) Problem: Chronic (5) Orthostatic hypotension Problem: Chronic Description of Stay: Date of admission: 11/01/16 Date of discharge: 11/18/16 Description of Stay: Valentina is a 81 year old female who was directly admitted to the unit from Dr. Carlson's office after having 3 syncopal episodes in one day. Patient has a history of orthostatic hypotension but she had not had a full syncopal episode in the past. On 11/01/16, she was started on florinef 0.1 mg daily and NaCl tabs 1 gm TID with compression stockings. on 11/02/16, patient was clinically stable, meds remained the same and a cosyntropin stimulation test was ordered. on , patient was observed to have marked orthostatic hypotension with a drop in SBP of >100 mmHg - same meds continued. on 11/04/16, patient experienced a presyncopal episode, florinef was stopped and midodrine was started at 5 mg TID. NaCl was continued at same dose. Cosyntropin stimulation test was negative for adrenal insufficiency. on 11/05/16, patient still with severe orthostatsis, same meds continued. on 11/06/16, patient still with severe orthostatsis but improving. on 11/07/16 and 11/08/16, patient continued to improve, same medications were continued and patient was monitored closely. on , patient had a presyncopal episode the night before. midodrine was increased to 10 mg tid, NaCl was continued at same dose. on 11/10/16 through , the patient continued to have dizziness intermittently and was felt not safe to go home - she was continued on same dose of midodrine and monitored closely. on 11/14/16, patient had a syncopal episode the night before. midodrine was decreased to 5 mg QID and florinef was started at 0.05 mg daily. same dose continued on NaCl tabs. on 11/15/16 and 11/16/16, patient was asymptomatic, observed and continued on the same meds. on 11/17/16, the patient had mild dizziness for 1-2 seconds when walking, same meds for continued and she was observed for another day. on 11/18/16, patient was asymptomatic and felt stable to go home. New Medications: - Florinef 0.05 mg Daily - Midodrine 5 mg QID at 8 am, 11 am, 2 pm and 5 pm - KCl 20 mEq Daily - NaCl tabs 1 gm TID BMP to be drawn outpatient in 1 week. Procedures Performed: none Discharge Disposition: Home self care Disposition: Home self-care Condition: Undetermined Discharge Activity: Activity as tolerated Discharge Diet: General/regular food, Other - Push water. Referrals: Kathi Carlson DO [Primary Care Provider] - Problem Oriented Discharge Instructions to Patient/Family: Orthostatic Hypotension Additional Patient Instructions (free text): Push fluids - water!! Take midodrine and florinef exactly as prescribed. Follow up with Dr. Carlson on 11-29-16 at 11:00am. Prescriptions (Any new or edited meds): Fludrocortisone Acetate [Florinef] 0.05 mg PO DAILY #30 tablet Midodrine HCl [Proamatine] 5 mg PO 0800,1100,1400,1700 #120 tablet Sodium Chloride 1 gm PO TID #90 tablet Complete Home Medications List: Complete Home Medication List: Aspirin [Aspirin Chewable] 81 mg PO DAILY 03/18/15 Cyanocobalamin [Vitamin B-12] 1,000 mcg PO DAILY 03/18/15 Docusate Sodium [Doc-Q-Lace] 100 mg PO DAILY 03/18/15 Multivitamin [One Daily Essential] 1 each PO DAILY 08/24/16 Omeprazole [Prilosec] 20 mg PO DAILY 08/24/16 Potassium Chloride [K-Dur] 20 meq PO DAILY #30 tablet.sa 10/20/16 Sodium Chloride 1 gm PO TID 11/01/16 Fludrocortisone Acetate [Florinef] 0.05 mg PO DAILY #30 tablet 11/18/16 Midodrine HCl [Proamatine] 5 mg PO 0800,1100,1400,1700 #120 tablet 11/18/16 Sodium Chloride 1 gm PO TID #90 tablet 11/18/16
== END 2016-11-18 12:15 | disposition home or self-care (01) | DRG 312 ==
LOC: MS 15:17
PROVIDERS: ADMIT Internal Medicine; ATTEND Internal Medicine
DX: I95.1 Orthostatic hypotension (principal); E78.5 Hyperlipidemia, unspecified; E11.9 Type 2 diabetes mellitus without complications; Z79.82 Long term (current) use of aspirin

== ENCOUNTER 2017-02-25 18:28 | Emergency (ER) | payer MEDICARE, OTHER ==
--- NOTE | 2017-02-25 19:15 | ERNOTE ---
Syncope ER HPI Stated Complaint: FALLING Source: patient, family Exam Limitations: no limitations Immunizations: IMMUNIZATION HX Immunizations Up to Date Yes History of Influenza Vaccine Yes Hx Pneumococcal Vaccination Yes Allergies/Adverse Reactions: Allergies azithromycin [From Zithromax] Allergy (Mild, Verified 08/24/16 10:43) Hives citalopram Allergy (Verified 10/26/16 13:10) erythromycin base [Erythromycin Base] Adverse Reaction (Mild, Verified 08/24/16 10:43) NAUSEA, VOMITING Home Medications: HOME MEDICATIONS Cyanocobalamin [Vitamin B-12] 1,000 mcg PO DAILY 03/18/15 [Last Taken 11/01/16] Omeprazole [Prilosec] 40 mg PO DAILY 08/24/16 [Last Taken 11/01/16] Potassium Chloride [K-Dur] 20 meq PO DAILY #30 tablet.sa 10/20/16 [Last Taken ] Aspirin 81 mg PO DAILY 02/25/17 [Last Taken Unknown] Atorvastatin Calcium 10 mg PO HS 02/25/17 [Last Taken Unknown] Docusate Sodium [Doc-Q-Lace] 100 mg PO DAILY 02/25/17 [Last Taken Unknown] Midodrine HCl [Proamatine] 5 mg PO TID 02/25/17 [Last Taken Unknown] Multivitamin [Multivitamins] 1 each PO DAILY 02/25/17 [Last Taken Unknown] Pyridostigmine [place] [Mestinon] 30 mg PO TID 02/25/17 [Last Taken Unknown] - History of Present Illness Narrative: Patient has a history of recurrent syncopal episodes since March 2016. She was hospitalized here in 10/2016 for over two weeks had her medications adjusted and felt better for a while, had recurrent syncopal episodes and was admitted and evaluated at the [facility] about a month ago without clear diagnosis. She had less frequent episodes for a while but symptoms have been increasing since. She passed out at least four times today, does not feel the syncope coming, has fallen and hit her left arm and back, minimal pain, no limitation in movement. Prior Episodes: Present: multiple episodes today Symptoms prior to episode: Present: none Character of event: Present: brief (seconds) Location of Injury: Present: back, LUE Current Symptoms: Present: back to normal Prior Treament: Reports: recently seen, similar symptoms before Review of Systems - Review of Systems Constitutional: Absent: recent illness, fever EYE: Absent: double vision ENT: Absent: nose congestion Respiratory: Absent: shortness of breath Cardiology: Absent: chest pain Gastrointestinal/Abdominal: Absent: nausea, vomiting, abdominal pain Genitourinary: Present: no symptoms reported Musculoskeletal: Absent: back pain, neck pain Skin: Absent: rash Neurological: Absent: headache, weakness, numbness - Patient's Past Medical History Patient History - Medical: GERD, Osteoarthritis Patient History - Cardiac/Respiratory: Hyperlipidemia, Other - recurrent syncopal episodes unexplained Patient History - Cancer: Chemotherapy history, Ovarian Patient History - Surgical Procedures: Cataracts, Colonoscopy, Hysterectomy, Other Patient History - Other: Immunosuppresive Tx >3mo - Family History Brother Family History - Medical: Family History - Cardiac/Respiratory: Myocardial Infarction Father Family History - Medical: Mother Family History - Medical: , Diabetes Type 2 Insulin Dependent Sister Family History - Cardiac/Respiratory: Myocardial Infarction - Social History Living Situations: alone Abuse History: No History of abuse Psych History: Hx of Depression Does anyone smoke in the home?: No Smoking Status: Never smoker Alcohol Use: none Drug Use: none - Immunizations Immunizations Up to Date: Yes Hx Pneumococcal Vaccination: Yes History of Influenza Vaccine: Yes Physical Exam - Physical Exam General Appearance: Present: wd/wn, alert, no apparent distress Head Exam: Present: normal inspection, no evidence of injury. Absent: no tenderness w palpation, Rodarte's Sign, contusions Eye Exam: Normal inspection: bilateral, PERRL: bilateral Ears, Nose, Throat: Present: normal ENT inspection, normal pharynx Neck: Present: normal inspection, nontender, supple, full range of motion Respiratory: Present: no respiratory distress, normal breath sounds, no accessory muscle use, chest nontender, lungs clear Cardiovascular/Chest: Present: regular rate, rhythm, no murmur Gastrointestinal/Abdominal: Present: normal bowel sounds, nontender, nondistended, soft Back Exam: Present: normal inspection, no vertebral tenderness, other - minimal tenderness paraspinal lower thoracic spine Extremity Exam: Present: normal except - - echymosis left shoulder, no significan tenderness, normal range of motion, no edema Neurological Exam: Present: alert, oriented, normal mood/affect, no motor/ sensory deficits Skin Exam: Present: normal color, warm/dry ED Progress - Results and Orders Patient's Lab Results:: I have reviewed the patient's lab results. - Vital Signs Patient's Vital Signs:: I have reviewed the patient's vital signs. Vital Signs: Vital Signs 02/25/17 18:32 Temperature 36.2 C L Pulse Rate 83 Respiratory 83 H Rate Blood Pressure 120/59 O2 Sat by Pulse 97 Oximetry - EKG EKG: NSR, unchanged from - 2008, other - no acute changes EKG read: Interp. by me - Progress/Reassessment Chief Complaint: Fall Progress Note-Subjective: 02/25/17 19:24 reviewed orthostatic vitals, blood pressure drop of 100 points systolic with standing up 02/25/17 29:55 discussed with patient and family, there might be a concern that patient does not take all medications as instructed.When daughter was filling her planer, she had not taken yesterdays morning meds. Her tid meds are in a separate bottle. 02/25/17 20:01 discussed with Stefany Norman, will discuss with Dr Glynn 02/25/17 20:39 discussed with Stefany, concern is that admitting here is not helping patient. According to notes from [facility] (which are not available to me) neurology was planing further testing, recommend transfer to [facility] 02/25/17 20:45 discussed with patient and family. They are not aware of any further pending testing, had cardiology follow up that did not change anything, agreeing to transport 02/25/17 20:49 call to [facility] 02/25/17 21:[address] Sahni ([facility]), accepted patient for transfer, no bed available for direct admission Departure Clinical Impression: Syncopal episodes Qualifiers: Syncope type: unspecified Qualified Code(s): R55 - Syncope and collapse - Departure Disposition: [facility] Condition: Stable Referrals: Kathi Carlson DO [Primary Care Provider] -
[2017-02-25 19:31] LABS: Hematocrit 35.8 % (37.0-47.0); Hemoglobin 11.7 gm/dL (12.5-16.0); Mean Corpuscular Hemoglobin 27.8 pg (27-31); Mean Corpuscular Hgb Conc 32.7 g/dl (32-36); Neutrophil # 9.2 K/mm3 (1.3-6.0); Neutrophil % 69.1 % (42-75.0); Platelet Count 353 K/mm3 (150-450); Red Blood Count 4.21 M/mm3 (4.2-5.4); Red Cell Distribution Width 13.2 % (11.5-14.0); White Blood Count 13.3 K/mm3 (4.0-10.5)
[2017-02-25 19:42] LABS: Albumin * 3.9 gm/dl (3.4-5.0); BUN/Creatinine Ratio 16.2 (9.0-21.6); Bilirubin, Total 0.3 mg/dL (0.0-1.1); Ca. Corrected For Albumin 8.7 mg/dL (8.4-10.2); Calcium * 8.9 mg/dL (7.9-10.9); Carbon Dioxide 27.3 mmol/L (24-32.6); Potassium 4.3 mmol/L (3.4-4.6); Total Protein 7.6 gm/dL (6.2-8.2)
[2017-02-25 20:55] VITALS: BP 157/83
== END 2017-02-25 21:49 | disposition short-term general hospital (02) ==
LOC: ER 18:28
DX: R55 Syncope and collapse (principal); K21.9 Gastro-esophageal reflux disease without esophagitis; M19.90 Unspecified osteoarthritis, unspecified site; E78.5 Hyperlipidemia, unspecified; Z85.43 Personal history of malignant neoplasm of ovary

== ENCOUNTER 2017-04-14 21:06 | Observation (INO) | payer MEDICARE, OTHER ==
--- NOTE | 2017-04-14 21:22 | ERNOTE ---
Trauma/Assault HPI - Narrative Date of Service: 04/14/17 - General Stated Complaint: FALL Time Seen by Provider: 04/14/17 21:21 Source: patient, EMS, old records - Immun/Allergies/Home Medications Immunizations: IMMUNIZATION HX Immunizations Up to Date Yes History of Influenza Vaccine Yes Hx Pneumococcal Vaccination Yes Allergies/Adverse Reactions: Allergies azithromycin [From Zithromax] Allergy (Mild, Verified 04/14/17 21:56) Hives citalopram Allergy (Verified 04/14/17 21:56) erythromycin base [Erythromycin Base] Adverse Reaction (Mild, Verified 04/14/17 21:56) NAUSEA, VOMITING Home Medications: HOME MEDICATIONS Cyanocobalamin [Vitamin B-12] 1,000 mcg PO DAILY 03/18/15 [Last Taken 11/01/16] Potassium Chloride [K-Dur] 20 meq PO DAILY #30 tablet.sa 10/20/16 [Last Taken ] Aspirin 81 mg PO DAILY 02/25/17 [Last Taken Unknown] Atorvastatin Calcium 10 mg PO HS 02/25/17 [Last Taken Unknown] Docusate Sodium [Doc-Q-Lace] 100 mg PO DAILY PRN 02/25/17 [Last Taken Unknown] Midodrine HCl [Proamatine] 5 mg PO TID 02/25/17 [Last Taken Unknown] Pyridostigmine Cameron [Mestinon] 60 mg PO TID 02/25/17 [Last Taken Unknown] Ferrous Gluconate 324 mg PO DAILY 04/14/17 [Last Taken Unknown] Fludrocortisone Acetate [Florinef] 0.2 mg PO DAILY 04/14/17 [Last Taken Unknown] PARoxetine HCL [Paroxetine HCl] 20 mg PO DAILY 04/14/17 [Last Taken Unknown] - History of Present Illness Date (Duration): 04/14/17 Time (Timing): 21:45 Narrative: Patient with long history of orthostatic hypotension. Has been worked up here and at [facility], without any good idea of why she continues to have this problem. She reports that she has fallen multiple times today, this last time she was unable to get up on her own. This is a chronic, ongoing issue, but she has been better, able to get back upright again, which tonight she could not. She has a granddaughter staying with her to help her out, but this time she just couldn't get up again. We tried orthostatic blood pressures here, patient was unable to get to standing because of feeling like she was going to pass out. Location Occurred: Reports: home Pain Location: Reports: lower extremity - left lateral mid thigh Method of Injury: Reports: fall Severity: mild Modifying Factors - (Improves): Reports: movement Modifying Factors - (Worsens): Reports: movement Loss of Consciousness: Reports: no loss of consciousness, dazed, remembers the event, remembers coming to hospital Associated Symptoms - Trauma: Reports: neck pain - laterally on left side, not tender midline, able to turn head left and right, muscle spasms Review of Systems - Review of Systems Constitutional: Present: recent illness - chronic with multiple work ups here and in [place] at [facility] EYE: Present: no symptoms reported ENT: Present: nasal drainage Respiratory: Absent: cough, orthopnea, wheezing Cardiology: Absent: chest pain, palpitations, syncope Gastrointestinal/Abdominal: Absent: nausea, vomiting, diarrhea, constipation, abdominal pain Genitourinary: Absent: frequency, pain, dysuria Musculoskeletal: Present: muscle pain - left neck and left thigh Skin: Present: no symptoms reported Neurological: Present: dizziness/light-headedness - with standing up, okay as long as is laying down. Absent: headache, numbness, tingling, tremors Hematologic/Lymphatic: Present: no symptoms reported - Patient's Past Medical History Patient History - Medical: Diabetes Type 2, Depression, GERD, Osteoarthritis, Other - Orthostatic Hypotension Patient History - Cardiac/Respiratory: Hyperlipidemia, Other Patient History - Cancer: Chemotherapy history, Ovarian Patient History - Surgical Procedures: Cataracts, Colonoscopy, Hysterectomy, Other Patient History - Other: Immunosuppresive Tx >3mo LMP (females 10-50): Menopausal - Family History Brother Family History - Medical: Family History - Cardiac/Respiratory: Myocardial Infarction Father Family History - Medical: Mother Family History - Medical: , Diabetes Type 2 Insulin Dependent Sister Family History - Cardiac/Respiratory: Myocardial Infarction - Social History Living Situations: other Abuse History: No History of abuse Psych History: Hx of Depression Does anyone smoke in the home?: No Smoking Status: Never smoker Have you smoked in the past 12 months: No Alcohol Use: none Drug Use: none - Immunizations Immunizations Up to Date: Yes Hx Pneumococcal Vaccination: Yes History of Influenza Vaccine: Yes Physical Exam - Physical Exam General Appearance: Present: wd/wn, alert, mild distress, attentive for age Head Exam: Present: normal inspection, no evidence of injury Eye Exam: Normal inspection: bilateral, PERRL: bilateral, EOMI: bilateral Ears, Nose, Throat: Present: normal ENT inspection Neck: Present: tender lateral - Left. Absent: limited range of motion, lymphadenopathy (R), lymphadenopathy (L), tender posterior midline Respiratory: Present: no respiratory distress, normal breath sounds, no accessory muscle use, chest nontender, lungs clear Cardiovascular/Chest: Present: regular rate, rhythm, no murmur Gastrointestinal/Abdominal: Present: normal bowel sounds, nontender, nondistended, soft Extremity Exam: Present: normal except - - left outer thigh with small ecchymosis, mildly tender to palpation Neurological Exam: Present: alert, oriented, normal mood/affect, no motor/ sensory deficits, edge worker II-XII nml as tested Skin Exam: Present: normal color, warm/dry Lymphatic Exam: Present: no adenopathy Detailed Trauma Exam Best Eye Response (Stover): (4) open spontaneously Best Verbal Response (Stover): (5) oriented Best Motor Response (Stover): (6) obeys commands Stover Total: 15 General Appearance: Present: alert, mild distress Head Injury: Present: normal inspection, no tenderness on palpate Neurological Exam: Present: alert, oriented x 4, no motor/sensory deficits, edge worker II-XII nml as tested, normal mood/affect, no motor/sensory deficit Neck Exam: Present: muscle spasm - left lateral, tenderness - left lateral. Absent: tender midline Nexus Clearance: Present: Nexus criteria negative Eye Exam: PERRL: bilateral, EOMI: bilateral ENT Exam: Present: nml ext. inspection Chest/Respiratory Exam: Present: nml inspection, chest non-tender, breath sounds nml Cardiovascular Exam: Present: regular rate, rhythm, no murmur, normal peripheral pulses - C-Spine cleared by: Neg history & exam ED Progress - Results and Orders Patient's Lab Results:: I have reviewed the patient's lab results. - Vital Signs Patient's Vital Signs:: I have reviewed the patient's vital signs. Vital Signs: Vital Signs 04/14/17 21:08 Temperature 36.1 C L Pulse Rate 78 Respiratory 22 H Rate Blood Pressure 224/97 O2 Sat by Pulse 97 Oximetry - X-Ray X-Ray #1 X-Ray: chest Interpretation: Interp. by me, Reviewed by me X-ray Comments: No cardiomegaly, no infiltrates, no bony abnormalities - Progress/Reassessment Chief Complaint: Fall Progress:: Unchanged Progress Note-Subjective: 04/14/17 23:40 Patient unable to stand without her blood pressure dropping, has fallen at least three times today. She has an elevated Lactic Acid, white blood cell count and is hypokalemic and hypocalcemic. Patient needs to be admitted to be treated for possible sepsis and orthostatic hypotension. Have started IV fluids of Normal Saline at 126 ml/hr. Patient's resting systolic blood pressure is in the 200's, but drops 30-50 points with sitting up, and she is unable to stay upright standing even with assistance. - Transfer of Care Pending Results: Labs Expected Disposition: Admit Plan - Plan Plan: I spoke with Dr. Morales about Mrs. Nguyen. We reviewed the patient's labs and chest x-ray along with the current treatment here in the ED. Dr. Morales agreed to admit the patient for observation with further evaluation of her labs and her blood pressure. Departure Clinical Impression: Orthostatic hypotension dysautonomic syndrome, Elevated lactic acid level, Neutrophilic leukocytosis, Multiple falls - Departure Disposition: [facility] Condition: Fair
[2017-04-14] MEDS ORDERED: ONDANSETRON HCL/PF 2 MG/ML VIAL ONE (21:45)
[2017-04-14] MEDS ORDERED: ONDANSETRON HCL/PF 2 MG/ML VIAL IV ONE (21:55)
[2017-04-14 22:05] LABS: Urine Bilirubin Negative (NEGATIVE); Urine Blood Negative /ul (NEGATIVE); Urine Ketone 15 mg/dL (NEGATIVE); Urine Nitrite Negative (NEGATIVE); Urine Protein Negative (NEGATIVE); Urine Specific Gravity 1.015 SP.GR. (1.005-1.010); Urine Urobilinogen Normal (NORMAL)
[2017-04-14 22:20] LABS: Urine Appearance Clear; Urine Bacteria 1+; Urine Color Yellow; Urine RBC TRACE /hpf (0-5); Urine WBC TRACE /hpf (0-5)
[2017-04-14 22:23] LABS: Hematocrit 34.8 % (37.0-47.0); Hemoglobin 11.5 gm/dL (12.5-16.0); Mean Cell Volume 84.3 fl (78-100); Mean Corpuscular Hemoglobin 27.8 pg (27-31); Mean Platelet Volume 9.9 fl (6.0-9.5); Neutrophil # 10.7 K/mm3 (1.3-6.0); Neutrophil % 76.3 % (42-75.0); Platelet Count 305 K/mm3 (150-450); Red Blood Count 4.13 M/mm3 (4.2-5.4); Red Cell Distribution Width 13.8 % (11.5-14.0)
[2017-04-14 22:43] LABS: Albumin * 3.5 gm/dl (3.4-5.0); Anion Gap 18.1 mmol/L (6.8-13.8); BUN/Creatinine Ratio 10.5 (9.0-21.6); Bilirubin, Total 0.5 mg/dL (0.0-1.1); Ca. Corrected For Albumin 7.7 mg/dL (8.4-10.2); Calcium * 7.6 mg/dL (7.9-10.9); Carbon Dioxide 22.9 mmol/L (24-32.6); Total Protein 7.1 gm/dL (6.2-8.2)
[2017-04-14] MEDS: SODIUM CHLORIDE IV PRN (23:18)
[2017-04-15] MEDS ORDERED: POTASSIUM CHLORIDE 20 MEQ TABLET.SA PO ONE (00:18)
[2017-04-15] MEDS ORDERED: POTASSIUM CHLORIDE 20 MEQ TABLET.SA ONE (00:19)
[2017-04-15] MEDS ORDERED: ACETAMINOPHEN 325 MG TABLET ONE (00:32)
[2017-04-15] MEDS ORDERED: ACETAMINOPHEN 325 MG TABLET PO ONE ×2 (00:32→07:39)
[2017-04-15] MEDS ORDERED: ONDANSETRON HCL/PF 2 MG/ML VIAL IV PRN (02:17)
--- NOTE | 2017-04-15 05:51 | HP ---
Chief Complaint - Chief Complaint Date of Service: 04/15/17 Time of Service: 02:00 Chief Complaint: Falls, syncope, orthostatic hypotension History of Present Illness: 81 years old female adm to the hospital from ER with reports of frequent falls, syncope and unable to stand without feeling like she is going to faint. PMH significant for orthostatic hypotension,. Pt is familiar to our service with long standing history of orthostatic hypotension.she was recently discharge from the [facility] for similar complaints. she had been fully worked up in the past here at [facility] and [facility]. She had vestibular rehab, seen by neurologist and ENT, opthalomologist without identification etiology or improvement of s/s. In ER lactic acid 3.4--->4.7 and ABG noted. lactic acid elevated probable due to hyperventilating while on med-surg. WBC 14.0 without source of infection. Potassium 3.0 supplemented. While on med-surg pt report forgetfulness, disoriented, blurred vision, unable to focus and ocular motor dysfunction. Pt is able to have conversations for a few minutes then most of the time disoriented. CT head no acute intracranial abnormality.Discussed case with Dr. Carlson and Dr Ingram at the [facility], she agree to have pt transfer to the ER. - Patient's Past Medical History Patient History - Medical: Diabetes Type 2, Depression, GERD, Osteoarthritis, Other Patient History - Cardiac/Respiratory: Hyperlipidemia, Other Patient History - Cancer: Chemotherapy history, Ovarian Patient History - Surgical Procedures: Cataracts, Colonoscopy, Hysterectomy, Other Patient History - Other: Immunosuppresive Tx >3mo LMP (females 10-50): Menopausal - Family History Brother Family History - Medical: Family History - Cardiac/Respiratory: Myocardial Infarction Father Family History - Medical: Mother Family History - Medical: , Diabetes Type 2 Insulin Dependent Sister Family History - Cardiac/Respiratory: Myocardial Infarction - Social History Living Situations: home Abuse History: No History of abuse Psych History: Hx of Depression Does anyone smoke in the home?: No Smoking Status: Never smoker Have you smoked in the past 12 months: No Alcohol Use: none Drug Use: none - Immunizations Immunizations Up to Date: Yes Hx Pneumococcal Vaccination: Yes History of Influenza Vaccine: Yes Review Of Systems (GEN) - Review of Systems Generalized/Overall Review: Present: Weakness, Malaise EENTM: Present: Blurred Vision Respiratory: Present: No Symptoms Reported Cardiac: Present: No Symptoms Reported Abdominal: Present: No Symptoms Reported Genitourinary: Present: No Symptoms Reported Musculoskeletal: Present: Joint Pain Neurological: Present: Anxiety, Tremors, Weakness Skin: Present: No Symptoms Reported Endocrine: Present: No Symptoms Reported Immunizations: IMMUNIZATION HX Immunizations Up to Date Yes History of Influenza Vaccine Yes Hx Pneumococcal Vaccination Yes Allergies/Adverse Reactions: Allergies Allergy/AdvReac Type Severity Reaction Status Date / Time azithromycin [From Zithromax] Allergy Mild Hives Verified 04/14/17 21:56 citalopram Allergy Verified 04/14/17 21:56 erythromycin base AdvReac Mild NAUSEA, Verified 04/14/17 21:56 [Erythromycin Base] VOMITING Home Medications: HOME MEDICATIONS Cyanocobalamin [Vitamin B-12] 1,000 mcg PO DAILY 03/18/15 [Last Taken 11/01/16] Potassium Chloride [K-Dur] 20 meq PO DAILY #30 tablet.sa 10/20/16 [Last Taken ] Aspirin 81 mg PO DAILY 02/25/17 [Last Taken Unknown] Atorvastatin Calcium 10 mg PO HS 02/25/17 [Last Taken Unknown] Docusate Sodium [Doc-Q-Lace] 100 mg PO DAILY PRN 02/25/17 [Last Taken Unknown] Midodrine HCl [Proamatine] 5 mg PO TID 02/25/17 [Last Taken Unknown] Pyridostigmine Jenners [Mestinon] 60 mg PO TID 02/25/17 [Last Taken Unknown] Ferrous Gluconate 324 mg PO DAILY 04/14/17 [Last Taken Unknown] Fludrocortisone Acetate [Florinef] 0.2 mg PO DAILY 04/14/17 [Last Taken Unknown] PARoxetine HCL [Paroxetine HCl] 20 mg PO DAILY 04/14/17 [Last Taken Unknown] Exam - Exam Vital Signs: Vital Signs - Last Taken Temp 36.7 C 04/15/17 01:06 Pulse 87 04/15/17 02:09 Resp 18 04/15/17 01:06 BP 108/84 04/15/17 01:06 Pulse Ox 98 04/15/17 01:06 Constitutional: Present: Cooperative, Well developed, Mild distress, Elderly ENT Exam: Present: normal ENT inspection Eye Exam: bilateral eye: normal inspection Neck: Present: full range of motion Back Exam: Present: normal inspection Breasts: Present: Exam deferred Respiratory: Present: chest non-tender, normal breath sounds, other - hyperventilating Cardiovascular/Chest: Present: normal peripheral pulses, regular rate, rhythm, no chest tenderness Peripheral Pulses: dorsalis-pedis (R): 3+, dorsalis-pedis (L): 3+ Abdomen: Present: Normal bowel sounds, soft /Rectal: Present: Exam deferred Extremity: Present: normal range of motion, normal inspection Skin Exam: Present: normal color, warm/dry Lymphatic: Present: no adenopathy Neurologic: Present: abnormal cerebellar tests, motor weakness, sensory deficit , disoriented x 3 Appearance: Present: appropriate appearance Thoughts: Present: flight of ideas Diagnostic Studies: Abnormal Lab Results 04/15/17 04/15/17 Range/Units 01:48 05:13 pCO2 Less than 14.9 L* (32.0-45.0) mmHg pO2 74.8 L (83.0-108.0) mmHg HCO3 12.2 L (21.0-28.0) mmol/L Total CO2 12.6 L (19.0-24.0) mmol/L Base Excess -8.8 L (-2.0-3.0) mmol/L ABG pH 7.54 H (7.35-7.45) Lactic Acid, Venous 4.7 H* (0.4-1.9) mmol/L Laboratory Results WBC 14.0 K/mm3 (4.0-10.5) H 04/14/17 22:20 RBC 4.13 M/mm3 (4.2-5.4) L 04/14/17 22:20 Hgb 11.5 gm/dL (12.5-16.0) L 04/14/17 22:20 Hct 34.8 % (37.0-47.0) L 04/14/17 22:20 MCV 84.3 fl (78-100) 04/14/17 22:20 MCH 27.8 pg (27-31) 04/14/17 22:20 MCHC 33.0 g/dl (32-36) 04/14/17 22:20 RDW 13.8 % (11.5-14.0) 04/14/17 22:20 Plt Count 305 K/mm3 (150-450) 04/14/17 22:20 MPV 9.9 fl (6.0-9.5) H 04/14/17 22:20 Immature Gran % (Auto) 0.40 % (0.001-0.429) 04/14/17 22:20 Immature Gran # (Auto) 0.06 K/mm3 (0.000-0.0310) H 04/14/17 22:20 Neutrophils % 76.3 % (42-75.0) H 04/14/17 22:20 Lymphocytes % 16.2 % (20-51) L 04/14/17 22:20 Monocytes % 6.3 % (0.0-9) 04/14/17 22:20 Eosinophils % 0.4 % (0.0-3.0) 04/14/17 22: Basophils % 0.4 % (0.0-1.0) 04/14/17 22: Nucleated RBC % 0.0 k/mm3 (0-1) 04/14/17 22:20 Neutrophils # 10.7 K/mm3 (1.3-6.0) H 04/14/17 22:20 Lymphocytes # 2.3 k/mm3 (1.5-3.5) 04/14/17 22:20 Monocytes # 0.9 k/mm3 (0.0-1.0) 04/14/17 22:20 Eosinophils # 0.1 k/mm3 (0.0-0.7) 04/14/17 22:20 Absolute Basophils 0.1 k/mm3 (0.0-0.1) 04/14/17 22:20 pCO2 Less than 14.9 mmHg (32.0-45.0) L* 04/15/17 05:13 pO2 74.8 mmHg (83.0-108.0) L 04/15/17 05:13 HCO3 12.2 mmol/L (21.0-28.0) L 04/15/17 05:13 Total CO2 12.6 mmol/L (19.0-24.0) L 04/15/17 05:13 Base Excess -8.8 mmol/L (-2.0-3.0) L 04/15/17 05:13 ABG pH 7.54 (7.35-7.45) H 04/15/17 05:13 ABG O2 Sat (Measured) 96.9 % (94.0-98.0) 04/15/17 05:13 Sodium 139 mmol/L (132-142) 04/14/17 22:20 Plasma Sodium 140 mmol/L (130-142) 04/14/17 22:20 Potassium 3.0 mmol/L (3.4-4.6) L D 04/14/17 22:20 Chloride 101 mmol/L (97-106) 04/14/17 22:20 Carbon Dioxide 22.9 mmol/L (24-32.6) L 04/14/17 22:20 Anion Gap 18.1 mmol/L (6.8-13.8) H 04/14/17 22:20 BUN 12 mg/dL (3-23) 04/14/17 22:20 Creatinine 1.14 mg/dL (0.4-1.4) 04/14/17 22:20 Est GFR (Non-Af Amer) 49 mL/min (60-130) L D 04/14/17 22:20 BUN/Creatinine Ratio 10.5 (9.0-21.6) 04/14/17 22:20 Random Glucose 188 mg/dL (70-110) H D 04/14/17 22:20 Lactic Acid, Venous 4.7 mmol/L (0.4-1.9) H* 04/15/17 01:48 Calcium 7.6 mg/dL (7.9-10.9) L 04/14/17 22:20 Calcium Adj for Albumin 7.7 mg/dL (8.4-10.2) L 04/14/17 22:20 Total Bilirubin 0.5 mg/dL (0.0-1.1) 04/14/17 22:20 AST 14 U/L (0-48) 04/14/17 22:20 ALT 14 U/L (19-67) L 04/14/17 22:20 Alkaline Phosphatase 61 U/L (50-170) 04/14/17 22:20 Total Protein 7.1 gm/dL (6.2-8.2) 04/14/17 22:20 Albumin 3.5 gm/dl (3.4-5.0) 04/14/17 22:20 Urine Color Yellow 04/14/17 21:50 Urine Appearance Clear 04/14/17 21:50 Urine pH 7.0 pH (5.0-7.0) 04/14/17 21:50 Ur Specific Tate 1.015 SP.GR. (1.005-1.010) 04/14/17 21:50 Urine Protein Negative mg/dL (NEGATIVE) 04/14/17 21:50 Urine Glucose (UA) Negative mg/dL (NEGATIVE) 04/14/17 21:50 Urine Ketones 15 mg/dL (NEGATIVE) 04/14/17 21:50 Urine Blood Negative /ul (NEGATIVE) 04/14/17 21:50 Urine Nitrate Negative (NEGATIVE) 04/14/17 21:50 Urine Bilirubin Negative mg/dl (NEGATIVE) 04/14/17 21:50 Urine Urobilinogen Normal EU/dl (NORMAL) 04/14/17 21:50 Ur Leukocyte Esterase Negative /ul (NEGATIVE) 04/14/17 21:50 Urine RBC Trace /hpf (0-5) 04/14/17 21:50 Urine WBC Trace /hpf (0-5) H 04/14/17 21:50 Ur Epithelial Cells 0-5 /hpf (0-5) 04/14/17 21:50 Urine Bacteria 1+ (NONE) H 04/14/17 21:50 Hyaline Casts 5-10 /LPF (NONE) H 04/14/17 21:50 Urine Culture Comments No culture indicated 04/14/17 21:50 Assessment/Plan - Narrative Narrative: Syncope secondary to orthostatic hypotension. Monitor on telemetry Orthostatic vitals q8h Continue with IVF hydration Previous records reviewed safety measures while hospitalized CHRONIC, STABLE MEDICAL CONDITIONS: Type 2 DM: Diet controlled. Recent A1c 6.6%. HLD: Diet controlled. GERD: Continue home PPI VTE Prophylaxis: SCDs Code Status: Full Code Time 1hr - Assessment/Plan (1) Elevated lactic acid level Problem: Acute (2) Multiple falls Problem: Acute (3) Orthostatic hypotension dysautonomic syndrome Problem: Acute (4) Syncopal episodes Problem: Chronic (5) Diabetes Problem: Chronic Qualifiers: Diabetes mellitus type: type 2 (6) GERD (gastroesophageal reflux disease) Problem: Chronic (7) HLD (hyperlipidemia) Problem: Chronic
[2017-04-15 07:31] VITALS: BP 144/71
[2017-04-15] MEDS: SODIUM CHLORIDE IV PRN (08:27)
--- NOTE | 2017-04-20 09:25 | DS ---
Transfer Discharge Summary - Diagnosis(s)/Problems (1) Orthostatic hypotension dysautonomic syndrome Problem: Chronic (2) Syncope Problem: Acute (3) Orthostatic hypotension Problem: Chronic (4) Syncopal episodes Problem: Acute - Course Description of Stay: Patient was transferred to the [facility] overnight on 04/15/2017 prior to being seen by myself. I agree with the transfer for profound orthostatic hypotension and continuity of care. Procedures Performed: none - Medications Medications: Active Medications Discontinued Medications Acetaminophen (Tylenol) 650 mg PO ONCE ONE Stop: 04/15/17 00:33 Last Admin: 04/15/17 00:34 Dose: 650 mg Acetaminophen (Tylenol) 650 mg PO ONCE ONE Stop: 04/15/17 07:40 Last Admin: 04/15/17 08:00 Dose: 650 mg Sodium Chloride (Sodium Chloride 0.9%) 2,040 mls @ 126 mls/hr IV .[id number] PRN PRN Reason: HYDRATION Stop: 05/14/17 23:14 Last Admin: 04/15/17 08:27 Dose: 126 mls/hr Ondansetron HCl (Zofran) 4 mg IV ONCE ONE Stop: 04/14/17 21:56 Last Admin: 04/14/17 21:56 Dose: 4 mg Ondansetron HCl (Zofran) 4 mg IV Q6H PRN PRN Reason: Nausea And Vomiting Stop: 05/15/17 02:18 Last Admin: 04/15/17 02:24 Dose: 4 mg Potassium Chloride (K-Dur) 20 meq PO ONCE ONE Stop: 04/15/17 00:19 Last Admin: 04/15/17 00:22 Dose: 20 meq - Disposition Disposition: [facility] Condition: Fair Discharge Date: 04/15/17
== END 2017-04-15 08:37 | disposition short-term general hospital (02) ==
LOC: ER 21:06 → MS 04-15 00:33
PROVIDERS: ADMIT Nurse Practitioner; ATTEND Internal Medicine
PROC: 0T9B7ZZ Drainage of Bladder, Via Natural or Artificial Opening (ICD-10-PCS; principal; 2017-04-14)
DX: I95.1 Orthostatic hypotension (principal); E11.9 Type 2 diabetes mellitus without complications; R55 Syncope and collapse; S70.12XA Contusion of left thigh, initial encounter; W18.39XA Other fall on same level, initial encounter; Z91.81 History of falling; F32.9 Major depressive disorder, single episode, unspecified; K21.9 Gastro-esophageal reflux disease without esophagitis; R74.0 Nonspecific elevation of levels of transaminase and lactic acid dehydrogenase [LDH]; D72.829 Elevated white blood cell count, unspecified
CPT/HCPCS: 36415; 36600; 51701; 70450; 71010; 80053; 81001; 82803; 83605; 85025; 93005; 96374; 96376; 99285; G0378; J2405

== ENCOUNTER 2021-01-09 08:45 | Inpatient (IN) ==
[2021-01-09] MEDS ORDERED: NORMAL SALINE 1,000 ML IV ONE (09:13)
[2021-01-09] MEDS ORDERED: ACETAMINOPHEN 1,000 MG/100 ML BTL IV ONE (09:13)
[2021-01-09] MEDS ORDERED: DIPHTH,PERTUSS(ACELL),TET VAC 0.5 ML VIAL IM ONE (09:15)
[2021-01-09 09:30] LABS: Hematocrit 36.3 % (37.0-47.0); Hemoglobin 11.2 gm/dL (12.5-16.0); Mean Cell Volume 90.8 fl (78-100); Mean Corpuscular Hgb Conc 30.9 g/dl (32-36); Mean Platelet Volume 10.2 fl (8-12.5); Neutrophil # 8.3 K/mm3 (1.3-6.0); Neutrophil % 71.5 % (42-75.0); Platelet Count 240 K/mm3 (150-450); Red Cell Distribution Width 12.3 % (11.5-14.0); White Blood Count 11.5 K/mm3 (4.0-10.5)
--- NOTE | 2021-01-09 09:42 | ERNOTE ---
GI Bleeding/Rectal Pain ER Date of Service: 01/09/21 Presenting Symptoms: other - weakness Time Seen by Provider: 01/09/21 09:04 Source: patient, family Exam Limitations: clinical condition Immunizations: IMMUNIZATION HX Immunizations Up to Date Yes History of Influenza Vaccine No Hx Pneumococcal Vaccination No Allergies/Adverse Reactions: Allergies azithromycin [From Zithromax] Allergy (Mild, Verified 01/09/21 08:53) Hives citalopram Allergy (Verified 01/09/21 08:53) erythromycin base [Erythromycin Base] Adverse Reaction (Mild, Verified 01/09/21 08:53) NAUSEA, VOMITING Home Medications: HOME MEDICATIONS Cyanocobalamin [Vitamin B-12] 1,000 mcg PO DAILY 03/18/15 [Last Taken 11/01/16] Aspirin 81 mg PO DAILY 02/25/17 [Last Taken Unknown] Docusate Sodium [Doc-Q-Lace] 100 mg PO DAILY PRN 02/25/17 [Last Taken Unknown] Multivitamin [Multivitamins] 1 ea PO DAILY 11/16/17 [Last Taken Unknown] Acetaminophen [Tylenol] 325 mg PO ONCE PRN 03/02/18 [Last Taken Unknown] pyridostigmine bromide 180 mg tablet,extended release 60 mg PO TID PRN #30 tab 05/14/18 [Last Taken Unknown] paroxetine HCl 20 mg tablet 20 mg PO DAILY #30 tab 06/26/18 [Last Taken Unknown] acetaminophen 650 mg tablet,extended release 1,300 mg PO BID #180 tab 07/18/18 [Last Taken Unknown] atorvastatin 10 mg tablet 10 mg PO HS #90 tab 09/24/18 [Last Taken Unknown] ferrous gluconate 324 mg (37.5 mg iron) tablet 324 mg PO DAILY #30 tab 09/24/18 [Last Taken Unknown] Clopidogrel Bisulfate [Plavix] 75 mg PO DAILY 01/07/21 [Last Taken Unknown] Narrative: Patient presents to the ED for generalized weakness. This has been progressive but much worse over the last 10 days. She was evaluated here in the ED with extensive work up but no clear cause found. She was discharged and continues to worse. Now the family cannot even get her out of her chair. She has been more angry and seems to be staring out into space a lot. It too two people to get her into a wheelchair then she slid out of that in the waiting room and injured her left elbow. No head injury. It too 3 staff to get her into a bed here due to generalized weakness. The only pain she complains of is her left elbow. She seems tired and really is not amenable to answering multiple questions. Daughter provides most history. Blood noted in her depends today. Timing: constant, getting worse Quality/Severity: Present: severe Nausea/Vomiting: Present: none Abdominal Pain: Present: other - denies abdominal pain Rectal Bleeding: Present: other - this appears to be blood in her urine. Associated Symptoms: Denies: maroon stools Prior Treament: Reports: recently seen, similar symptoms before Review of Systems - Narrative Narrative: ROS unobtainable in entirety d/t patient condition - Review of Systems Cardiology: Absent: chest pain Gastrointestinal/Abdominal: Absent: abdominal pain Medical History (Last Reviewed 01/09/21 @ 09:40 by Ravi Mccord MD) Orthostatic hypotension (Chronic) GERD (gastroesophageal reflux disease) (Chronic) HLD (hyperlipidemia) (Chronic) Left ear pain (Acute) Type II diabetes mellitus (Chronic) diet control GERD (gastroesophageal reflux disease) (Chronic) Type II diabetes mellitus (Chronic) Anemia Anxiety Coronary artery disease Depression Diabetes GERD (gastroesophageal reflux disease) Hyperlipemia Hypokalemia Hyponatremia Orthostatic hypotension Ovarian cancer surgically removed and chemotherapy Surgical History: Surgical History (Last Reviewed 01/09/21 @ 09:40 by Ravi Mccord MD) H/O: hysterectomy Hx of breast reduction, elective Family History: Family History (Last Reviewed 01/09/21 @ 09:40 by Ravi Mccord MD) Other No pertinent family history Social History: (Last Reviewed 01/09/21 @ 09:40 by Ravi Mccord MD) Social History: adopted: No foster care: No retirement: No Marital status: / lives independently: Yes number of children: 3 caregiver/support person: No current occupational status: retired Highest level of school completed/degree received: 11th grade Sexually Active: No Service: No Tobacco: Smoking Status: Never smoker Alcohol: alcohol intake: current alcohol intake frequency: holiday/special occasion Substance Use: substance use type: does not use Dietary Habits: caffeine: Yes Type: carbonated beverages Physical Exam - Physical Exam General Appearance: Present: alert, other - eyes closed, opens eyes to verbal stimulation. Significant generalized weakness noted. Head Exam: Present: normal inspection, no evidence of injury Eye Exam: Normal inspection: bilateral, PERRL: bilateral Ears, Nose, Throat: Present: normal ENT inspection Neck: Present: normal inspection Respiratory: Present: no respiratory distress, no accessory muscle use, other - scattered rales without distress. Cardiovascular/Chest: Present: regular rate, rhythm, normal peripheral pulses Gastrointestinal/Abdominal: Present: normal bowel sounds, nontender, soft Rectal Exam: Present: other - blood noted to be urinary in etiology. No blleding from recutum, bloody urine noted. Back Exam: Present: other - deferred given patient's generalized weakness Extremity Exam: Present: other - mild left olecranon tenderness with small skin tear there. Possible right elbow tendenress, this is e-rayed also. Difficult exam. Neurological Exam: Present: other - significant generalized weakness noted. No clear signs of acute unilateral motor deficit. Skin Exam: Present: normal color, warm/dry, other - skin tear left elbow. Progress - Results and Orders Patient's Lab Results:: I have reviewed the patient's lab results. - Vital Signs Patient's Vital Signs:: I have reviewed the patient's vital signs. Vital Signs: Vital Signs 01/09/21 08:46 Temperature 36.2 C Pulse Rate 85 Respiratory Rate 16 Blood Pressure 158/62 H O2 Sat by Pulse Oximetry 97 - EKG EKG #1 EKG: NSR EKG read: Interp. by me EKG Comments: NSR rate 76. Non-specific ST/T wave changes, no STEMI noted. - X-Ray X-Ray #1 X-Ray: chest Interpretation: Interp. by me X-ray Comments: I personally reviewed x-ray images as well as official radiology report. X-Ray #2 X-Ray: elbow Interpretation: Interp. by me X-ray Comments: I personally reviewed x-ray images as well as official radiology report. Right elbow X-Ray #3 X-Ray: elbow Interpretation: Interp. by me X-ray Comments: I personally reviewed x-ray images as well as official radiology report. Left elbow - Progress/Reassessment Chief Complaint: Rectal Bleeding Progress Note-Subjective: 01/09/21 11:22 Patient did seem to have some limited ROM right arm a the elbow but no overt signs of trauma. There is a questionable radial head fracture on x-ray. I spoke with Jersey Villela who is population geneticist for Ortho. X-rays reviewed. Sling and outpatient follow-up recommended. Patient's family relates that this is the side of her prior stroke. She requires hospitalization for IV antibiotics and fluids. She has severe global weakness and cannot go home, required 3 nurses just to get her into bed in ED. Daughter informed and agreeable. Departure Clinical Impression: UTI (urinary tract infection), Confusion, Generalized weakness, Skin tear - Departure Disposition: Still a patient Condition: Fair Referrals: Nelly Herbert ARNP [Primary Care Provider] -
[2021-01-09 09:48] LABS: Urine Appearance Bloody (CLEAR); Urine Bilirubin Negative (NEGATIVE); Urine Blood 250 /ul (NEGATIVE); Urine Color Yellow; Urine Ketone 5 mg/dL (NEGATIVE); Urine Protein >=300 mg/dL (NEGATIVE); Urine Urobilinogen Normal (NORMAL)
[2021-01-09 09:49] LABS: Urine Bacteria 3+; Urine Nitrite Positive (NEGATIVE); Urine RBC >50 /hpf (0-5); Urine WBC >50 /hpf (0-5)
[2021-01-09 09:50] LABS: Troponin I Less than 0.017 ng/mL (0.00-0.10)
[2021-01-09 09:54] LABS: ALT 14 U/L (19-67); AST 16 U/L (0-48); Albumin * 3.5 gm/dl (3.4-5.0); Alkaline Phosphatase * 58 U/L (50-170); Anion Gap 14.9 mmol/L (6.8-13.8); BNP * 435 pg/mL (5-550); Bilirubin, Total 0.4 mg/dL (0.0-1.1); Blood Urea Nitrogen 16 mg/dL (3-23); Ca. Corrected For Albumin 8.5 mg/dL (8.4-10.2); Calcium * 8.4 mg/dL (7.9-10.9); Carbon Dioxide 25.8 mmol/L (24-32.6); Chloride 101 mmol/L (97-106); Glucose * 221 mg/dL (70-110); Potassium 3.7 mmol/L (3.4-4.6); Sodium 138 mmol/L (132-142); Total Protein 7.6 gm/dL (6.2-8.2)
[2021-01-09] MEDS ORDERED: cefTRIAXone SODIUM 1,000 MG/100 ML BAG IV ONE (10:53)
--- NOTE | 2021-01-09 14:03 | HP ---
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 She was in the emergency room 2 days ago and work-up then was done extensively including a head CT scan which showed no acute intracranial process. She was then sent home but then her weakness got even worse that the patient needed to have 2 people to assist her when transferring. She was also noted by family to be staring into space. The patient would start answering my questions but then again would say she did not know the answer. While transferring to her wheelchair today she slipped down and hurt her elbow. X-ray of both of her elbows showed possible fracture of the radial head correlate clinically. There was no fracture of the left elbow however when she did have contusion and laceration of her skin in that area. Her white blood cell count today is 11.5, hemoglobin of 11.2, MCV of 90.8, random blood sugar of 221, TSH normal. Her urinalysis was positive for nitrate, blood, RBCs, leukocyte esterase, and bacteria. Her lactic acid initially was high. It was also noted that there was blood in her depends. She was then admitted for further evaluation and treatment. I am not able to get too much from really and my history of physical illness is mostly based on the emergency room notes. Addendum: The daughter is now here. 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 Her mentation also declined and although she was never diagnosed with dementia she feels her mother has dementia and her behavior has really changed recently. Medical History (Last Reviewed 01/09/21 @ 14:20 by Jayla Franklin RN) Orthostatic hypotension (Chronic) GERD (gastroesophageal reflux disease) (Chronic) HLD (hyperlipidemia) (Chronic) Left ear pain (Acute) Type II diabetes mellitus (Chronic) diet control GERD (gastroesophageal reflux disease) (Chronic) Type II diabetes mellitus (Chronic) Anemia Anxiety Coronary artery disease Depression Diabetes GERD (gastroesophageal reflux disease) Hyperlipemia Hypokalemia Hyponatremia Orthostatic hypotension Ovarian cancer surgically removed and chemotherapy Surgical History: Surgical History (Last Reviewed 01/09/21 @ 14:21 by Jayla Franklin RN) H/O: hysterectomy Hx of breast reduction, elective Family History: Family History (Last Updated 01/09/21 @ 14:23 by Jayla Franklin RN) Mother No pertinent family history Other Diabetes Social History: (Last Reviewed 01/09/21 @ 09:40 by Ravi Mccord MD) Social History: adopted: No foster care: No intermediate: No Marital status: / lives independently: Yes number of children: 3 caregiver/support person: No current occupational status: retired Highest level of school completed/degree received: 11th grade Sexually Active: No Service: No Tobacco: Smoking Status: Never smoker Alcohol: alcohol intake: current alcohol intake frequency: holiday/special occasion Substance Use: substance use type: does not use Dietary Habits: caffeine: Yes Type: carbonated beverages Review Of Systems (GEN) - Review of Systems Additional Comments: Review of system is unobtainable due to patient's confusion. Immunizations: IMMUNIZATION HX Immunizations Up to Date Yes History of Influenza Vaccine No Hx Pneumococcal Vaccination No Allergies/Adverse Reactions: Allergies Allergy/AdvReac Type Severity Reaction Status Date / Time azithromycin [From Zithromax] Allergy Mild Hives Verified 01/09/21 08:53 citalopram Allergy Verified 01/09/21 08:53 erythromycin base AdvReac Mild NAUSEA, Verified 01/09/21 08:53 [Erythromycin Base] VOMITING Home Medications: HOME MEDICATIONS Cyanocobalamin [Vitamin B-12] 1,000 mcg PO DAILY 03/18/15 [Last Taken 11/01/16] Aspirin 81 mg PO DAILY 02/25/17 [Last Taken Unknown] Docusate Sodium [Doc-Q-Lace] 100 mg PO DAILY PRN 02/25/17 [Last Taken Unknown] Multivitamin [Multivitamins] 1 ea PO DAILY 11/16/17 [Last Taken Unknown] Acetaminophen [Tylenol] 325 mg PO ONCE PRN 03/02/18 [Last Taken Unknown] pyridostigmine bromide 180 mg tablet,extended release 60 mg PO TID PRN #30 tab 05/14/18 [Last Taken Unknown] paroxetine HCl 20 mg tablet 20 mg PO DAILY #30 tab 06/26/18 [Last Taken Unknown] acetaminophen 650 mg tablet,extended release 1,300 mg PO BID #180 tab 07/18/18 [Last Taken Unknown] atorvastatin 10 mg tablet 10 mg PO HS #90 tab 09/24/18 [Last Taken Unknown] ferrous gluconate 324 mg (37.5 mg iron) tablet 324 mg PO DAILY #30 tab 09/24/18 [Last Taken Unknown] Clopidogrel Bisulfate [Plavix] 75 mg PO DAILY 01/07/21 [Last Taken Unknown] Exam - Exam Vital Signs: Vital Signs - Last Taken Temp 36.2 C 01/09/21 13:12 Pulse 85 01/09/21 13:12 Resp 16 01/09/21 13:12 BP 158/62 H 01/09/21 13:12 Pulse Ox 97 01/09/21 13:12 Constitutional: Present: Alert - Awake alert oriented x1, Cooperative, Elderly ENT Exam: Present: hearing grossly normal Eye Exam: bilateral eye: normal inspection, PERRL, EOMI Neck: Present: supple. Absent: lymphadenopathy (R), lymphadenopathy (L) Respiratory: Present: decreased breath sounds, No rales, No wheezing Cardiovascular/Chest: Present: regular rate, rhythm, no JVD, no murmur Abdomen: Present: Normal bowel sounds, soft, nontender, nondistended Extremity: Present: no calf tenderness. Absent: lower extremity edema Diagnostic Studies: Abnormal Lab Results 01/09/21 01/09/21 01/09/21 Range/Units 09:12 09:26 09:26 WBC 11.5 H D (4.0-10.5) K/mm3 RBC 4.00 L (4.2-5.4) M/mm3 Hgb 11.2 L (12.5-16.0) gm/dL Hct 36.3 L (37.0-47.0) % MCHC 30.9 L (32-36) g/dl Neutrophils # 8.3 H (1.3-6.0) K/mm3 Anion Gap 14.9 H (6.8-13.8) mmol/L Creatinine 1.46 H (0.4-1.4) mg/dL Est GFR (Non-Af Amer) 36 L D (60-130) mL/min Random Glucose 221 H D (70-110) mg/dL Lactic Acid, Venous 3.5 H* (0.4-2.0) mmol/L ALT 14 L (19-67) U/L Urine Protein (NEGATIVE) mg/dL Urine Blood (NEGATIVE) /ul Urine Nitrate (NEGATIVE) Ur Leukocyte Esterase (NEGATIVE) /ul Urine RBC (0-5) /hpf Urine WBC (0-5) /hpf Urine Bacteria (NONE) 01/09/21 Range/Units 09:32 WBC (4.0-10.5) K/mm3 RBC (4.2-5.4) M/mm3 Hgb (12.5-16.0) gm/dL Hct (37.0-47.0) % MCHC (32-36) g/dl Neutrophils # (1.3-6.0) K/mm3 Anion Gap (6.8-13.8) mmol/L Creatinine (0.4-1.4) mg/dL Est GFR (Non-Af Amer) (60-130) mL/min Random Glucose (70-110) mg/dL Lactic Acid, Venous (0.4-2.0) mmol/L ALT (19-67) U/L Urine Protein >=300 H (NEGATIVE) mg/dL Urine Blood 250 H (NEGATIVE) /ul Urine Nitrate Positive H (NEGATIVE) Ur Leukocyte Esterase 500 H (NEGATIVE) /ul Urine RBC >50 H (0-5) /hpf Urine WBC >50 H (0-5) /hpf Urine Bacteria 3+ H (NONE) Laboratory Results WBC 11.5 K/mm3 (4.0-10.5) H D 01/09/21 09:12 RBC 4.00 M/mm3 (4.2-5.4) L 01/09/21 09:12 Hgb 11.2 gm/dL (12.5-16.0) L 01/09/21 09:12 Hct 36.3 % (37.0-47.0) L 01/09/21 09:12 MCV 90.8 fl (78-100) 01/09/21 09:12 MCH 28.0 pg (27-31) 01/09/21 09:12 MCHC 30.9 g/dl (32-36) L 01/09/21 09:12 RDW 12.3 % (11.5-14.0) 01/09/21 09:12 Plt Count 240 K/mm3 (150-450) 01/09/21 09:12 MPV 10.2 fl (8-12.5) 01/09/21 09:12 Immature Gran % (Auto) 0.30 % (0.001-0.429) 01/09/21 09:12 Immature Gran # (Auto) 0.03 K/mm3 (0.000-0.0310) 01/09/21 09:12 Neutrophils % 71.5 % (42-75.0) 01/09/21 09:12 Lymphocytes % 20.5 % (20-51) 01/09/21 09:12 Monocytes % 5.8 % (0.0-9) 01/09/21 09:12 Eosinophils % 1.6 % (0.0-3.0) 01/09/21 09:12 Basophils % 0.3 % (0.0-1.0) 01/09/21 09:12 Nucleated RBC % 0.0 k/mm3 (0-1) 01/09/21 09:12 Neutrophils # 8.3 K/mm3 (1.3-6.0) H 01/09/21 09:12 Lymphocytes # 2.36 k/mm3 (1.5-3.5) 01/09/21 09:12 Monocytes # 0.7 k/mm3 (0.0-1.0) 01/09/21 09:12 Eosinophils # 0.2 k/mm3 (0.0-0.7) 01/09/21 09:12 Absolute Basophils 0.0 k/mm3 (0.0-0.1) 01/09/21 09:12 Sodium 138 mmol/L (132-142) 01/09/21 09:26 Plasma Sodium 140 mmol/L (130-142) 01/09/21 09:26 Potassium 3.7 mmol/L (3.4-4.6) 01/09/21 09:26 Chloride 101 mmol/L (97-106) 01/09/21 09:26 Carbon Dioxide 25.8 mmol/L (24-32.6) 01/09/21 09:26 Anion Gap 14.9 mmol/L (6.8-13.8) H 01/09/21 09:26 BUN 16 mg/dL (3-23) 01/09/21 09:26 Creatinine 1.46 mg/dL (0.4-1.4) H 01/09/21 09:26 Est GFR (Non-Af Amer) 36 mL/min (60-130) L D 01/09/21 09: BUN/Creatinine Ratio 11.0 (9.0-21.6) 01/09/21 09: Random Glucose 221 mg/dL (70-110) H D 01/09/21 09: Lactic Acid, Venous 1.1 mmol/L (0.4-2.0) 01/09/21 11:46 Calcium 8.4 mg/dL (7.9-10.9) 01/09/21 09: Calcium Adj for Albumin 8.5 mg/dL (8.4-10.2) 01/09/21: Total Bilirubin 0.4 mg/dL (0.0-1.1) 01/09/21 09: AST 16 U/L (0-48) 01/09/21: ALT 14 U/L (19-67) L 01/09/21: Alkaline Phosphatase 58 U/L (50-170) 01/09/21: Ammonia 22.0 mcmol/L (11-35) 01/09/21: Troponin I Less than 0.017 ng/mL (0.00-0.10) 01/09/21 B-Natriuretic Peptide 435 pg/mL (5-550) 01/09/21 09: Total Protein 7.6 gm/dL (6.2-8.2) 01/09/21: Albumin 3.5 gm/dl (3.4-5.0) 01/09/21: TSH 3.190 uIU/mL (0.358-3.74) 01/09/21 09: Urine Color Yellow 01/09/21: Urine Appearance Bloody (CLEAR) 01/09/21: Urine pH 7.0 pH (5.0-7.0) 01/09/21: Ur Specific [place] 1.020 SP.GR. (1.005-1.010) 01/09/21: Urine Protein >=300 mg/dL (NEGATIVE) H 01/09/21: Urine Glucose (UA) Negative mg/dL (NEGATIVE) 06/12/21 09:32 Urine Ketones 5 mg/dL (NEGATIVE) 01/09/21 09:32 Urine Blood 250 /ul (NEGATIVE) H 01/09/21 09:32 Urine Nitrate Positive (NEGATIVE) H 01/09/21 09:32 Urine Bilirubin Negative mg/dl (NEGATIVE) 01/09/21 09:32 Urine Urobilinogen Normal EU/dl (NORMAL) 01/09/21 09:32 Ur Leukocyte Esterase 500 /ul (NEGATIVE) H 01/09/21 09:32 Urine RBC >50 /hpf (0-5) H 01/09/21 09:32 Urine WBC >50 /hpf (0-5) H 01/09/21 09:32 Ur Epithelial Cells None seen /hpf (0-5) 01/09/21 09:32 Urine Bacteria 3+ (NONE) H 01/09/21 09:32 Urine Culture Comments Culture to follow 01/09/21 09:32 Stool Occult Blood Negative 01/09/21 09:38 Assessment/Plan - Narrative Narrative: Valentina is an 85-year-old white female was admitted for generalized weakness, hematuria and UTI. We will continue patient on IV Rocephin and IV fluids. Will await culture and sensitivity. We will get a renal ultrasound if we are able to do it on the weekend. We will defer referring patient to physical therapy as she is anyway wheelchair-bound. She did say she had pain when I was pressing her radial head however patient is not able to point where the tenderness is and does not grimace at all. It will look like it will be an old radial head fracture from previous falls in the past. - Assessment/Plan (1) Generalized weakness Problem: Acute (2) UTI (urinary tract infection) Problem: Acute Qualifiers: Urinary tract infection type: acute cystitis Hematuria presence: with hematuria Qualified Code(s): N30.01 - Acute cystitis with hematuria (3) Hematuria Problem: Acute (4) Diabetes Problem: Chronic (5) GERD (gastroesophageal reflux disease) Problem: Chronic (6) HLD (hyperlipidemia) Problem: Chronic Qualifiers:
[2021-01-09] MEDS ORDERED: ACETAMINOPHEN 500 MG TABLET PO PRN (23:44)
[2021-01-09] MEDS: LORazepam 0.5 MG TABLET PO PRN (23:57)
[2021-01-10] MEDS ORDERED: DOCUSATE SODIUM 100 MG CAPSULE PO PRN (09:09)
[2021-01-10] MEDS ORDERED: PYRIDOSTIGMINE BROMIDE 60 MG TABLET PO PRN (09:09)
[2021-01-10] MEDS ORDERED: BENZONATATE 100 MG CAPSULE PO PRN (09:21)
--- NOTE | 2021-01-10 09:25 | PN ---
Subjective - Date and Time Seen Date: 01/10/21 Time: 09:24 Subjective Narrative: febrile this morning. c/o of coughing. Objective - Review of Systems Generalized/Overall Review: Reports: Weakness EENTM: Denies: Blurred Vision Respiratory: Reports: Cough, Wheezing. Denies: Shortness of Breath Cardiac: Denies: Chest Pain, Edema, Palpitations Abdominal: Denies: Nausea, Vomiting, Abdominal Pain Genitourinary Symptoms: Denies: Urgency, Frequency Musculoskeletal Complaints: Reports: Joint Pain Neurological: Denies: Headache Skin: Reports: Other. Denies: Lesions, Rash Misc: All systems neg except as marked - Vitals Vitals: Last Vital Signs Temp 38.2 C H 01/10/21 07:15 Pulse 89 01/10/21 07:15 Resp 24 H 01/10/21 07:15 BP 160/82 H 01/10/21 07:15 Pulse Ox 91 L 01/10/21 07:15 - Abnormal Lab Findings Abnormal Lab Findings: Abnormal Lab Results 01/09/21 01/09/21 01/09/21 Range/Units 09:12 09:26 09:26 WBC 11.5 H D (4.0-10.5) K/mm3 RBC 4.00 L (4.2-5.4) M/mm3 Hgb 11.2 L (12.5-16.0) gm/dL Hct 36.3 L (37.0-47.0) % MCHC 30.9 L (32-36) g/dl Neutrophils # 8.3 H (1.3-6.0) K/mm3 Anion Gap 14.9 H (6.8-13.8) mmol/L Creatinine 1.46 H (0.4-1.4) mg/dL Est GFR (Non-Af Amer) 36 L D (60-130) mL/min Random Glucose 221 H D (70-110) mg/dL Lactic Acid, Venous 3.5 H* (0.4-2.0) mmol/L ALT 14 L (19-67) U/L Urine Protein (NEGATIVE) mg/dL Urine Blood (NEGATIVE) /ul Urine Nitrate (NEGATIVE) Ur Leukocyte Esterase (NEGATIVE) /ul Urine RBC (0-5) /hpf Urine WBC (0-5) /hpf Urine Bacteria (NONE) 01/09/21 Range/Units 09:32 WBC (4.0-10.5) K/mm3 RBC (4.2-5.4) M/mm3 Hgb (12.5-16.0) gm/dL Hct (37.0-47.0) % MCHC (32-36) g/dl Neutrophils # (1.3-6.0) K/mm3 Anion Gap (6.8-13.8) mmol/L Creatinine (0.4-1.4) mg/dL Est GFR (Non-Af Amer) (60-130) mL/min Random Glucose (70-110) mg/dL Lactic Acid, Venous (0.4-2.0) mmol/L ALT (19-67) U/L Urine Protein >=300 H (NEGATIVE) mg/dL Urine Blood 250 H (NEGATIVE) /ul Urine Nitrate Positive H (NEGATIVE) Ur Leukocyte Esterase 500 H (NEGATIVE) /ul Urine RBC >50 H (0-5) /hpf Urine WBC >50 H (0-5) /hpf Urine Bacteria 3+ H (NONE) - Exam Constitutional: Present: Alert - Awake alert oriented x2, Elderly ENT Exam: Present: hearing grossly normal Neck: Present: supple. Absent: lymphadenopathy (R), lymphadenopathy (L) Respiratory: Present: decreased breath sounds, wheezing, No rales Cardiovascular/Chest: Present: regular rate, rhythm, no JVD, no murmur Abdomen: Present: Normal bowel sounds, soft, nontender, nondistended Extremity: Present: no calf tenderness, pedal edema Assessment/Plan Plan Narrative: Valentina had a fever this morning associated with elevated blood pressure. We will start her on lisinopril 10 mg p.o. daily and continue with her Tylenol on as needed basis. Her urine culture is growing Streptococcus species. We will continue with her IV Rocephin and await final sensitivity. We will hold her aspirin and Plavix for now because of her hematuria. We will admit her to inpatient. - Problems/Diagnosis (1) Generalized weakness Problem: Acute (2) UTI (urinary tract infection) Problem: Acute Qualifiers: Urinary tract infection type: acute cystitis Hematuria presence: with hematuria Qualified Code(s): N30.01 - Acute cystitis with hematuria (3) Hematuria Problem: Acute (4) Diabetes Problem: Chronic (5) GERD (gastroesophageal reflux disease) Problem: Chronic (6) HLD (hyperlipidemia) Problem: Chronic Qualifiers:
[2021-01-10] MEDS ORDERED: NORMAL SALINE 1,000 ML IV ONE (09:28)
[2021-01-10] MEDS: LISINOPRIL 10 MG TABLET PO SCH (12:07)
[2021-01-10 13:07] LABS: Prothrombin Time (Patient) 11.6 Seconds (9.1-10.7)
[2021-01-10 13:14] LABS: INR 1.12 INR (0.92-1.08)
[2021-01-10] MEDS: ALBUTEROL SULFATE/IPRATROPIUM 3 ML NEBU IH SCH ×2 (14:07→18:18)
[2021-01-10] MEDS: INSULIN LISPRO 100 UNITS/ML VIAL SC SCH (19:55)
[2021-01-10] MEDS ORDERED: FUROSEMIDE 10 MG/ML VIAL IV ONE (20:45)
[2021-01-10] MEDS: ROSUVASTATIN CALCIUM 5 MG TABLET PO SCH (21:50)
[2021-01-11] MEDS: ALBUTEROL SULFATE/IPRATROPIUM 3 ML NEBU IH SCH ×4 (02:40→18:16)
[2021-01-11 06:47] LABS: Hematocrit 32.4 % (37.0-47.0); Hemoglobin 10.2 gm/dL (12.5-16.0); Mean Cell Volume 89.8 fl (78-100); Mean Corpuscular Hemoglobin 28.3 pg (27-31); Mean Corpuscular Hgb Conc 31.5 g/dl (32-36); Mean Platelet Volume 9.9 fl (8-12.5); Neutrophil # 10.4 K/mm3 (1.3-6.0); Platelet Count 236 K/mm3 (150-450); Red Blood Count 3.61 M/mm3 (4.2-5.4); Red Cell Distribution Width 12.5 % (11.5-14.0)
[2021-01-11 06:55] LABS: Anion Gap 16.1 mmol/L (6.8-13.8); BUN/Creatinine Ratio 11.2 (9.0-21.6); Estimated Creat Clear 23.3; Potassium 3.1 mmol/L (3.4-4.6)
[2021-01-11 07:02] LABS: Hemoglobin A1C 6.9 % (3.80-5.60)
[2021-01-11] MEDS: INSULIN LISPRO 100 UNITS/ML VIAL SC SCH ×3 (07:45→17:16)
--- NOTE | 2021-01-11 09:08 | PN ---
Subjective - Date and Time Seen Date: 01/11/21 Time: 08:58 Subjective Narrative: UGC growing Enterococcus fecalis. afebrile for 24 hours. wbc up to 14. Objective - Review of Systems Misc: All systems neg except as marked - Review of system is unreliable due to patient's mentation - Vitals Vitals: Last Vital Signs Temp 36.7 C 01/11/21 06:42 Pulse 88 01/11/21 06:42 Resp 20 01/11/21 06:42 BP 172/68 H 01/11/21 06:42 Pulse Ox 92 L 01/11/21 06:42 - Abnormal Lab Findings Abnormal Lab Findings: Abnormal Lab Results 01/10/21 01/11/21 01/11/21 Range/Units 12:52 06:40 06:40 WBC 14.0 H D (4.0-10.5) K/mm3 RBC 3.61 L (4.2-5.4) M/mm3 Hgb 10.2 L (12.5-16.0) gm/dL Hct 32.4 L (37.0-47.0) % MCHC 31.5 L (32-36) g/dl Immature Gran % (Auto) 0.50 H (0.001-0.429) % Immature Gran # (Auto) 0.07 H (0.000-0.0310) K/mm3 Lymphocytes % 16.8 L (20-51) % Neutrophils # 10.4 H (1.3-6.0) K/mm3 Monocytes # 1.2 H (0.0-1.0) k/mm3 PT 11.6 H (9.1-10.7) Seconds INR (Anticoag Therapy) 1.12 H (0.92-1.08) INR Sodium 143 H (132-142) mmol/L Plasma Sodium 144 H (130-142) mmol/L Potassium 3.1 L (3.4-4.6) mmol/L Anion Gap 16.1 H (6.8-13.8) mmol/L Est GFR (Non-Af Amer) 44 L D (60-130) mL/min Random Glucose 175 H (70-110) mg/dL Hemoglobin A1c (3.80-5.60) % 01/11/21 Range/Units 06:40 WBC (4.0-10.5) K/mm3 RBC (4.2-5.4) M/mm3 Hgb (12.5-16.0) gm/dL Hct (37.0-47.0) % MCHC (32-36) g/dl Immature Gran % (Auto) (0.001-0.429) % Immature Gran # (Auto) (0.000-0.0310) K/mm3 Lymphocytes % (20-51) % Neutrophils # (1.3-6.0) K/mm3 Monocytes # (0.0-1.0) k/mm3 PT (9.1-10.7) Seconds INR (Anticoag Therapy) (0.92-1.08) INR Sodium (132-142) mmol/L Plasma Sodium (130-142) mmol/L Potassium (3.4-4.6) mmol/L Anion Gap (6.8-13.8) mmol/L Est GFR (Non-Af Amer) (60-130) mL/min Random Glucose (70-110) mg/dL Hemoglobin A1c 6.9 H (3.80-5.60) % - Exam Constitutional: Present: Alert - Awake alert oriented x1, Elderly ENT Exam: Present: hard of hearing Neck: Present: supple. Absent: lymphadenopathy (R), lymphadenopathy (L) Respiratory: Present: decreased breath sounds, wheezing, No rales Cardiovascular/Chest: Present: regular rate, rhythm, no JVD, no murmur Abdomen: Present: Normal bowel sounds, soft, nontender, nondistended Extremity: Present: no calf tenderness, pedal edema Assessment/Plan Plan Narrative: Valentina was admitted for generalized weakness and was found to have hematuria and UTI. She had an initial lactic acidosis which resolved with IV fluids. Patient had some audible wheezing last night. Lasix was given x1. DuoNeb was started. Her chest x-ray on admission showed no acute cardiopulmonary findings. Her Plavix and aspirin have been put on hold because of her hematuria. Her culture grew Enterococcus faecalis. Ciprofloxacin was started per sensitivity. We will continue current antibiotic. Patient will need urologic consult for hematuria if it does not get better with treatment of urinary tract infection. - Problems/Diagnosis (1) Generalized weakness Problem: Acute (2) UTI (urinary tract infection) Problem: Acute Qualifiers: Urinary tract infection type: acute cystitis Hematuria presence: with hematuria Qualified Code(s): N30.01 - Acute cystitis with hematuria (3) Hematuria Problem: Acute (4) Diabetes Problem: Chronic (5) GERD (gastroesophageal reflux disease) Problem: Chronic (6) HLD (hyperlipidemia) Problem: Chronic Qualifiers:
[2021-01-11] MEDS: PARoxetine HCL 20 MG TABLET PO SCH (10:00)
[2021-01-11] MEDS: CYANOCOBALAMIN 1,000 MCG TABLET PO SCH (10:00)
[2021-01-11] MEDS: LISINOPRIL 10 MG TABLET PO SCH (10:00)
[2021-01-11] MEDS: FERROUS SULFATE 325 MG TABLET PO SCH (10:00)
[2021-01-11] MEDS: MULTIVITAMINS 1 CAP CAPSULE PO SCH (10:01)
[2021-01-11] MEDS: CIPROFLOXACIN IN 5 % DEXTROSE 400 MG/200 ML BAG IV SCH ×2 (10:17→21:54)
[2021-01-11] MEDS ORDERED: POTASSIUM CHLORIDE 20 MEQ TABLET.SA PO ONE (13:18)
[2021-01-11] MEDS: LORazepam 0.5 MG TABLET PO PRN ×2 (14:46→22:00)
[2021-01-11] MEDS: ROSUVASTATIN CALCIUM 5 MG TABLET PO SCH (21:30)
[2021-01-11] MEDS ORDERED: CLONIDINE HCL 0.1 MG TABLET PO ONE (23:47)
[2021-01-12] MEDS: ALBUTEROL SULFATE/IPRATROPIUM 3 ML NEBU IH SCH ×6 (00:07→23:51)
--- NOTE | 2021-01-12 08:37 | PN ---
Subjective - Date and Time Seen Date: 01/12/21 Time: 08:36 Subjective Narrative: patient is at times combative per daughter. Potassium is back to normal. WBC is down a little bit. A febrile for the last 48 hours. Objective - Review of Systems Misc: All systems neg except as marked - Review of system is unreliable due to patient's mental status - Vitals Vitals: Last Vital Signs Temp 36.5 C 01/12/21 06:00 Pulse 85 01/12/21 07:50 Resp 20 01/12/21 07:50 BP 115/91 H 01/12/21 06:00 Pulse Ox 94 01/12/21 07:40 - Exam Constitutional: Present: Alert - Awake alert oriented x1, Elderly ENT Exam: Present: hard of hearing Neck: Present: supple. Absent: lymphadenopathy (R) - January 30, lymphadenopathy (L) Respiratory: Present: decreased breath sounds, wheezing - Occasional, No rales Cardiovascular/Chest: Present: regular rate, rhythm, no JVD, no murmur Abdomen: Present: Normal bowel sounds, soft, nontender, nondistended Extremity: Present: no calf tenderness, pedal edema Assessment/Plan Plan Narrative: We will continue with the patient's current medications and present management. Her white blood cell count is now trending down and she has been afebrile for 48 hours. She has not had any more gross hematuria. We will continue with IV antibiotics today and possible discharge tomorrow on oral medications. She may need urology consultation as an outpatient especially if she continues to have gross or microscopic hematuria despite treatment of urinary tract infection. I suspect the patient has baseline dementia. The daughter said she always thought that her mother had beginning dementia but was never diagnosed or told by her doctor that she had one. I will defer from doing a Mini-Mental status exam due to her urinary tract infection which can affect her mentation but would recommend to have one done when her UTI finally treated .. - Problems/Diagnosis (1) Generalized weakness Problem: Acute (2) UTI (urinary tract infection) Problem: Acute Qualifiers: Urinary tract infection type: acute cystitis Hematuria presence: with hematuria Qualified Code(s): N30.01 - Acute cystitis with hematuria (3) Hematuria Problem: Acute (4) Diabetes Problem: Chronic (5) GERD (gastroesophageal reflux disease) Problem: Chronic (6) HLD (hyperlipidemia) Problem: Chronic Qualifiers: (7) Dementia Problem: Suspected Qualifiers: Dementia behavioral disturbance: with behavioral disturbance
[2021-01-12 08:49] LABS: Hemoglobin 10.4 gm/dL (12.5-16.0); Mean Cell Volume 88.7 fl (78-100); Mean Corpuscular Hgb Conc 31.5 g/dl (32-36); Platelet Count 282 K/mm3 (150-450); Red Blood Count 3.72 M/mm3 (4.2-5.4); Red Cell Distribution Width 12.6 % (11.5-14.0); White Blood Count 13.5 K/mm3 (4.0-10.5)
[2021-01-12 09:19] LABS: Anion Gap 11.9 mmol/L (6.8-13.8); BUN/Creatinine Ratio 8.2 (9.0-21.6); Carbon Dioxide 27.6 mmol/L (24-32.6); Estimated Creat Clear 23.8; Potassium 3.5 mmol/L (3.4-4.6)
[2021-01-12] MEDS: CYANOCOBALAMIN 1,000 MCG TABLET PO SCH (09:24)
[2021-01-12] MEDS: FERROUS SULFATE 325 MG TABLET PO SCH (09:24)
[2021-01-12] MEDS: MULTIVITAMINS 1 CAP CAPSULE PO SCH (09:24)
[2021-01-12] MEDS: PARoxetine HCL 20 MG TABLET PO SCH (09:24)
[2021-01-12] MEDS: LISINOPRIL 10 MG TABLET PO SCH (09:24)
[2021-01-12] MEDS: INSULIN LISPRO 100 UNITS/ML VIAL SC SCH ×3 (09:27→16:34)
[2021-01-12] MEDS: CIPROFLOXACIN IN 5 % DEXTROSE 400 MG/200 ML BAG IV SCH ×2 (09:34→20:03)
[2021-01-12] MEDS: LORazepam 0.5 MG TABLET PO PRN (14:13)
[2021-01-12] MEDS: ROSUVASTATIN CALCIUM 5 MG TABLET PO SCH (20:03)
[2021-01-13] MEDS: ALBUTEROL SULFATE/IPRATROPIUM 3 ML NEBU IH SCH ×4 (05:50→18:12)
[2021-01-13] MEDS: INSULIN LISPRO 100 UNITS/ML VIAL SC SCH ×3 (07:39→17:33)
[2021-01-13 07:41] LABS: Hemoglobin 10.1 gm/dL (12.5-16.0); Mean Cell Volume 88.6 fl (78-100); Mean Corpuscular Hgb Conc 31.6 g/dl (32-36); Mean Platelet Volume 10.1 fl (8-12.5); Neutrophil # 7.3 K/mm3 (1.3-6.0); Neutrophil % 68.8 % (42-75.0); Platelet Count 281 K/mm3 (150-450); Red Blood Count 3.61 M/mm3 (4.2-5.4); Red Cell Distribution Width 12.5 % (11.5-14.0); White Blood Count 10.6 K/mm3 (4.0-10.5)
[2021-01-13] MEDS: FERROUS SULFATE 325 MG TABLET PO SCH (08:52)
[2021-01-13] MEDS: LISINOPRIL 10 MG TABLET PO SCH (08:53)
[2021-01-13] MEDS: CYANOCOBALAMIN 1,000 MCG TABLET PO SCH (08:53)
[2021-01-13] MEDS: MULTIVITAMINS 1 CAP CAPSULE PO SCH (08:54)
[2021-01-13] MEDS: PARoxetine HCL 20 MG TABLET PO SCH (08:55)
[2021-01-13] MEDS: CIPROFLOXACIN IN 5 % DEXTROSE 400 MG/200 ML BAG IV SCH (08:57)
--- NOTE | 2021-01-13 09:15 | PN ---
Subjective - Date and Time Seen Date: 01/13/21 Time: 09:14 Subjective Narrative: afebrile for more than 72 hours. WBC down to 10.6. no gross hematuria. Objective - Review of Systems Misc: All systems neg except as marked - Review of system is unreliable due to patient's mentation. - Vitals Vitals: Last Vital Signs Temp 36.4 C 01/13/21 03:00 Pulse 91 01/13/21 08:53 Resp 20 01/13/21 06:00 BP 149/51 01/13/21 08:53 Pulse Ox 97 01/13/21 05:50 - Abnormal Lab Findings Abnormal Lab Findings: Abnormal Lab Results 01/12/21 01/13/21 Range/Units 08:45 07:30 WBC 10.6 H D (4.0-10.5) K/mm3 RBC 3.61 L (4.2-5.4) M/mm3 Hgb 10.1 L (12.5-16.0) gm/dL Hct 32.0 L (37.0-47.0) % MCHC 31.6 L (32-36) g/dl Immature Gran # (Auto) 0.04 H (0.000-0.0310) K/mm3 Lymphocytes % 19.6 L (20-51) % Neutrophils # 7.3 H (1.3-6.0) K/mm3 Est GFR (Non-Af Amer) 45 L (60-130) mL/min BUN/Creatinine Ratio 8.2 L (9.0-21.6) Random Glucose 170 H (70-110) mg/dL - Exam Constitutional: Present: Alert - Awake alert oriented x1, Elderly ENT Exam: Present: hearing grossly normal Neck: Present: supple. Absent: lymphadenopathy (R), lymphadenopathy (L) Respiratory: Present: chest non-tender, normal breath sounds, No rales, No wheezing Cardiovascular/Chest: Present: regular rate, rhythm, no JVD, no murmur Abdomen: Present: Normal bowel sounds, soft, nontender, nondistended Extremity: Present: no calf tenderness, pedal edema Assessment/Plan Plan Narrative: Valentina barbosa is an 85-year-old white female who came in with gross hematuria, confusion, and UTI. She is on ciprofloxacin for E. coli acute cystitis with hematuria. Her white blood cell count is down now to 10.6 and she has been afebrile for the last 72 hours. She has normal gross hematuria. We will change her antibiotics to oral and was going to be discharged however family will not be able to take care of her at home and we are trying to look for placements at this time. Her confusion most likely secondary to a baseline dementia. - Problems/Diagnosis (1) Generalized weakness Problem: Acute (2) UTI (urinary tract infection) Problem: Acute Qualifiers: Urinary tract infection type: acute cystitis Hematuria presence: with hematuria Qualified Code(s): N30.01 - Acute cystitis with hematuria (3) Hematuria Problem: Acute (4) Diabetes Problem: Chronic (5) GERD (gastroesophageal reflux disease) Problem: Chronic (6) HLD (hyperlipidemia) Problem: Chronic Qualifiers: (7) Dementia Problem: Suspected Qualifiers: Dementia behavioral disturbance: with behavioral disturbance
[2021-01-13] MEDS: LORazepam 0.5 MG TABLET PO PRN (18:08)
[2021-01-13] MEDS: ROSUVASTATIN CALCIUM 5 MG TABLET PO SCH (20:52)
[2021-01-13] MEDS: CIPROFLOXACIN HCL 500 MG TABLET PO SCH (20:52)
[2021-01-14] MEDS: ALBUTEROL SULFATE/IPRATROPIUM 3 ML NEBU IH SCH ×5 (00:28→18:20)
[2021-01-14] MEDS: INSULIN LISPRO 100 UNITS/ML VIAL SC SCH ×3 (07:18→16:33)
--- NOTE | 2021-01-14 08:33 | PN ---
Progess Note - Interim Date: 01/14/21 Time: 08:33 Narrative: 01/14/21 08:33 AAO x1 . awaiting NH placement.
[2021-01-14] MEDS: LISINOPRIL 10 MG TABLET PO SCH (09:25)
[2021-01-14] MEDS: MULTIVITAMINS 1 CAP CAPSULE PO SCH (09:25)
[2021-01-14] MEDS: CIPROFLOXACIN HCL 500 MG TABLET PO SCH ×2 (09:25→21:57)
[2021-01-14] MEDS: CYANOCOBALAMIN 1,000 MCG TABLET PO SCH (09:26)
[2021-01-14] MEDS: PARoxetine HCL 20 MG TABLET PO SCH (09:26)
[2021-01-14] MEDS: FERROUS SULFATE 325 MG TABLET PO SCH (09:26)
[2021-01-14] MEDS: ASPIRIN 81 MG TAB.CHEW PO SCH (09:26)
[2021-01-14] MEDS: LORazepam 0.5 MG TABLET PO PRN (14:49)
--- NOTE | 2021-01-14 15:59 | PN ---
Subjective - Date and Time Seen Date: 01/14/21 Time: 15:57 Subjective Narrative: AAO x1 . awaiting NH placement. Objective - Review of Systems Misc: All systems neg except as marked - Unreliable due to patient's confusion. - Vitals Vitals: Last Vital Signs Temp 36.8 C 01/14/21 14:29 Pulse 103 H 01/14/21 14:29 Resp 24 H 01/14/21 14:29 BP 159/59 H 01/14/21 14:29 Pulse Ox 93 01/14/21 14:29 - Exam Constitutional: Present: Oriented x3, Elderly ENT Exam: Present: hard of hearing Neck: Present: supple. Absent: limited range of motion, lymphadenopathy (R) Respiratory: Present: decreased breath sounds, No rales, No wheezing Cardiovascular/Chest: Present: regular rate, rhythm, no JVD, no murmur Abdomen: Present: Normal bowel sounds, soft, nontender, nondistended Extremity: Present: no calf tenderness, pedal edema Assessment/Plan Plan Narrative: Valentina Zamorano was admitted for confusion, UTI and hematuria. She is on oral Cipro now for her UTI and her hematuria has resolved. She also has been afebrile for the last at least 3 days and her white blood cell count yesterday was 10.6. She is just awaiting also fdc placement. - Problems/Diagnosis (1) Generalized weakness Problem: Acute (2) UTI (urinary tract infection) Problem: Acute Qualifiers: Urinary tract infection type: acute cystitis Hematuria presence: with hematuria Qualified Code(s): N30.01 - Acute cystitis with hematuria (3) Hematuria Problem: Acute (4) Diabetes Problem: Chronic (5) GERD (gastroesophageal reflux disease) Problem: Chronic (6) HLD (hyperlipidemia) Problem: Chronic Qualifiers: (7) Dementia Problem: Suspected Qualifiers: Dementia behavioral disturbance: with behavioral disturbance
[2021-01-14] MEDS: ROSUVASTATIN CALCIUM 5 MG TABLET PO SCH (21:56)
[2021-01-15] MEDS: ALBUTEROL SULFATE/IPRATROPIUM 3 ML NEBU IH SCH ×2 (02:12→06:00)
[2021-01-15] MEDS: INSULIN LISPRO 100 UNITS/ML VIAL SC SCH (07:03)
--- NOTE | 2021-01-15 08:59 | PN ---
Progess Note - Interim Date: 01/15/21 Time: 08:57 Narrative: 01/15/21 08:57 AAO x 2. Says No to all ROS questions. afebrile. Awaiting NH placement.
[2021-01-15] MEDS ORDERED: LISINOPRIL 20 MG TABLET PO SCH (09:00)
[2021-01-15] MEDS: FERROUS SULFATE 325 MG TABLET PO SCH (09:02)
[2021-01-15] MEDS: CIPROFLOXACIN HCL 500 MG TABLET PO SCH (09:02)
[2021-01-15] MEDS: MULTIVITAMINS 1 CAP CAPSULE PO SCH (09:03)
[2021-01-15] MEDS: PARoxetine HCL 20 MG TABLET PO SCH (09:03)
[2021-01-15] MEDS: CYANOCOBALAMIN 1,000 MCG TABLET PO SCH (09:03)
[2021-01-15] MEDS: ASPIRIN 81 MG TAB.CHEW PO SCH (09:03)
--- NOTE | 2021-01-15 11:10 | DS ---
(1) Generalized weakness Problem: Acute (2) UTI (urinary tract infection) Problem: Resolved Qualifiers: Urinary tract infection type: acute cystitis Hematuria presence: with hematuria Qualified Code(s): N30.01 - Acute cystitis with hematuria (3) Hematuria Problem: Suspected (4) Diabetes Problem: Chronic (5) GERD (gastroesophageal reflux disease) Problem: Chronic (6) HLD (hyperlipidemia) Problem: Chronic Qualifiers: (7) Dementia Problem: Suspected Qualifiers: Dementia behavioral disturbance: with behavioral disturbance Date of Discharge:: 01/15/21 Hospital Course: Valentina Zamorano is an 85-year-old white female with past medical history significant for diabetes mellitus type 2, GERD, 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 She was in the emergency room 2 days ago and work-up then was done extensively including a head CT scan which showed no acute intracranial process. She was then sent home but then her weakness got even worse that the patient needed to have 2 people to assist her when transferring. She was also noted by family to be staring into space. The patient would start answering my questions but then again would say she did not know the answer. While transferring to her wheelchair today she slipped down and hurt her elbow. X-ray of both of her elbows showed possible fracture of the right radial head correlate clinically. There was no fracture of the left elbow however when she did have contusion and laceration of her skin in that area. Her white blood cell count today is 11.5, hemoglobin of 11.2, MCV of 90.8, random blood sugar of 221, TSH normal. Her urinalysis was positive for nitrate, blood, RBCs, leukocyte esterase, and bacteria. Her lactic acid initially was high. It was also noted that there was blood in her depends. She was then admitted for further evaluation and treatment. I was not able to get too much from the patient really and my history of physical illness is mostly based on the emergency room notes. Addendum: The daughter is now here. 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 Her mentation also declined and although she was never diagnosed with dementia she feels her mother has dementia and her behavior has really changed recently. When her area of her right radial head was pressed down she did not grimace. Clinically no fracture. She was started on IV antibiotics and her UCS grew E. Fecalis. She was changed to Cipro and she nolonger has hematuria. She is AAO x 2 but I think and agree with the daughter that she has baseline dementia. She is stable to be discharged today. Procedures Performed: none Results and Findings: Lab Pending Results 01/09/21 09:12: WBC 11.5 H D, RBC 4.00 L, Hgb 11.2 L, Hct 36.3 L, MCV 90.8, MCH 28.0, MCHC 30.9 L, RDW 12.3, Plt Count 240, MPV 10.2, Immature Gran % (Auto) 0.30, Immature Gran # (Auto) 0.03, Neutrophils % 71.5, Lymphocytes % 20.5, Monocytes % 5.8, Eosinophils % 1.6, Basophils % 0.3, Nucleated RBC % 0.0, Neutrophils # 8.3 H, Lymphocytes # 2.36, Monocytes # 0.7, Eosinophils # 0.2, Absolute Basophils 0.0 01/09/21 09:26: Sodium 138, Plasma Sodium 140, Potassium 3.7, Chloride 101, Carbon Dioxide 25.8, Anion Gap 14.9 H, BUN 16, Creatinine 1.46 H, Est GFR (Non- Af Amer) 36 L D, BUN/Creatinine Ratio 11.0, Random Glucose 221 H D, Calcium 8.4, Calcium Adj for Albumin 8.5, Total Bilirubin 0.4, AST 16, ALT 14 L, Alkaline Phosphatase 58, Troponin I Less than 0.017, B-Natriuretic Peptide 435, Total Protein 7.6, Albumin 3.5, TSH 3.190 01/09/21 09:26: Lactic Acid, Venous 3.5 H* 01/09/21 09:26: Ammonia 22.0 01/09/21 09:32: Urine Color Yellow, Urine Appearance Bloody, Urine pH 7.0, Ur Specific Jonancy 1.020, Urine Protein >=300 H, Urine Glucose (UA) Negative, Urine Ketones 5, Urine Blood 250 H, Urine Nitrate Positive H, Urine Bilirubin Negative, Urine Urobilinogen Normal, Ur Leukocyte Esterase 500 H, Urine RBC >50 H, Urine WBC >50 H, Ur Epithelial Cells None seen, Urine Bacteria 3+ H, Urine Culture Comments Culture to follow 01/09/21 09:38: Stool Occult Blood Negative 01/09/21 11:46: Lactic Acid, Venous 1.1 01/10/21 12:52: PT 11.6 H, INR (Anticoag Therapy) 1.12 H 01/11/21 06:40: WBC 14.0 H D, RBC 3.61 L, Hgb 10.2 L, Hct 32.4 L, MCV 89.8, MCH 28.3, MCHC 31.5 L, RDW 12.5, Plt Count 236, MPV 9.9, Immature Gran % (Auto) 0.50 H, Immature Gran # (Auto) 0.07 H, Neutrophils % 74.0, Lymphocytes % 16.8 L, Monocytes % 8.5, Eosinophils % 0.0, Basophils % 0.2, Nucleated RBC % 0.0, Neutrophils # 10.4 H, Lymphocytes # 2.35, Monocytes # 1.2 H, Eosinophils # 0.0, Absolute Basophils 0.0 01/11/21 06:40: Sodium 143 H, Plasma Sodium 144 H, Potassium 3.1 L, Chloride 103, Carbon Dioxide 27.0, Anion Gap 16.1 H, BUN 14, Creatinine 1.25, Est GFR (Non-Af Amer) 44 L D, BUN/Creatinine Ratio 11.2, Random Glucose 175 H, Calcium 8.0 01/11/21 06:40: Mean Blood Glucose 151, Hemoglobin A1c 6.9 H 01/12/21 08:45: WBC 13.5 H, RBC 3.72 L, Hgb 10.4 L, Hct 33.0 L, MCV 88.7, MCH 28.0, MCHC 31.5 L, RDW 12.6, Plt Count 282, MPV 10.0, Immature Gran % (Auto) 0.40, Immature Gran # (Auto) 0.05 H, Neutrophils % 74.0, Lymphocytes % 16.1 L, Monocytes % 8.4, Eosinophils % 0.9, Basophils % 0.2, Nucleated RBC % 0.0, Neutrophils # 10.0 H, Lymphocytes # 2.18, Monocytes # 1.1 H, Eosinophils # 0.1, Absolute Basophils 0.0 01/12/21 08:45: Sodium 140, Plasma Sodium 141, Potassium 3.5, Chloride 104, Carbon Dioxide 27.6, Anion Gap 11.9, BUN 10, Creatinine 1.22, Est GFR (Non-Af Amer) 45 L, BUN/Creatinine Ratio 8.2 L, Random Glucose 170 H, Calcium 8.0 01/13/21 07:30: WBC 10.6 H D, RBC 3.61 L, Hgb 10.1 L, Hct 32.0 L, MCV 88.6, MCH 28.0, MCHC 31.6 L, RDW 12.5, Plt Count 281, MPV 10.1, Immature Gran % (Auto) 0.40, Immature Gran # (Auto) 0.04 H, Neutrophils % 68.8, Lymphocytes % 19.6 L, Monocytes % 8.6, Eosinophils % 2.1, Basophils % 0.5, Nucleated RBC % 0.0, Neutrophils # 7.3 H, Lymphocytes # 2.09, Monocytes # 0.9, Eosinophils # 0.2, Absolute Basophils 0.1 Discharge Location: Other - [facility] Disposition: SNF Condition: Fair Level of Care: SNF Discharge Activity: Activity as tolerated Discharge Diet: Consistent carbs Prison Therapy: Physical Therapy, Occupation Therapy, Speech Therapy Referrals: Nelly Herbert ARNP [Primary Care Provider] - Additional Patient Instructions (free text): [facility]- PT, OT, Speech to evaluate and treat. Prescriptions (Any new or edited meds): Ciprofloxacin HCl [Cipro] 500 mg PO BID #8 tab Transmission Status: Pending to [facility] Benzonatate [Tessalon] 100 mg PO TID PRN #15 cap PRN Reason: Cough Transmission Status: Pending to [facility] Complete Home Medications List: Complete Home Medication List: Cyanocobalamin [Vitamin B-12] 1,000 mcg PO DAILY 03/18/15 Aspirin 81 mg PO DAILY 02/25/17 Docusate Sodium [Doc-Q-Lace] 100 mg PO DAILY PRN 02/25/17 Multivitamin [Multivitamins] 1 ea PO DAILY 11/16/17 Acetaminophen [Tylenol] 325 mg PO ONCE PRN 03/02/18 pyridostigmine bromide 180 mg tablet,extended release 60 mg PO TID PRN #30 tab 05/14/18 paroxetine HCl 20 mg tablet 20 mg PO DAILY #30 tab 06/26/18 acetaminophen 650 mg tablet,extended release 1,300 mg PO BID #180 tab 07/18/18 atorvastatin 10 mg tablet 10 mg PO HS #90 tab 09/24/18 ferrous gluconate 324 mg (37.5 mg iron) tablet 324 mg PO DAILY #30 tab 09/24/18 Clopidogrel Bisulfate [Plavix] 75 mg PO DAILY 01/07/21 Benzonatate [Tessalon] 100 mg PO TID PRN #15 cap 01/15/21 Ciprofloxacin HCl [Cipro] 500 mg PO BID #8 tab 01/15/21 Forms: Patient Portal Registration
[2021-01-15 13:05] VITALS: BP 145/55
== END 2021-01-15 12:23 | DRG 690 ==
LOC: MS 08:45 → ER 08:45 → MS 13:12
PROVIDERS: ADMIT Internal Medicine; ATTEND Internal Medicine
DX: W05.0XXA Fall from non-moving wheelchair, initial encounter; M25.522 Pain in left elbow; E11.9 Type 2 diabetes mellitus without complications; N30.01 Acute cystitis with hematuria; B95.2 Enterococcus as the cause of diseases classified elsewhere; R53.1 Weakness; Y92.238 Other place in hospital as the place of occurrence of the external cause; I69.351 Hemiplegia and hemiparesis following cerebral infarction affecting right dominant side; E78.5 Hyperlipidemia, unspecified; I95.1 Orthostatic hypotension; K21.9 Gastro-esophageal reflux disease without esophagitis; S51.012A Laceration without foreign body of left elbow, initial encounter; F03.91 Unspecified dementia, unspecified severity, with behavioral disturbance; R06.2 Wheezing